=== PATIENT | male | born 1950 | race Hispanic/Latino ===

== ENCOUNTER 2016-08-24 05:44 | Day surgery (SDC) | payer MEDICARE ==
[2016-08-24] MEDS ORDERED: ANCEF/STERILE WATER 2 GM/20 ML 2 GM/20 ML SYRINGE IV NR (06:00)
[2016-08-24] MEDS ORDERED: NACL BACTERIOSTATIC INFILTRATI ONE (06:31)
[2016-08-24] MEDS ORDERED: PEPCID PO NR (07:00)
[2016-08-24] MEDS ORDERED: NEO SYNEPHRINE/NS Syringe(OR USE) IV ONE (07:00)
[2016-08-24] MEDS ORDERED: VERSED IV NR (07:00)
[2016-08-24] MEDS ORDERED: NACL 0.9% 1000 ML 1,000 ML IV SCH (07:00)
[2016-08-24] MEDS ORDERED: SUBLIMAZE ONE (07:30)
[2016-08-24] MEDS ORDERED: ZOFRAN ONE (07:30)
[2016-08-24] MEDS ORDERED: XYLOCAINE MPF 2% ONE ×2 (07:30)
[2016-08-24] MEDS ORDERED: DIPRIVAN 10 MG/ML IV ONE (07:30)
[2016-08-24] MEDS ORDERED: PROTAMINE SULFATE ONE (07:40)
[2016-08-24] MEDS ORDERED: HEPARIN 10,000 UNITS/10 ML ONE (07:40)
[2016-08-24] MEDS ORDERED: NACL 0.9% 500 ML 500 ML ONE (07:40)
[2016-08-24] MEDS ORDERED: MARCAINE 0.5% 30 ML INFILTRATI ONE (07:40)
--- NOTE | 2016-08-24 07:44 | Anesthesia Day of Surgery ---
Anesthesia Day of Surgery - Day of Surgery Patient Examined: Yes Patient H&P Reviewed: Yes Patient is NPO: Yes
--- NOTE | 2016-08-24 07:44 | Anesthesia Consultation ---
Anesthesia Consult and Med Hx Date of service: 08/24/16 - Airway Anesthetic Teeth Evaluation: Poor ROM Head & Neck: Adequate Mental/Hyoid Distance: Adequate Mallampati Class: Class II Intubation Access Assessment: Probably Good - Pulmonary Exam CTA: Yes - Cardiac Exam Cardiac Exam: RRR - Pre-Operative Health Status ASA Pre-Surgery Classification: ASA4 Proposed Anesthetic Plan: General - Pulmonary Hx Smoking: No Hx Asthma: No SOB: Yes (with exertion, recent right pleural effusion.) COPD: Yes Home Oxygen Therapy: Yes (O2 2L/m on 01/10 per ) Hx Sleep Apnea: No - Cardiovascular System Hx Hypertension: No (STATES HE DOESN'T HAVE HTN BUT TAKES METOPROLOL FOR HEART) Hx Coronary Artery Disease: No Hx Heart Attack/AMI: No Hx Pacemaker: Yes Hx Internal Defibrillator: Yes (2014. HAD CHECKED 3 MONTHS AGO. FOR CHF) Hx Peripheral Vascular Disease: Yes - Central Nervous System Hx Seizures: No CVA: No Hx Psychiatric Problems: No - Endocrine Hx Renal Disease: Yes (Dialysis T-T-S) Hx End Stage Renal Disease: Yes Hx Cirrhosis: No Hx Liver Disease: No Hx Thyroid Disease: No Hx Hypothyroidism: No Hx Hyperthyroidism: No - Hematic Hx Anemia: Yes Hx Sickle Cell Disease: No - Other Systems Hx Cancer: No - Additional Comments Anesthesia Medical History Comments: NAC
[2016-08-24] MEDS ORDERED: PROVENTIL IH NR (07:45)
[2016-08-24 08:00] LABS: Basophils % (Auto) 0.8 % (0.0-1.8); Eosinophils % (Auto) 1.3 % (0.0-4.3); Hematocrit 46.9 % (35.5-45.6); Hemoglobin 15.1 gm/dl (11.8-15.2); Mean Corpuscular HGB Conc 32 % (32-34); Mean Corpuscular Hemoglobin 31 pg (28-32); Mean Corpuscular Volume 97 fl (84-94); Red Blood Count 4.82 M/mm3 (3.65-5.03); Red Cell Distribution Width 15.8 % (13.2-15.2); White Blood Count 9.3 K/mm3 (4.5-11.0)
[2016-08-24 08:25] LABS: Platelet Count 94 K/mm3 (140-440)
[2016-08-24] MEDS ORDERED: AMIDATE IV ONE (09:29)
[2016-08-24 09:30] LABS: ISTAT K 5.8 (3.5-4.9)
[2016-08-24] MEDS ORDERED: DILAUDID IV PRN (10:08)
[2016-08-24] MEDS ORDERED: MARCAINE 0.25% INFILTRATI ONE ×2 (10:14)
[2016-08-24] MEDS ORDERED: NACL 0.9% IR ONE (10:14)
[2016-08-24] MEDS ORDERED: HEPARIN 10,000 UNITS/10 ML 2,000 UNIT in NACL 0.9% 500 ML 500 ML IR ONE (10:16)
--- NOTE | 2016-08-24 10:45 | Short Stay Summary ---
Short Stay Documentation Date of service: 08/24/16 Narrative H&P: See H&P - History H&P: obtained from office - Allergies and Medications Current Medications: Allergies No Known Allergies Allergy (Verified 06/16/15 08:44) Home Medications Medication Instructions Recorded Confirmed Last Taken Type Aspirin [Aspirin BABY CHEW TAB] 81 mg PO QDAY 06/16/15 08/24/16 08/23/16 History Cinacalcet HCl [Sensipar] 60 mg PO BID 06/16/15 08/24/16 08/23/16 History Metoprolol [Lopressor TAB] 50 mg PO BID 06/16/15 08/24/16 08/23/16 18:00 History Ipratropium/Albuterol Sulfate 1 ampul IH Q6HR PRN 10/03/15 08/24/16 07/26/16 History [Duoneb 0.5 mg-3 mg/3 ml Soln] oxyCODONE /ACETAMINOPHEN [Percocet 1 tab PO Q6HR PRN #20 tablet 10/25/1508/17/16 Rx 5/325] Active Medications Albuterol (Proventil) 2.5 mg IH PREOP NR Stop: 08/24/16 11:00 Last Admin: 08/24/16 07:53 Dose: 2.5 mg Famotidine (Pepcid) 20 mg PO PREOP NR Stop: 08/24/16 23:45 Last Admin: 08/24/16 07:22 Dose: 20 mg Hydromorphone HCl (Dilaudid) 0.25 mg IV Q10MIN PRN PRN Reason: Pain, Moderate (4-6) Stop: 08/27/16 10:09 Cefazolin Sodium (Ancef/Sterile Water 2 Gm/20 Ml) 2 gm in 20 mls @ 80 mls/hr IV PREOP NR PRN Reason: Protocol Stop: 08/24/16 23:59 Sodium Chloride (Nacl 0.9% 1000 Ml) 1,000 mls @ 42 mls/hr IV DIRECT TRISTIN Last Admin: 08/24/16 07:23 Dose: 42 mls/hr Midazolam HCl (Versed) 2 mg IV PREOP NR Stop: 08/24/16 23:59 Ondansetron HCl (Zofran) 4 mg IV ONCE PRN PRN Reason: Nausea And Vomiting Stop: 08/24/16 10:09 - Brief post op/procedure progress note Date of procedure: 08/24/16 Pre-op diagnosis: Complications of Dialysis Access Post-op diagnosis: same Procedure: Open Thrombectomy of Right Arm AV Fistula Anesthesia: LOW Surgeon: TESHA ALVAREZ Estimated blood loss: minimal Pathology: none Condition: stable - Disposition Condition at discharge: Good Disposition: DC-01 TO HOME OR SELFCARE Short Stay Discharge Plan Activity: no restrictions, other Wound: open to air, keep clean and dry, other (okay to wash the wound with soap and water but do not soak in water) Follow up with: PRIMARY CARE, [Primary Care Provider] - 7 Days Prescriptions: HYDROcodone/APAP 7.5-325 [[place] 7.5/325] 1 each PO Q6HR PRN #40 tablet PRN Reason: Pain
--- NOTE | 2016-08-24 10:52 | Operative Report ---
Operative Report Operative Report: Date of Procedure: 08/24/2016 Pre-operative Diagnosis: Complications of Dialysis Access Post-operative Diagnosis: Same Procedure(s): 1. Open Thrombectomy of Right Arm AV Fistula Surgeon: Hero Vogt M.D. Supervisor [employer] Office: [place] Anesthesia: Gen. endotracheal anesthesia EBL: Minimal Counts: Correct Complications: None Condition: Stable Findings: Successful thrombectomy right arm AV fistula with excellent thrill at the completion of the case. Specimen: None Indication: The patient is a 66-year-old male with a history of end-stage renal disease on hemodialysis through a right arm AV fistula. He had a previous percutaneous thrombectomy however there was residual thrombus within the fistula that was unable to be removed. He is in need of thrombectomy. He was given the risks, benefits, and alternative procedures and consented to procedure. Description of Procedure: The patient was brought to the operating room and laid in supine position. After general endotracheal anesthesia was achieved his right arm was prepped and draped in normal sterile fashion. A longitudinal incision was created over the fistula just proximal to the arterial anastomosis and carried onto the fascia and sharp dissection. This was dissected circumferentially and a vessel loop control the venous outflow as well as arterial inflow. I then used an 11 blade and Chavez scissors created a transverse venotomy to perform the thrombectomy. I initially used a 6 Jamia however this was too small to remove any significant amount of thrombus used a 6/10 Jamia graft adherent thrombus to be catheter and was able to remove all thrombus that was likely stuck to the wall of the first. After removing this the bleeding from the venous portion was much more robust. I then used 6-0 Prolene in interrupted fashion closed the venotomy. Prior to closing the venotomy I flushed the venous portions was arterial portion and completed the closure. Upon release of clamps was an excellent thrill in the fistula. Hemostasis was achieved with direct pressure. Once hemostasis was achieved the wound was closed in 2 layers using 3-0 Vicryl in an interrupted fashion a dermal layer and 4-0 Monocryl a running fashion subcuticular and then the wound was dressed with Dermabond. The patient tolerated the procedure well. All sponge, needle, and instrument counts were correct. The patient was taken to the recovery area in stable condition.
--- NOTE | 2016-08-24 11:02 | Post Anesthesia Evaluation ---
- Post Anesthesia Evaluation Patient Participated: Yes Airway Patent: Yes Stable Respiratory Function: Yes Nausea/Vomiting: No Temp > 96.8F: Yes Pain Manageable: Yes Adequeate Hydration: Yes Anesthesia Complications: No Block Receding Appropriately: Not Applicable Patient on Ventilator: No
[2016-08-24] MEDS ORDERED: ZOFRAN IV PRN (12:00)
[2016-08-24 12:54] VITALS: BP 159/98
== END 2016-08-24 12:24 | disposition home or self-care (01) ==
LOC: OR 05:44
PROVIDERS: ATTEND Surgery Vascular Surgery
DX: T82.868A Thrombosis due to vascular prosthetic devices, implants and grafts, initial encounter (principal); N18.6 End stage renal disease; J44.9 Chronic obstructive pulmonary disease, unspecified; D64.9 Anemia, unspecified; Z99.2 Dependence on renal dialysis; Z99.81 Dependence on supplemental oxygen; Z95.0 Presence of cardiac pacemaker; Z95.810 Presence of automatic (implantable) cardiac defibrillator; Z86.79 Personal history of other diseases of the circulatory system; Y83.2 Surgical operation with anastomosis, bypass or graft as the cause of abnormal reaction of the patient, or of later complication, without mention of misadventure at the time of the procedure
CPT/HCPCS: 36415; 36831; 82803; 84132; 85025; C1757; J0690; J1644; J2370; J2405; J2704; J3010; J7030; J7040; J2720

== ENCOUNTER 2017-02-25 08:27 | Inpatient (IN) | payer MEDICARE ==
[2017-02-25 09:08] LABS: Basophils % (Auto) 0.4 % (0.0-1.8); Eosinophils % (Auto) 1.5 % (0.0-4.3); Hematocrit 43.6 % (35.5-45.6); Hemoglobin 13.8 gm/dl (11.8-15.2); Mean Corpuscular HGB Conc 32 % (32-34); Mean Corpuscular Hemoglobin 31 pg (28-32); Mean Corpuscular Volume 98 fl (84-94); Red Blood Count 4.47 M/mm3 (3.65-5.03); Red Cell Distribution Width 16.2 % (13.2-15.2); White Blood Count 5.9 K/mm3 (4.5-11.0)
[2017-02-25 09:12] LABS: Platelet Count 96 K/mm3 (140-440)
[2017-02-25 09:29] LABS: Calcium 10.4 mg/dL (8.4-10.2); Chloride 93.5 mmol/L (98-107); Potassium 5.9 mmol/L (3.6-5.0)
[2017-02-25] MEDS ORDERED: HEPARIN 10,000 UNITS/10 ML ONE (10:03)
[2017-02-25] MEDS ORDERED: VERSED ONE (10:03)
[2017-02-25] MEDS ORDERED: HEPARIN/NS 5000 UNIT/500ML(CATH LAB) 500 ML IR ONE (10:03)
[2017-02-25] MEDS ORDERED: ANCEF/STERILE WATER 2 GM/20 ML 0 GM/0 ML SYRINGE IV ONE (10:04)
[2017-02-25] MEDS ORDERED: NACL 0.9% 500 ML 0 ML ONE (10:04)
[2017-02-25] MEDS ORDERED: XYLOCAINE 2% INFILTRATI ONE (10:04)
[2017-02-25] MEDS ORDERED: SUBLIMAZE ONE (10:04)
--- NOTE | 2017-02-25 10:45 | Event Note ---
Date: 02/25/17 Patient was brought in as an outpatient with a goal of performing a fistulogram from both and arm approach as well as a groin approach in an attempt to cross the patient's central venous occlusion and then placed drug coated balloons across this lesion in an attempt to allow it to remain open. The patient however presented with a potassium of 5.9 and the inability to lay flat secondary to volume overload. The patient stated that he had a full dialysis session on Saturday however, uncertain as to the amount of fluid removed. The patient's care was discussed with his investment associate Dr. Ballard who recommended admission to the hospitalist service at which point he lace orders for dialysis. The patient's procedure will be rescheduled for tomorrow.
[2017-02-25] MEDS ORDERED: NACL 0.9% 100 ML IV PRN (11:13)
[2017-02-25] MEDS ORDERED: DULCOLAX PR PRN ×2 (11:36→11:42)
[2017-02-25] MEDS ORDERED: TYLENOL PO PRN ×2 (11:36→11:42)
[2017-02-25] MEDS ORDERED: ZOFRAN IV PRN ×2 (11:36→11:42)
[2017-02-25] MEDS ORDERED: MILK OF MAGNESIA PO PRN (11:42)
--- NOTE | 2017-02-25 11:57 | History and Physical Report ---
History of Present Illness Date of admission: 02/25/17 11:36 Chief complaint: I need to have surgery History of present illness: 66 YO Male with COPD, HTN, CHF, ESRD on HD(T,R,Sa), DVT, presents to [facility] for elective procedure. Pt seen and evaluated in Preop and found to have hyperkalemia and Acute respiratory fajilure secondary to fluid overload. Pt seen and evaluated and admitted to hospitalist service. Pt acknowledges shortness of breath, but denies fever, chills, CP, Palpitations, NVD, Syncope, BRBPR, Productive cough, recent ill contacts, leg swelling, calf pain, prolonged travel/immobility. Past History Past Medical History: COPD, ESRD, heart failure, hypertension Past Surgical History: Other (AICD placement, Angioplasty) Social history: , lives with family. denies: smoking, alcohol abuse, prescription drug abuse Family history: CAD, hypertension Medications and Allergies Allergies Allergy/AdvReac Type Severity Reaction Status Date / Time No Known Allergies Allergy Verified 06/16/15 08:44 Home Medications Medication Instructions Recorded Confirmed Last Taken Type Aspirin [Aspirin BABY CHEW TAB] 81 mg PO QDAY 06/16/15 02/25/17 02/24/17 History 81mg Cinacalcet HCl [Sensipar] 60 mg PO BID 06/16/15 02/25/17 02/24/17 History 60mg Metoprolol [Lopressor TAB] 50 mg PO BID 06/16/15 02/25/17 02/24/17 History 50mg Ipratropium/Albuterol Sulfate 1 ampul IH Q6HR PRN 10/03/15 02/25/17 02/23/17 History [DUONEB *Not for PRN Use*] unit dose HYDROcodone/APAP 7.5-325 [[place] 1 each PO Q6HR PRN #40 tablet 08/24/16 02/25/17 02/24/17 Rx 7.5/325] 1 tab Acetaminophen/Diphenhydramine 1 tab PO PRN PRN 02/25/17 02/25/17 02/24/17 History [Tylenol Pm Ex-Strength Caplet] 1 tab Sevelamer Carbonate [Renvela] 800 mg PO TID 02/25/17 02/25/17 02/24/17 History 800mg Active Meds: Active Medications Acetaminophen (Tylenol) 650 mg PO Q4H PRN PRN Reason: Pain MILD(1-3)/Fever >100.5/RAMIREZ Acetaminophen (Tylenol) 650 mg PO Q4H PRN PRN Reason: Pain MILD(1-3)/Fever >100.5/RAMIREZ Aspirin (Baby Aspirin) 81 mg PO QDAY [facility] Bisacodyl (Dulcolax) 10 mg TN QDAY PRN PRN Reason: Constipation unrelieved by MOM Bisacodyl (Dulcolax) 10 mg TN QDAY PRN PRN Reason: Constipation unrelieved by MOM Heparin Sodium (Porcine) (Heparin) 5,000 unit SUB-Q Q12HR [facility] Sodium Chloride (Nacl 0.9%) 100 mls @ 999 mls/hr IV REINA PRN PRN Reason: Hypotension Magnesium Hydroxide (Milk Of Magnesia) 30 ml PO Q4H PRN PRN Reason: Constipation Metoprolol Tartrate (Lopressor) 50 mg PO BID [facility] Miscellaneous Medication (Cinacalcet Hcl [Sensipar]) 60 mg PO BID [facility] Miscellaneous Medication (Sevelamer Carbonate [Renvela]) 800 mg PO TID [facility] Morphine Sulfate (Morphine) 2 mg IV Q4H PRN PRN Reason: Pain, Moderate (4-6) Ondansetron HCl (Zofran) 4 mg IV Q8H PRN PRN Reason: N/V unrelieved by Odin Ondansetron HCl (Zofran) 4 mg IV Q8H PRN PRN Reason: N/V unrelieved by Odin Review of Systems Constitutional: weight gain, no weight loss, no fever, no sweats Ears, nose, mouth and throat: no ear pain, no ear discharge, no tinnitis, no decreased hearing Cardiovascular: shortness of breath, no chest pain, no orthopnea, no palpitations, no rapid/irregular heart beat, no edema, no syncope Respiratory: no cough, no cough with sputum, no excessive sputum, no hemoptysis Gastrointestinal: no nausea, no vomiting, no diarrhea, no constipation Genitourinary Male: no hematuria, no flank pain, no discharge, no urinary frequency, no urinary hesitancy Rectal: no pain, no incontinence, no bleeding Musculoskeletal: no neck stiffness, no neck pain, no shooting arm pain, no arm numbness/tingling, no low back pain, no shooting leg pain Integumentary: no rash, no pruritis, no redness, no sores, no wounds Neurological: no head injury, no transient paralysis, no paralysis, no weakness , no parathesias, no numbness, no tingling, no seizures Psychiatric: no anxiety, no memory loss, no change in sleep habits, no sleep disturbances, no insomnia, no hypersomnia, no change in appetite Endocrine: no cold intolerance, no heat intolerance, no polyphagia, no excessive thirst, no polydipsia, no polyuria, no nocturia Hematologic/Lymphatic: no easy bruising, no easy bleeding Allergic/Immunologic: no urticaria, no allergic rhinitis, no wheezing Exam - Constitutional Vitals: Temp Pulse Resp BP Pulse Ox 97.7 F 89 20 127/75 99 02/25/17 08:48 02/25/17 08:48 02/25/17 09:30 02/25/17 08:48 02/25/17 08:48 General appearance: Present: mild distress - EENT Eyes: Present: PERRL ENT: hearing intact, clear oral mucosa - Respiratory Respiratory effort: normal Respiratory: bilateral: diminished, rhonchi - Cardiovascular Heart Sounds: Present: S1 & S2. Absent: rub, click - Extremities Extremities: pulses symmetrical, No edema Peripheral Pulses: within normal limits - Abdominal General gastrointestinal: Present: soft, non-tender, non-distended, normal bowel sounds Male genitourinary: Present: normal - Integumentary Integumentary: Present: clear, warm, dry - Musculoskeletal Musculoskeletal: gait normal, strength equal bilaterally - Psychiatric Psychiatric: appropriate mood/affect, intact judgment & insight - Neurologic Neurologic: CNII-XII intact, moves all extremities Results - Labs CBC & Chem 7: 02/25/17 08:50 02/25/17 08:50 Labs: Abnormal lab results 02/25/17 02/25/17 Range/Units 08:50 08:50 MCV 98 H (84-94) fl RDW 16.2 H (13.2-15.2) % Plt Count 96 L (140-440) K/mm3 Lymph % (Auto) 9.1 L (13.4-35.0) % [place] % (Auto) 8.3 H (0.0-7.3) % Lymph # 0.5 L (1.2-5.4) K/mm3 Seg Neutrophils % 80.7 H (40.0-70.0) % Potassium 5.9 H (3.6-5.0) mmol/L Chloride 93.5 L (98-107) mmol/L BUN 46 H (9-20) mg/dL Creatinine 12.3 H (0.8-1.5) mg/dL Calcium 10.4 H (8.4-10.2) mg/dL Assessment and Plan - Patient Problems (1) CHF (congestive heart failure) Current Visit: Yes Status: Acute Plan to address problem: fluid restriction, daily weight, diuresis, dialysis as per nephrology, supplemental oxygen, monitor uop q shift to ensure negative fluid balance, (2) HTN (hypertension) Current Visit: Yes Status: Acute Plan to address problem: monitor BP q shift, (3) End stage renal disease on dialysis Current Visit: No Status: Chronic Plan to address problem: nephrology consulted for dialysis, dialysis as per renal team. (4) COPD (chronic obstructive pulmonary disease) Current Visit: Yes Status: Acute Plan to address problem: supplemental oxygen, nebs, aspiration precautions, pulmonary toilet (5) DVT prophylaxis Current Visit: Yes Status: Acute
[2017-02-25] MEDS: RENVELA PO SCH (13:22)
[2017-02-25] MEDS ORDERED: NON-FORMULARY (Sevelamer Carbonate [Renvela] 800 MG) PO SCH (14:00)
[2017-02-25] MEDS ORDERED: KIONEX PO ONE (16:03)
[2017-02-25] MEDS ORDERED: CALCIUM GLUCONATE 1,000 MG in NACL 0.9% 100 ML IV ONE (16:03)
--- NOTE | 2017-02-25 16:06 | Consultation ---
History of Present Illness - Reason for Consult Consult date: 02/25/17 end stage renal disease, hyperkalemia Requesting physician: SUZANNA FIGUEROA - History of Present Illness This is a 66 y.o., male with PMHX of hypertension, COPD, chronic systolic CHF with EF <15%, s/p AICD in 02/2014, h/o DVT not on anticoagulation due to h/o GI bleed, ESRD on HD on T/T/S, who presented to outpatient vascular surgery service for a fistulogram from both arm and groin approach for treatment of central venous occlusion. However patient was found to have hyperkalemia and acute respiratory distress secondary to fluid overload and renal consult is requested for management of ESRD and HD prior to procudure. Pt seen and evaluated at bedside, reports shortness of breath, but denies fever, chills, CP , Palpitations, NVD, Syncope, BRBPR, Productive cough, recent ill contacts, leg swelling, calf pain, prolonged travel/immobility. Past History Past Medical History: COPD, ESRD, heart failure, hypertension Past Surgical History: Other (AICD placement, Angioplasty) Social history: , lives with family. denies: smoking, alcohol abuse, prescription drug abuse Family history: CAD, hypertension Medications and Allergies Allergies Allergy/AdvReac Type Severity Reaction Status Date / Time No Known Allergies Allergy Verified 06/16/15 08:44 Home Medications Medication Instructions Recorded Confirmed Last Taken Type Aspirin [Aspirin BABY CHEW TAB] 81 mg PO QDAY 06/16/15 02/25/17 02/24/17 History 81mg Cinacalcet HCl [Sensipar] 60 mg PO BID 06/16/15 02/25/17 02/24/17 History 60mg Metoprolol [Lopressor TAB] 50 mg PO BID 06/16/15 02/25/17 02/24/17 History 50mg Ipratropium/Albuterol Sulfate 1 ampul IH Q6HR PRN 10/03/15 02/25/17 02/23/17 History [DUONEB *Not for PRN Use*] unit dose HYDROcodone/APAP 7.5-325 [[place] 1 each PO Q6HR PRN #40 tablet 08/24/16 02/25/17 02/24/17 Rx 7.5/325] 1 tab Acetaminophen/Diphenhydramine 1 tab PO PRN PRN 02/25/17 02/25/17 02/24/17 History [Tylenol Pm Ex-Strength Caplet] 1 tab Sevelamer Carbonate [Renvela] 800 mg PO TID 02/25/17 02/25/17 02/24/17 History 800mg Active Meds: Active Medications Acetaminophen (Tylenol) 650 mg PO Q4H PRN PRN Reason: Pain MILD(1-3)/Fever >100.5/RAMIREZ Acetaminophen (Tylenol) 650 mg PO Q4H PRN PRN Reason: Pain MILD(1-3)/Fever >100.5/RAMIREZ Aspirin (Baby Aspirin) 81 mg PO QDAY [facility] Bisacodyl (Dulcolax) 10 mg DC QDAY PRN PRN Reason: Constipation unrelieved by MOM Bisacodyl (Dulcolax) 10 mg DC QDAY PRN PRN Reason: Constipation unrelieved by MOM Cinacalcet (Sensipar) 60 mg PO BID [facility] Heparin Sodium (Porcine) (Heparin) 5,000 unit SUB-Q Q12HR [facility] Sodium Chloride (Nacl 0.9%) 100 mls @ 999 mls/hr IV REINA PRN PRN Reason: Hypotension Calcium Gluconate 1,000 mg/ (Sodium Chloride) 110 mls @ 660 mls/hr IV ONCE ONE Stop: 02/25/17 16:12 Magnesium Hydroxide (Milk Of Magnesia) 30 ml PO Q4H PRN PRN Reason: Constipation Metoprolol Tartrate (Lopressor) 50 mg PO BID [facility] Morphine Sulfate (Morphine) 2 mg IV Q4H PRN PRN Reason: Pain, Moderate (4-6) Ondansetron HCl (Zofran) 4 mg IV Q8H PRN PRN Reason: N/V unrelieved by Reglan Ondansetron HCl (Zofran) 4 mg IV Q8H PRN PRN Reason: N/V unrelieved by Reglan Sevelamer Carbonate (Renvela) 800 mg PO TID [facility] Last Admin: 02/25/17 13:22 Dose: 800 mg Sodium Polystyrene Sulfonate (Kionex) 30 gm PO ONCE ONE Stop: 02/25/17 16:04 Review of Systems All systems: negative Constitutional: fatigue, weakness Cardiovascular: shortness of breath, dyspnea on exertion Exam - Vital Signs Vital signs: Vital Signs Temp Pulse Resp BP Pulse Ox 97.7 F 89 20 127/75 99 02/25/17 08:48 02/25/17 08:48 02/25/17 08:48 02/25/17 08:48 02/25/17 08:48 - General Appearance General appearance: well-nourished, appears stated age, moderate distress, chronically ill EENT: ATNC, PERRL, mucous membranes moist Neck: Present: neck supple Respiratory: Decreased Breath Sounds Heart: regular, S1S2 Gastrointestinal: Present: normoactive bowel sounds, obese Integumentary: no rash, other (+ UE edema ) Neurologic: no focal deficit, alert and oriented x3, strength 5/5, CN 3-12 intact Psychiatric: mood/affect appropriate, cooperative Results - Lab Results 02/25/17 08:50 02/25/17 08:50 Most recent lab results Calcium 10.4 mg/dL (8.4-10.2) H 02/25/17 08:50 Laboratory Tests 10/21/15 10/21/15 10/21/15 05:35 05:35 05:35 PT 24.4 H INR 2.19 H Calcium Magnesium 1.9 TSH 6.450 H 02/25/17 08:50 PT INR Calcium 10.4 H Magnesium TSH Assessment and Plan - Patient Problems (1) End stage renal disease on dialysis Current Visit: No Status: Chronic Plan to address problem: HD today then cont HD on TTS schedule (2) Hyperkalemia Current Visit: No Status: Acute Plan to address problem: arranged HD today with 2 K bath for correction of hyperkalemia, cont 2g k renal diet (3) HTN (hypertension) Current Visit: Yes Status: Acute Plan to address problem: BP controlled on current meds (4) Mechanical complication of arteriovenous access or graft Current Visit: No Status: Acute Plan to address problem: follow vascular surgery recommendations. (5) Secondary hyperparathyroidism Current Visit: No Status: Acute Plan to address problem: cont renvela, sensipar (6) COPD (chronic obstructive pulmonary disease) Current Visit: Yes Status: Acute
[2017-02-25] MEDS ORDERED: NACL 0.9 (PRIMING MACHINE ONLY DIALYSIS) MC ONE (21:14)
[2017-02-25] MEDS ORDERED: NON-FORMULARY (Cinacalcet Hcl [Sensipar] 60 MG) PO SCH (22:00)
[2017-02-26] MEDS: RENVELA PO SCH ×4 (00:05→20:51)
[2017-02-26] MEDS: LOPRESSOR PO SCH ×3 (00:06→22:53)
[2017-02-26] MEDS: SENSIPAR PO SCH ×3 (00:10→22:51)
[2017-02-26] MEDS: HEPARIN SUB-Q SCH ×3 (00:11→22:52)
[2017-02-26] MEDS: MORPHINE IV PRN ×2 (00:31→12:56)
[2017-02-26 05:26] LABS: Basophils % (Auto) 0.8 % (0.0-1.8); Hemoglobin 13.1 gm/dl (11.8-15.2); Mean Corpuscular HGB Conc 33 % (32-34); Mean Corpuscular Hemoglobin 31 pg (28-32); Mean Corpuscular Volume 96 fl (84-94); Platelet Count 90 K/mm3 (140-440); Red Blood Count 4.19 M/mm3 (3.65-5.03); Red Cell Distribution Width 15.8 % (13.2-15.2); White Blood Count 4.2 K/mm3 (4.5-11.0)
[2017-02-26 05:43] LABS: Calcium 9.9 mg/dL (8.4-10.2); Chloride 93.4 mmol/L (98-107); Potassium 5.1 mmol/L (3.6-5.0)
[2017-02-26] MEDS ORDERED: HEPARIN 10,000 UNITS/10 ML ONE (09:19)
[2017-02-26] MEDS ORDERED: HEPARIN/NS 5000 UNIT/500ML(CATH LAB) 1,000 ML IR ONE (09:19)
[2017-02-26] MEDS ORDERED: NACL 0.9% 500 ML 500 ML ONE (09:20)
[2017-02-26] MEDS ORDERED: ANCEF/STERILE WATER 2 GM/20 ML 2 GM/20 ML SYRINGE IV ONE (09:20)
[2017-02-26] MEDS: VERSED ONE ×3 (09:35→10:16)
[2017-02-26] MEDS: SUBLIMAZE ONE ×4 (09:35→10:19)
[2017-02-26] MEDS: XYLOCAINE 2% INFILTRATI ONE ×3 (09:39→09:52)
[2017-02-26] MEDS ORDERED: NACL 0.9% 100 ML IV PRN (10:35)
--- NOTE | 2017-02-26 10:57 | Operative Report ---
Operative Report Operative Report: Date of Procedure: 02/26/2017 Pre-operative Diagnosis: Complications of Dialysis Access Post-operative Diagnosis: Same Procedure(s): 1. Ultrasound-Guided Access Right Common Femoral Vein 2. Ultrasound-Guided Access Left Common Femoral Vein 3. Diagnostic Inferior Venacavogram with Bilateral Iliac and Femoral Venogram 4. Access Right AV Fistula with 7 Peruvian Sheath Venous 5. Fistulogram with Central Venogram 6. Angioplasty of Right Subclavian Vein with 9 x 60 Lutonix Drug-Coated Balloon 7. Angioplasty of Right Innominate Vein with 12 x 40 Lutonix Drug-Coated Balloon 8. Radiologic Supervision with Interpretation Surgeon: Hero Vogt M.D. 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 Occlusion of bilateral external and common iliac veins as well as complete occlusion of infrarenal inferior vena cava. Specimen: None Indication: The patient is a 66-year-old male with a history of end-stage renal disease currently on hemodialysis through a right arm AV fistula. 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 He has significant right upper extremity swelling as well as significant facial swelling. He is in need of a fistula with possible intervention. He was given the risk, benefits, and alternative procedures and consented to the procedure. Description of Procedure: The patient was brought to the labor relations representative and laid in supine position. After he was adequately sedated bilateral groins and right upper extremity were prepped and draped in normal sterile fashion. Ultrasound was used to identify his right common femoral vein and confirmed patency. The overlying skin and soft tissue was anesthetized with lidocaine and then a small stab incision was created. An access needle was used to ultrasound guidance and the right common femoral vein and a J-wire was advanced. The J-wire was unable to be advanced into the central venous system under fluoroscopy so the dilator was advanced into the femoral vein and a venograms performed that demonstrated occlusion of the external iliac as well as common iliac veins with multiple collateral veins providing flow out of the common femoral vein. No flow was ever seen filling the inferior vena cava. At this point the plan to use the right iliac system to enter the IVC and eventually crossed the occluded SVC was abandoned. I was not going to attempt to use the left side. Ultrasound was used to identify the left common femoral vein and confirmed patency. The overlying skin and soft tissue was anesthetized with lidocaine. A small stab incision was made and then an 18-gauge needle was used to ultrasound guidance to the left common femoral vein. A 0.035 J-wire was then advanced into the vein and again I was unable to advance the J-wire into the central venous system. I performed a venogram through the 18-gauge needle and again noticed significant collateral flow that demonstrated occlusion of the external iliac vein as well as the common leg vein. Again no flow was seen entering the inferior vena cava. Attempts to use the IVC to cross the upper extremity occlusion were then completely abandoned. I anesthetized the skin overlying the fistula and use micropuncture technique to access the fistula towards the venous outflow and placed a 7 [place]uvian sheath by Seldinger technique. I performed a fistulogram that demonstrated the fistulous patent without significant stenosis however there is a flush occlusion of the subclavian vein in the mid and distal portion with no reconstitution of flow noted in the innominate or SVC. I advanced a vertebral catheter and 0.035 Advantage wire to the area of occlusion and then exchanged my 7 [place]uvian 4 cm sheath for a 7 [place]uvian 45 cm destination sheath. At this point I systemically heparinized the patient with 4000 units of heparin IV. I then advanced a 5 Fr Navicross catheter over the Advantage wire and was able to traverse the occluded subclavian and innominate occlusions and into the SVC and advanced a catheter wire to the atrium. I was eventually to advance the catheter wire into the suprarenal SVC and performed an inferior venacavogram that confirmed patency of the suprarenal IVC as well as occlusion of the infrarenal IVC. I used a 6 x 200 predilate the areas of occlusion and then perform balloon angioplasty of the subclavian lesion with a 9 x 60 Lutonix Drug-Coated Balloon and the Innominate occlusion with a 12 x 40 Lutonix Drug- coated Balloon. The follow up fistulagram demonstrated less than 20% residual stenosis and no reflux of contrast into the collateral branches. At this point all balloons and wires were removed and a 4-0 chromic in pursestring fashion was used to close the entry site. It was dressed with Dermabond. The patient tolerated the procedure well. All sponge, needle, and instrument counts were correct. The patient was taken back to his room in stable condition.
[2017-02-26] MEDS: BABY ASPIRIN PO SCH (12:24)
--- NOTE | 2017-02-26 14:50 | Progress Note ---
Assessment and Plan Assessment and plan: Fluid overload ESRD on HD Occlusion of subclavian vein HTN CHF Debility - Continue with hemodialysis - Continue metoprolol - Physical therapy consult - Patient was evaluated by vascular surgery and procedure was done DVT prophylaxis - On heparin Disposition - Continue inpatient care - Patient may need subacute rehabilitation. History Interval history: Patient was seen and evaluated while he was at the hemodialysis unit, patient has some shortness of breath, no chest pain. Hospitalist Physical - Physical exam Narrative exam: Not in cardiopulmonary distress. The patient appeared well nourished and normally developed. Swelling of the face with plethora. Vital signs as documented. Head exam is unremarkable. No scleral icterus . Neck is without jugular venous distension, thyromegaly, or carotid bruits. Lungs decreased air entry on the bibasilar area. Cardiac exam reveals regular rate and Rhythm. First and second heart sounds normal. No murmurs, rubs or gallops. Abdominal exam reveals normal bowel sounds, no masses, no organomegaly and no aortic enlargement. Extremities dry and scaly skin. 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 Generalized weakness. - Constitutional Vitals: Temp Pulse Resp BP Pulse Ox 98.2 F 68 24 86/54 100 02/26/17 14:10 02/26/17 14:10 02/26/17 14:10 02/26/17 14:10 02/26/17 12:42 General appearance: Present: mild distress Results - Labs CBC & Chem 7: 02/26/17 04:39 02/26/17 04:39 Labs: Laboratory Last Values WBC 4.2 K/mm3 (4.5-11.0) L 02/26/17 04:39 RBC 4.19 M/mm3 (3.65-5.03) 02/26/17 04:39 Hgb 13.1 gm/dl (11.8-15.2) 02/26/17 04:39 Hct 40.0 % (35.5-45.6) 02/26/17 04:39 MCV 96 fl (84-94) H 02/26/17 04:39 MCH 31 pg (28-32) 02/26/17 04:39 MCHC 33 % (32-34) 02/26/17 04:39 RDW 15.8 % (13.2-15.2) H 02/26/17 04:39 Plt Count 90 K/mm3 (140-440) L 02/26/17 04:39 Lymph % (Auto) 12.4 % (13.4-35.0) L 02/26/17 04:39 [place] % (Auto) 10.6 % (0.0-7.3) H 02/26/17 04:39 Eos % (Auto) 2.0 % (0.0-4.3) 02/26/17 04:39 Baso % (Auto) 0.8 % (0.0-1.8) 02/26/17 04:39 Lymph # 0.5 K/mm3 (1.2-5.4) L 02/26/17 04:39 [place] # 0.4 K/mm3 (0.0-0.8) 02/26/17 04:39 Eos # 0.1 K/mm3 (0.0-0.4) 02/26/17 04:39 Baso # 0.0 K/mm3 (0.0-0.1) 02/26/17 04:39 Seg Neutrophils % 74.2 % (40.0-70.0) H 02/26/17 04:39 Seg Neutrophils # 3.1 K/mm3 (1.8-7.7) 02/26/17 04:39 Sodium 139 mmol/L (137-145) 02/26/17 04:39 Potassium 5.1 mmol/L (3.6-5.0) H 02/26/17 04:39 Chloride 93.4 mmol/L (98-107) L 02/26/17 04:39 Carbon Dioxide 27 mmol/L (22-30) 02/26/17 04:39 Anion Gap 24 mmol/L 02/26/17 04:39 BUN 29 mg/dL (9-20) H 02/26/17 04:39 Creatinine 8.5 mg/dL (0.8-1.5) H 02/26/17 04:39 Estimated GFR 6 ml/min 02/26/17 04:39 BUN/Creatinine Ratio 3 % 02/26/17 04:39 Glucose 75 mg/dL (75-100) 02/26/17 04:39 Calcium 9.9 mg/dL (8.4-10.2) 02/26/17 04:39 Hyperkalemia
--- NOTE | 2017-02-26 18:39 | Progress Note ---
Assessment and Plan - Patient Problems (1) End stage renal disease on dialysis Current Visit: No Status: Chronic Plan to address problem: cont HD on TTS schedule (2) Hyperkalemia Current Visit: No Status: Acute Plan to address problem: to be corrected with HD, cont 2g k renal diet (3) HTN (hypertension) Current Visit: Yes Status: Acute Plan to address problem: BP controlled on current meds (4) Mechanical complication of arteriovenous access or graft Current Visit: No Status: Acute Plan to address problem: s/p vascular procedure today (5) Secondary hyperparathyroidism Current Visit: No Status: Acute Plan to address problem: cont renvela, sensipar (6) COPD (chronic obstructive pulmonary disease) Current Visit: Yes Status: Acute Subjective Date of service: 02/26/17 Principal diagnosis: ESRD Interval history: pt awake, alert, in NAD, underwent vascular procedure today Objective - Vital Signs Vital signs: Vital Signs - 12hr 02/26/17 02/26/17 02/26/17 07:42 11:03 11:15 Temperature 98.8 F 97.6 F Pulse Rate 103 H 93 H 71 Respiratory 20 14 19 Rate Blood Pressure 119/78 103/61 113/68 Blood Pressure [Left] O2 Sat by Pulse 97 98 93 Oximetry 02/26/17 02/26/17 02/26/17 11:30 11:45 12:23 Temperature Pulse Rate 91 H 94 H 91 H Respiratory 18 16 Rate Blood Pressure 107/63 107/63 Blood Pressure [Left] O2 Sat by Pulse 96 94 Oximetry 02/26/17 02/26/17 02/26/17 12:42 14:10 14:15 Temperature 98.2 F Pulse Rate 95 H 68 62 Respiratory 18 24 Rate Blood Pressure 86/54 88/54 Blood Pressure 105/68 [Left] O2 Sat by Pulse 100 Oximetry 02/26/17 02/26/17 02/26/17 14:30 14:45 15:00 Temperature Pulse Rate 62 68 60 Respiratory Rate Blood Pressure 88/54 78/52 100/72 Blood Pressure [Left] O2 Sat by Pulse Oximetry 02/26/17 02/26/17 02/26/17 15:15 15:30 15:45 Temperature Pulse Rate 60 64 62 Respiratory Rate Blood Pressure 90/56 94/62 88/52 Blood Pressure [Left] O2 Sat by Pulse Oximetry 02/26/17 02/26/1717 16:00 16:15 16:30 Temperature Pulse Rate 60 60 62 Respiratory Rate Blood Pressure 84/56 80/50 84/50 Blood Pressure [Left] O2 Sat by Pulse Oximetry 02/26/17 02/26/17 02/26/17 16:45 17:00 17:15 Temperature 98.3 F Pulse Rate 62 60 62 Respiratory 18 Rate Blood Pressure 88/50 84/52 82/50 Blood Pressure [Left] O2 Sat by Pulse Oximetry 02/26/17 17:29 Temperature Pulse Rate 62 Respiratory Rate Blood Pressure 86/54 Blood Pressure [Left] O2 Sat by Pulse Oximetry - General Appearance General appearance: appears stated age, moderate distress, chronically ill EENT: ATNC, PERRL, mucous membranes moist Neck: no JVD Respiratory: Present: Decreased Breath Sounds Cardiology: regular, S1S2 Gastrointestinal: normoactive bowel sounds, obese Integumentary: no rash, other (no edema ) Neurologic: no focal deficit, alert and oriented x3, strength 5/5, CN 3-12 intact Psychiatric: mood/affect appropriate, cooperative - Lab 02/26/17 04:39 02/26/17 04:39 Most recent lab results Calcium 9.9 mg/dL (8.4-10.2) 02/26/17 04:39
--- NOTE | 2017-02-27 00:20 | XRay Report ---
FINAL REPORT EXAM: XR CHEST 1V AP HISTORY: fluid overload TECHNIQUE: A portable semi upright view of the chest was obtained. FINDINGS: The heart is [id number] enlarged. The lungs are congested. There are patchy infiltrates in the lower 2/3 of the right lung. The right-sided effusion cannot be excluded. The thoracic aorta is mildly tortuous. There is a pacemaker overlying the left chest wall with the leads in the right atrium and right ventricle. The bones and soft tissues do not show any acute changes. IMPRESSION: Cardiomegaly with pulmonary vascular congestion. Non specific patchy airspace disease in the lower 2/3 of the right lung. Underlying pneumonia cannot be excluded.
[2017-02-27 04:30] LABS: Chloride 93.1 mmol/L (98-107); Potassium 5.1 mmol/L (3.6-5.0)
[2017-02-27] MEDS: MORPHINE IV PRN (08:32)
--- NOTE | 2017-02-27 10:40 | Progress Note ---
Assessment and Plan - Patient Problems (1) End stage renal disease on dialysis Current Visit: No Status: Chronic Plan to address problem: cont HD on TTS schedule (2) Hyperkalemia Current Visit: No Status: Acute Plan to address problem: to be corrected with HD, cont 2g k renal diet (3) HTN (hypertension) Current Visit: Yes Status: Acute Plan to address problem: BP controlled on current meds (4) Mechanical complication of arteriovenous access or graft Current Visit: No Status: Acute Plan to address problem: Follow vascular surgery recommendations. 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 (5) Secondary hyperparathyroidism Current Visit: No Status: Acute Plan to address problem: cont renvela, sensipar (6) COPD (chronic obstructive pulmonary disease) Current Visit: Yes Status: Acute Subjective Date of service: 02/27/17 Principal diagnosis: ESRD Interval history: pt awake, alert, in NAD Objective - Vital Signs Vital signs: Vital Signs - 12hr 02/26/17 02/27/17 02/27/17 22:53 01:00 04:23 Temperature 97.6 F Pulse Rate 69 86 Respiratory 24 20 Rate Blood Pressure 86/49 79/42 O2 Sat by Pulse 98 94 Oximetry 02/27/17 07:37 Temperature 97.6 F Pulse Rate 82 Respiratory 20 Rate Blood Pressure 91/47 O2 Sat by Pulse 98 Oximetry - General Appearance General appearance: appears stated age, chronically ill EENT: ATNC, PERRL, mucous membranes moist Neck: no JVD Respiratory: Present: Decreased Breath Sounds Cardiology: regular, S1S2 Gastrointestinal: normoactive bowel sounds, obese Integumentary: no rash, other (no edema ) Neurologic: no focal deficit, alert and oriented x3, strength 5/5, CN 3-12 intact Psychiatric: mood/affect appropriate, cooperative - Lab 02/26/17 04:39 02/27/17 04:00 Most recent lab results Calcium 8.0 mg/dL (8.4-10.2) L D 02/27/17 04:00
[2017-02-27] MEDS: RENVELA PO SCH ×2 (10:41→15:10)
[2017-02-27] MEDS: BABY ASPIRIN PO SCH (10:42)
[2017-02-27] MEDS: SENSIPAR PO SCH (10:42)
[2017-02-27] MEDS: HEPARIN SUB-Q SCH (10:42)
[2017-02-27] MEDS: LOPRESSOR PO SCH ×2 (10:42→21:11)
--- NOTE | 2017-02-27 13:29 | Progress Note ---
Assessment and Plan Assessment and plan: Fluid overload COPD on home oxygen ESRD on HD Occlusion of subclavian vein HTN CHF Debility - Continue with hemodialysis - Continue metoprolol - Physical therapy consult recommended subacute rehabilitation - Patient was evaluated by vascular surgery and procedure was done DVT prophylaxis - On heparin Disposition - Patient needs subacute rehabilitation placement as the patient refused to go there. Possible discharge tomorrow with home health. History Interval history: Patient was seen and evaluated at the bedside, patient has some shortness of breath, no chest pain. Hospitalist Physical - Physical exam Narrative exam: Not in cardiopulmonary distress. The patient appeared well nourished and normally developed. Swelling of the face with plethora. Vital signs as documented. Head exam is unremarkable. No scleral icterus . Neck is without jugular venous distension, thyromegaly, or carotid bruits. Lungs decreased air entry on the bibasilar area. Cardiac exam reveals regular rate and Rhythm. First and second heart sounds normal. No murmurs, rubs or gallops. Abdominal exam reveals normal bowel sounds, no masses, no organomegaly and no aortic enlargement. Extremities dry and scaly skin. SET UP PERSON: Alert and oriented 3. Generalized weakness. - Constitutional Vitals: Temp Pulse Resp BP Pulse Ox 97.6 F 82 20 91/47 98 02/27/17 07:37 02/27/17 10:42 02/27/17 07:37 02/27/17 10:42 02/27/17 07:37 General appearance: Present: mild distress Results - Labs CBC & Chem 7: 02/26/17 04:39 02/27/17 04:00 Labs: Laboratory Last Values WBC 4.2 K/mm3 (4.5-11.0) L 02/26/17 04:39 RBC 4.19 M/mm3 (3.65-5.03) 02/26/17 04:39 Hgb 13.1 gm/dl (11.8-15.2) 02/26/17 04:39 Hct 40.0 % (35.5-45.6) 02/26/17 04:39 MCV 96 fl (84-94) H 02/26/17 04:39 MCH 31 pg (28-32) 02/26/17 04:39 MCHC 33 % (32-34) 02/26/17 04:39 RDW 15.8 % (13.2-15.2) H 02/26/17 04:39 Plt Count 90 K/mm3 (140-440) L 02/26/17 04:39 Lymph % (Auto) 12.4 % (13.4-35.0) L 02/26/17 04:39 [place] % (Auto) 10.6 % (0.0-7.3) H 02/26/17 04:39 Eos % (Auto) 2.0 % (0.0-4.3) 02/26/17 04:39 Baso % (Auto) 0.8 % (0.0-1.8) 02/26/17 04:39 Lymph # 0.5 K/mm3 (1.2-5.4) L 02/26/17 04:39 [place] # 0.4 K/mm3 (0.0-0.8) 02/26/17 04:39 Eos # 0.1 K/mm3 (0.0-0.4) 02/26/17 04:39 Baso # 0.0 K/mm3 (0.0-0.1) 02/26/17 04:39 Seg Neutrophils % 74.2 % (40.0-70.0) H 02/26/17 04:39 Seg Neutrophils # 3.1 K/mm3 (1.8-7.7) 02/26/17 04:39 Sodium 138 mmol/L (137-145) 02/27/17 04:00 Potassium 5.1 mmol/L (3.6-5.0) H 02/27/17 04:00 Chloride 93.1 mmol/L (98-107) L 02/27/17 04:00 Carbon Dioxide 28 mmol/L (22-30) 02/27/17 04:00 Anion Gap 22 mmol/L 02/27/17 04:00 BUN 23 mg/dL (9-20) H 02/27/17 04:00 Creatinine 7.6 mg/dL (0.8-1.5) H 02/27/17 04:00 Estimated GFR 7 ml/min 02/27/17 04:00 BUN/Creatinine Ratio 3 % 02/27/17 04:00 Glucose 79 mg/dL (75-100) 02/27/17 04:00 Calcium 8.0 mg/dL (8.4-10.2) L D 02/27/17 04:00
[2017-02-28] MEDS: HEPARIN SUB-Q SCH ×2 (00:23→09:10)
[2017-02-28] MEDS: RENVELA PO SCH ×3 (00:24→14:06)
[2017-02-28] MEDS: SENSIPAR PO SCH ×2 (00:25→09:11)
[2017-02-28 04:13] LABS: Basophils % (Auto) 0.7 % (0.0-1.8); Eosinophils % (Auto) 2.7 % (0.0-4.3); Hematocrit 38.2 % (35.5-45.6); Hemoglobin 12.5 gm/dl (11.8-15.2); Mean Corpuscular HGB Conc 33 % (32-34); Mean Corpuscular Hemoglobin 32 pg (28-32); Mean Corpuscular Volume 97 fl (84-94); Red Blood Count 3.93 M/mm3 (3.65-5.03); Red Cell Distribution Width 16.4 % (13.2-15.2); White Blood Count 3.8 K/mm3 (4.5-11.0)
[2017-02-28 04:33] LABS: Calcium 7.8 mg/dL (8.4-10.2); Potassium 4.9 mmol/L (3.6-5.0)
[2017-02-28 04:36] LABS: Platelet Count 68 K/mm3 (140-440)
[2017-02-28] MEDS: LOPRESSOR PO SCH (09:14)
[2017-02-28] MEDS: BABY ASPIRIN PO SCH (09:15)
--- NOTE | 2017-02-28 12:13 | Discharge Summary ---
Providers - Providers Date of Admission: 02/25/17 11:36 Attending physician: GWEN JOSEPH MD 02/25/17 16:05 Consult to Physician [CONS] Routine Consulting Provider: JUWAN CERNA Reason For Exam: esrd Place consult to:: Nephrology Notified:: yes If yes, spoke with:: dr. cerna Comment:: que 02/26/17 14:30 Physical Therapy Evaluation and Treat [CONS] Routine Comment: Reason For Exam: debility Primary care physician: SANKET SALAZAR Hospitalization Reason for admission: Fluid overload, occlusion of right subclavian vein Procedures: 1. Ultrasound-Guided Access Right Common Femoral Vein 2. Ultrasound-Guided Access Left Common Femoral Vein 3. Diagnostic Inferior Venacavogram with Bilateral Iliac and Femoral Venogram 4. Access Right AV Fistula with 7 [place] Sheath Venous 5. Fistulogram with Central Venogram 6. Angioplasty of Right Subclavian Vein with 9 x 60 Lutonix Drug-Coated Balloon 7. Angioplasty of Right Innominate Vein with 12 x 40 Lutonix Drug-Coated Balloon 8. Radiologic Supervision with Interpretation Hospital course: 66 YO Male with COPD, HTN, CHF, ESRD on HD(TTS), DVT, presents to [facility] for elective procedure. Pt seen and evaluated in Preop and found to have hyperkalemia and Acute respiratory failure secondary to fluid overload. Pt seen and evaluated and admitted to hospitalist service. Pt acknowledges shortness of breath, but denies fever, chills, CP, Palpitations, NVD, Syncope, BRBPR, Productive cough, recent ill contacts, leg swelling, calf pain, prolonged travel /immobility. Patient was evaluated by vascular surgery and procedure was done successfully as stated above. Patient was admitted to the floor and nephrology was consulted and dialysis was continued as scheduled and patient was very weak and fragile and PT/OT was evaluated him and recommend subacute rehab. His wanted him to have acute rehab but the patient said he has been there before and declined subacute rehab and prefers to be discharged home with home health. patient was hemodynamically stable at the time of discharge. Patients medications were reviewed and updated at the time of discharge. Disposition: [id number] HOME UNDER HOME [facility] Time spent for discharge: 31 minutes - Discharge Diagnoses (1) Occlusion of right subclavian vein Status: Acute (2) CHF (congestive heart failure) Status: Acute (3) COPD (chronic obstructive pulmonary disease) Status: Acute (4) HTN (hypertension) Status: Acute (5) Facial swelling Status: Acute (6) Hyperkalemia Status: Acute Core Measure Documentation - Palliative Care Palliative Care/ Comfort Measures: Not Applicable - Core Measures Any of the following diagnoses?: none, history only (CHF) Exam - Physical Exam Narrative exam: Not in cardiopulmonary distress. The patient appeared well nourished and normally developed. Swelling of the face with plethora. Vital signs as documented. Head exam is unremarkable. No scleral icterus . Neck is without jugular venous distension, thyromegaly, or carotid bruits. Lungs decreased air entry on the bibasilar area. Cardiac exam reveals regular rate and Rhythm. First and second heart sounds normal. No murmurs, rubs or gallops. Abdominal exam reveals normal bowel sounds, no masses, no organomegaly and no aortic enlargement. Extremities dry and scaly skin. 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 Generalized weakness. - Constitutional Vitals: Temp Pulse Resp BP Pulse Ox 97.6 F 86 16 78/49 96 02/28/17 09:15 02/28/17 11:30 02/28/17 09:15 02/28/17 11:30 02/28/17 07:26 Plan Activity: no restrictions Weight Bearing Status: Full Weight Bearing Diet: low cholesterol, low salt, renal Follow up with: SANKET SALAZAR MD [Primary Care Provider] - 7 Days
[2017-02-28] MEDS ORDERED: NACL 0.9 (PRIMING MACHINE ONLY DIALYSIS) MC ONE (13:52)
--- NOTE | 2017-02-28 14:50 | Progress Note ---
Assessment and Plan - Patient Problems (1) End stage renal disease on dialysis Current Visit: No Status: Chronic Plan to address problem: cont HD on TTS schedule (2) Hyperkalemia Current Visit: No Status: Acute Plan to address problem: corrected with HD, cont 2g k renal diet (3) HTN (hypertension) Current Visit: Yes Status: Acute Plan to address problem: BP controlled on current meds (4) Mechanical complication of arteriovenous access or graft Current Visit: No Status: Acute Plan to address problem: Follow vascular surgery recommendations. 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 (5) Secondary hyperparathyroidism Current Visit: No Status: Acute Plan to address problem: cont renvela, sensipar (6) COPD (chronic obstructive pulmonary disease) Current Visit: Yes Status: Acute Subjective Date of service: 02/28/17 Principal diagnosis: ESRD Interval history: pt awake, alert, in NAD Objective - Vital Signs Vital signs: Vital Signs - 12hr 02/28/17 02/28/17 02/28/17 04:43 07:26 09:14 Temperature 98.5 F 98.8 F Pulse Rate 82 85 84 Respiratory 22 20 Rate Blood Pressure 90/55 97/60 94/50 O2 Sat by Pulse 96 96 Oximetry 02/28/17 02/28/17 02/28/17 09:15 09:30 09:37 Temperature 97.6 F Pulse Rate 87 87 83 Respiratory 16 Rate Blood Pressure 91/63 91/63 O2 Sat by Pulse Oximetry 02/28/17 02/28/17 02/28/17 09:45 10:00 10:15 Temperature Pulse Rate 80 80 81 Respiratory Rate Blood Pressure 93/46 85/57 85/57 O2 Sat by Pulse Oximetry 02/28/17 02/28/17 02/28/17 10:30 10:45 11:00 Temperature Pulse Rate 81 83 83 Respiratory Rate Blood Pressure 75/53 73/50 70/52 O2 Sat by Pulse Oximetry 02/28/17 02/28/17 11:15 11:30 Temperature Pulse Rate 83 86 Respiratory Rate Blood Pressure 75/49 78/49 O2 Sat by Pulse Oximetry - General Appearance General appearance: appears stated age, chronically ill EENT: ATNC, PERRL, mucous membranes moist Neck: no JVD Respiratory: Present: Decreased Breath Sounds Cardiology: regular, S1S2 Gastrointestinal: normoactive bowel sounds, obese Integumentary: no rash, other (no edema ) Neurologic: no focal deficit, alert and oriented x3, strength 5/5, CN 3-12 intact Psychiatric: mood/affect appropriate, cooperative - Lab 02/28/17 03:53 02/28/17 03:53 Most recent lab results Calcium 7.8 mg/dL (8.4-10.2) L 02/28/17 03:53
[2017-02-28 15:16] VITALS: BP 111/62
== END 2017-02-28 15:30 | disposition home health service (06) | DRG 252 ==
LOC: CATHLABREC 08:27 → 2B-ACE 11:36
PROVIDERS: ADMIT Internal Medicine; ATTEND Internal Medicine
PROC: 5A1D70Z Performance of Urinary Filtration, Intermittent, Less than 6 Hours Per Day (ICD-10-PCS; 2017-02-25)
PROC: 05733ZZ Dilation of Right Innominate Vein, Percutaneous Approach (ICD-10-PCS; principal; 2017-02-26)
PROC: 05753ZZ Dilation of Right Subclavian Vein, Percutaneous Approach (ICD-10-PCS; 2017-02-26)
PROC: B5161ZZ Fluoroscopy of Right Subclavian Vein using Low Osmolar Contrast (ICD-10-PCS; 2017-02-26)
PROC: B51V1ZZ Fluoroscopy of Other Veins using Low Osmolar Contrast (ICD-10-PCS; 2017-02-26)
PROC: B5191ZZ Fluoroscopy of Inferior Vena Cava using Low Osmolar Contrast (ICD-10-PCS; 2017-02-26)
PROC: B51H1ZZ Fluoroscopy of Bilateral Pelvic (Iliac) Veins using Low Osmolar Contrast (ICD-10-PCS; 2017-02-26)
PROC: B51D1ZZ Fluoroscopy of Bilateral Lower Extremity Veins using Low Osmolar Contrast (ICD-10-PCS; 2017-02-26)
PROC: 5A1D70Z Performance of Urinary Filtration, Intermittent, Less than 6 Hours Per Day (ICD-10-PCS; 2017-02-26)
PROC: 5A1D70Z Performance of Urinary Filtration, Intermittent, Less than 6 Hours Per Day (ICD-10-PCS; 2017-02-28)
DX: T82.590A Other mechanical complication of surgically created arteriovenous fistula, initial encounter (principal); N18.6 End stage renal disease; J96.00 Acute respiratory failure, unspecified whether with hypoxia or hypercapnia; N25.81 Secondary hyperparathyroidism of renal origin; I13.2 Hypertensive heart and chronic kidney disease with heart failure and with stage 5 chronic kidney disease, or end stage renal disease; I50.22 Chronic systolic (congestive) heart failure; I82.B11 Acute embolism and thrombosis of right subclavian vein; J44.9 Chronic obstructive pulmonary disease, unspecified; E87.5 Hyperkalemia; Y83.8 Other surgical procedures as the cause of abnormal reaction of the patient, or of later complication, without mention of misadventure at the time of the procedure; Y92.89 Other specified places as the place of occurrence of the external cause; Z99.2 Dependence on renal dialysis; Z95.810 Presence of automatic (implantable) cardiac defibrillator; Z82.49 Family history of ischemic heart disease and other diseases of the circulatory system; Z79.82 Long term (current) use of aspirin; Z79.899 Other long term (current) drug therapy; Z86.718 Personal history of other venous thrombosis and embolism
CPT/HCPCS: 36415; 36902; 71010; 80048; 82962; 85025; C1725; C1769; C1887; C1894; G8978-GP; G8979-GP; J0610; J0690; J1644; J2250; J2270; J3010; J7030; J7040; Q9967

== ENCOUNTER 2017-03-14 16:12 | Inpatient (IN) | payer MEDICARE ==
--- NOTE | 2017-03-14 18:48 | Emergency Department Report ---
ED Shortness of Breath HPI - General Chief Complaint: Dyspnea/Respdistress Stated Complaint: DIALYSIS Time Seen by Provider: 03/14/17 18:44 Source: patient, EMS Mode of arrival: Ambulatory Limitations: No Limitations - History of Present Illness Initial Comments: 66 YO MALE DIALYSIS PT WHO C/O SOB AFTER MISSING TWO SCHEDULED DIALYSIS TREATMENT. HE HAS NOT FELT WELL FOR ABOUT 3 DAYS BECAUSE OF COUGHING, N/V TWO EPISODES AND SOME ABDOMINAL PAIN. HIS ABDOMINAL PAIN IS RESOLVED ,SO HAS HIS NAUSEA BUT HE CONTINUES TO COUGH. MD Complaint: shortness of breath -: Gradual - Related Data Home Medications Medication Instructions Recorded Confirmed Last Taken Aspirin [Aspirin BABY CHEW TAB] 81 mg PO QDAY 06/16/15 02/25/17 02/24/17 81mg Cinacalcet HCl [Sensipar] 60 mg PO BID 06/16/15 02/25/17 02/24/17 60mg Metoprolol [Lopressor TAB] 50 mg PO BID 06/16/15 02/25/17 02/24/17 50mg Ipratropium/Albuterol Sulfate 1 ampul IH Q6HR PRN 10/03/15 02/25/17 02/23/17 [DUONEB *Not for PRN Use*] unit dose Acetaminophen/Diphenhydramine 1 tab PO PRN PRN 02/25/17 02/25/17 02/24/17 [Tylenol Pm Ex-Strength Caplet] 1 tab Sevelamer Carbonate [Renvela] 800 mg PO TID 02/25/17 02/25/17 02/24/17 800mg Previous Rx's Medication Instructions Recorded Last Taken Type HYDROcodone/APAP 7.5-325 [[place] 1 each PO Q6HR PRN #40 tablet 08/24/16 02/24/17 Rx 7.5-325 mg TAB] 1 tab Allergies Allergy/AdvReac Type Severity Reaction Status Date / Time No Known Allergies Allergy Verified 06/16/15 08:44 ED Review of Systems ROS: Stated complaint: DIALYSIS Other details as noted in HPI Constitutional: denies: chills, fever Eyes: denies: eye pain, eye discharge, vision change ENT: denies: ear pain, throat pain Respiratory: cough. denies: wheezing Cardiovascular: denies: chest pain, palpitations Endocrine: no symptoms reported Gastrointestinal: abdominal pain, nausea, vomiting. denies: diarrhea Genitourinary: denies: urgency, dysuria Musculoskeletal: arthralgia, myalgia. denies: back pain, joint swelling Skin: denies: rash, lesions Neurological: denies: headache, weakness, paresthesias Psychiatric: denies: anxiety, depression Hematological/Lymphatic: denies: easy bleeding, easy bruising ED Past Medical Hx - Past Medical History Hx Hypertension: No (STATES HE DOESN'T HAVE HTN BUT TAKES METOPROLOL FOR HEART) Hx Heart Attack/AMI: No Hx Congestive Heart Failure: Yes Hx Diabetes: No Hx Deep Vein Thrombosis: Yes (LEFT LEG) Hx Liver Disease: No Hx Renal Disease: Yes (Dialysis T-T-S) Hx Sickle Cell Disease: No Hx Arthritis: Yes (B/L knees) Hx Seizures: No Hx Asthma: No Hx COPD: Yes - Surgical History Hx Coronary Stent: No Hx Pacemaker: Yes Hx Internal Defibrillator: Yes (2014. HAD CHECKED 3 MONTHS AGO. FOR CHF) Additional Surgical History: fistula to right upper arm placed 3 wks - Social History Smoking Status: Never Smoker Substance Use Type: None - Medications Home Medications: Home Medications Medication Instructions Recorded Confirmed Last Taken Type Aspirin [Aspirin BABY CHEW TAB] 81 mg PO QDAY 06/16/15 02/25/17 02/24/17 History 81mg Cinacalcet HCl [Sensipar] 60 mg PO BID 06/16/15 02/25/17 02/24/17 History 60mg Metoprolol [Lopressor TAB] 50 mg PO BID 06/16/15 02/25/17 02/24/17 History 50mg Ipratropium/Albuterol Sulfate 1 ampul IH Q6HR PRN 10/03/15 02/25/17 02/23/17 History [DUONEB *Not for PRN Use*] unit dose HYDROcodone/APAP 7.5-325 [[place] 1 each PO Q6HR PRN #40 tablet 08/24/16 02/25/17 02/24/17 Rx 7.5-325 mg TAB] 1 tab Acetaminophen/Diphenhydramine 1 tab PO PRN PRN 02/25/17 02/25/17 02/24/17 History [Tylenol Pm Ex-Strength Caplet] 1 tab Sevelamer Carbonate [Renvela] 800 mg PO TID 02/25/17 02/25/17 02/24/17 History 800mg ED Physical Exam - General Limitations: No Limitations General appearance: alert, in distress - Head Head exam: Present: atraumatic, normocephalic - Eye Eye exam: Present: EOMI - ENT ENT exam: Present: mucous membranes dry - Neck Neck exam: Present: normal inspection, full ROM - Respiratory Respiratory exam: Present: rales (BILATERALLY) - Cardiovascular Cardiovascular Exam: Present: tachycardia - GI/Abdominal GI/Abdominal exam: Present: soft. Absent: distended, tenderness, guarding, rebound - Rectal Rectal exam: Present: deferred - Extremities Exam Extremities exam: Present: full ROM, other (HYPERPIGMENTATION BILATERL LOWER EXTREMITIES) - Neurological Exam Neurological exam: Present: alert, oriented X3, CN II-XII intact - Psychiatric Psychiatric exam: Present: normal mood, flat affect - Skin Skin exam: Present: warm, dry, intact. Absent: normal color (SEE ABOVE) ED Course Vital Signs 03/14/17 03/14/17 03/14/17 17:59 18:00 18:15 Temperature 98.2 F Pulse Rate 66 62 69 Respiratory 18 22 23 Rate Blood Pressure 113/67 110/67 113/67 O2 Sat by Pulse 99 99 Oximetry 03/14/17 03/14/17 03/14/17 18:31 18:45 19:00 Temperature Pulse Rate 74 60 65 Respiratory 14 22 15 Rate Blood Pressure 113/67 113/67 117/70 O2 Sat by Pulse 98 98 98 Oximetry - Reevaluation(s) Reevaluation #1: 03/14/17 20:58 POTASSIUM ELEVATED AND HAS BEEN TREATED APPROPRIATELY. HE WILL NOW HAVE EMERGENT DIALYSIS ED Medical Decision Making - Lab Data Result diagrams: 03/14/17 18:43 03/14/17 18:43 - EKG Data -: EKG Interpreted by Me (ATRIAL SENSED VENTRICULAR PACED COMPLEXES,LAD,LVH,PVC) - Radiology Data Radiology results: report reviewed (WOSENING APPEARANCE OF THE PULMONARY VASCULAR PROMINNENCE RIGHT SUPRAHILAR INFILTRATE MAY BE DEVELOPING AIRSP[CAITLIN DISEASE RATHER THAN UNILATERAL PULMONARY EDEMA. THERE IS A WORSENING DENSE INFILTRATE LOWER 2/3 OF THE RIGHT LUNG. 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 CT OF CHEST ORDERED BUT THE SCANNER CANNOT BE CLEARED FOR HIM. Critical Care Time: Yes Critical care time in (mins) excluding proc time.: 60 Critical care attestation.: If time is entered above; I have spent that time in minutes in the direct care of this critically ill patient, excluding procedure time. DARRELL Critical Care Time: 60MIN ED Disposition Clinical Impression: Hyperkalemia, diminished renal excretion Acute exacerbation of CHF (congestive heart failure) Qualifiers: Congestive heart failure type: unspecified congestive heart failure type Qualified Code(s): I50.9 - Heart failure, unspecified Dyspnea Qualifiers: Dyspnea type: unspecified Qualified Code(s): R06.00 - Dyspnea, unspecified Acute on chronic renal failure Qualifiers: Acute renal failure type: unspecified Chronic kidney disease stage: on chronic dialysis Qualified Code(s): N17.9 - Acute kidney failure, unspecified; N18.9 - Chronic kidney disease, unspecified; N18.9 - Chronic kidney disease, unspecified ; Z99.2 - Dependence on renal dialysis; Z99.2 - Dependence on renal dialysis; Z99.2 - Dependence on renal dialysis; Z99.2 - Dependence on renal dialysis Disposition: -09 OP ADMIT IP TO THIS HOSP Is pt being admited?: Yes Does the pt Need Aspirin: No Condition: Stable Referrals: PRIMARY CARE, [Primary Care Provider] - 3-5 Days
[2017-03-14 19:05] LABS: Basophils % (Auto) 0.6 % (0.0-1.8); Eosinophils # (Auto) 0.1 K/mm3 (0.0-0.4); Eosinophils % (Auto) 1.4 % (0.0-4.3); Hematocrit 38.6 % (35.5-45.6); Hemoglobin 13.3 gm/dl (11.8-15.2); Lymphocytes # (Auto) 0.3 K/mm3 (1.2-5.4); Lymphocytes % (Auto) 5.4 % (13.4-35.0); Mean Corpuscular HGB Conc 34 % (32-34); Mean Corpuscular Hemoglobin 33 pg (28-32); Mean Corpuscular Volume 96 fl (84-94); Monocytes # (Auto) 0.7 K/mm3 (0.0-0.8); Monocytes % (Auto) 13.8 % (0.0-7.3); Platelet Count 118 K/mm3 (140-440); Red Blood Count 4.03 M/mm3 (3.65-5.03); Red Cell Distribution Width 16.5 % (13.2-15.2)
[2017-03-14 19:18] LABS: Albumin 4.7 g/dL (3.9-5); Calcium 6.5 mg/dL (8.4-10.2)
[2017-03-14 19:20] LABS: Creatine Kinase MB 6.5 ng/mL (0.0-4.0)
[2017-03-14] MEDS ORDERED: D50W (25GM) Vial IV ONE (19:32)
[2017-03-14] MEDS ORDERED: CALCIUM CHLORIDE 1,000 MG in NACL 0.9% 100 ML IV ONE (19:33)
[2017-03-14] MEDS ORDERED: PROVENTIL IH ONE (19:34)
[2017-03-14 19:36] LABS: Chol/HDL Ratio 3.25 %
--- NOTE | 2017-03-14 19:48 | History and Physical Report ---
History of Present Illness Chief complaint: I feel sick History of present illness: 66 YO Male with COPD, HTN, CHF, ESRD on HD (T,R,Sa), DVT, presents to [facility] for evaluation. Pt states that he has experienced shortness of breath and swelling all over his body for the past 4 days with worsening symptoms over the past 3 days. Pt states that he has missed his past 2 dialysis sessions. Pt denies fever , chills, CP, Palpitations, NVD, Syncope, BRBPR, Productive cough, recent ill contacts, leg swelling, calf pain, prolonged travel/immobility. Pt seen and evaluated in ED and found to have Acute Respiratory failure secondary to fluid overload, as well as hyperkalemia without EKG changes. Nephrology consulted in ED for urgent dialysis. Pt sent directly to dialysis, and admitted to medical floor with remote telemetry. Past History Past Medical History: COPD, DVT, heart failure, hypertension Past Surgical History: Other (AICD placement, Angioplasty) Social history: , lives with family. denies: smoking, alcohol abuse, prescription drug abuse Family history: no significant family history (reviewed) Medications and Allergies Allergies Allergy/AdvReac Type Severity Reaction Status Date / Time No Known Allergies Allergy Verified 06/16/15 08:44 Home Medications Medication Instructions Recorded Confirmed Last Taken Type Aspirin [Aspirin BABY CHEW TAB] 81 mg PO QDAY 06/16/15 02/25/17 02/24/17 History 81mg Cinacalcet HCl [Sensipar] 60 mg PO BID 06/16/15 02/25/17 02/24/17 History 60mg Metoprolol [Lopressor TAB] 50 mg PO BID 06/16/15 02/25/17 02/24/17 History 50mg Ipratropium/Albuterol Sulfate 1 ampul IH Q6HR PRN 10/03/15 02/25/17 02/23/17 History [DUONEB *Not for PRN Use*] unit dose HYDROcodone/APAP 7.5-325 [[place] 1 each PO Q6HR PRN #40 tablet 08/24/16 02/25/17 02/24/17 Rx 7.5-325 mg TAB] 1 tab Acetaminophen/Diphenhydramine 1 tab PO PRN PRN 02/25/17 02/25/17 02/24/17 History [Tylenol Pm Ex-Strength Caplet] 1 tab Sevelamer Carbonate [Renvela] 800 mg PO TID 02/25/17 02/25/17 02/24/17 History 800mg Active Meds: Active Medications Dextrose (D50w (25gm) Syringe) 50 ml IV ONCE ONE Stop: 03/14/17 20:01 Review of Systems Constitutional: weight gain, no weight loss, no fever, no chills, no sweats Ears, nose, mouth and throat: no ear pain, no ear discharge, no tinnitis, no decreased hearing, no nose pain Cardiovascular: shortness of breath, leg edema, no chest pain, no orthopnea Respiratory: no cough, no cough with sputum, no excessive sputum, no hemoptysis Gastrointestinal: no nausea, no vomiting, no diarrhea, no constipation Genitourinary Male: no hematuria, no flank pain, no discharge, no urinary frequency, no urinary hesitancy Rectal: no pain, no incontinence, no bleeding Musculoskeletal: no neck pain, no shooting arm pain, no arm numbness/tingling, no low back pain Integumentary: no rash, no pruritis, no redness, no sores, no wounds Neurological: no transient paralysis, no paralysis, no weakness, no parathesias , no numbness Psychiatric: no memory loss, no change in sleep habits, no sleep disturbances, no insomnia, no hypersomnia Endocrine: no heat intolerance, no polyphagia, no excessive thirst, no polydipsia, no polyuria Hematologic/Lymphatic: no easy bruising, no easy bleeding Allergic/Immunologic: no urticaria, no allergic rhinitis, no wheezing Exam - Constitutional Vitals: Temp Pulse Resp BP Pulse Ox 98.2 F 65 15 117/70 98 03/14/17 17:59 03/14/17 19:00 03/14/17 19:00 03/14/17 19:00 03/14/17 19:00 General appearance: Present: mild distress - EENT Eyes: Present: PERRL ENT: hearing intact, clear oral mucosa - Neck Neck: Present: supple, normal ROM - Respiratory Respiratory effort: labored Respiratory: bilateral: diminished - Cardiovascular Heart Sounds: Present: S1 & S2. Absent: rub, click - Extremities Extremities: pulses symmetrical, No edema Extremity abnormal: edema Peripheral Pulses: within normal limits - Abdominal General gastrointestinal: Present: soft, non-tender, non-distended, normal bowel sounds Male genitourinary: Present: normal - Integumentary Integumentary: Present: clear, dry - Musculoskeletal Musculoskeletal: generalized weakness - Psychiatric Psychiatric: appropriate mood/affect, intact judgment & insight - Neurologic Neurologic: CNII-XII intact, moves all extremities Results - Labs CBC & Chem 7: 03/14/17 18:43 03/14/17 18:43 Labs: Abnormal lab results 03/14/17 03/14/17 03/14/17 Range/Units 18:43 18:43 18:43 MCV 96 H (84-94) fl MCH 33 H (28-32) pg RDW 16.5 H (13.2-15.2) % Plt Count 118 L (140-440) K/mm3 Lymph % (Auto) 5.4 L (13.4-35.0) % [place] % (Auto) 13.8 H (0.0-7.3) % Lymph # 0.3 L (1.2-5.4) K/mm3 Seg Neutrophils % 78.8 H (40.0-70.0) % Sodium 130 L (137-145) mmol/L Potassium 8.2 H* (3.6-5.0) mmol/L Chloride 83.7 L (98-107) mmol/L Carbon Dioxide 19 L (22-30) mmol/L BUN 86 H (9-20) mg/dL Creatinine 14.5 H (0.8-1.5) mg/dL Calcium 6.5 L (8.4-10.2) mg/dL Alkaline Phosphatase 140 H (35-129) units/L Total Creatine Kinase 524 H (55-170) units/L CK-MB (CK-2) 6.5 H (0.0-4.0) ng/mL Troponin T 0.046 H (0.00-0.029) ng/mL Assessment and Plan - Patient Problems (1) Acute hypoxemic respiratory failure Current Visit: Yes Status: Acute Plan to address problem: Supplemental oxygen, nebulizer therapy, NIPPV as clinically indicated, Urgent dialysis, (2) ESRD (end stage renal disease) on dialysis Current Visit: Yes Status: Acute Plan to address problem: Nephrology consulted in ED, dialysis today. (3) Fluid overload Current Visit: Yes Status: Acute Plan to address problem: Fluid restriction, monitor UOP q shift, urgent dialysis (4) CHF (congestive heart failure) Current Visit: No Status: Acute Plan to address problem: fluid restriction, afterload resuction, CXR, diuresis, supportive care, low sodium diet, urent dialysis, telemetry (5) Hyperkalemia Current Visit: Yes Status: Acute Plan to address problem: Calcium chloride, Insulin, Kayexelate, urgent dialysis. Nephrology consulted in ED. (6) DVT prophylaxis Current Visit: No Status: Acute
[2017-03-14] MEDS ORDERED: PROVENTIL IH PRN (19:54)
[2017-03-14] MEDS ORDERED: ZOFRAN IV PRN (19:54)
[2017-03-14] MEDS ORDERED: TYLENOL PO PRN (19:54)
[2017-03-14] MEDS ORDERED: D50W (25GM) Syringe IV ONE (20:00)
--- NOTE | 2017-03-14 20:02 | XRay Report ---
FINAL REPORT EXAM: XR CHEST 1V AP HISTORY: Dyspnea TECHNIQUE: Frontal chest x-ray Comparison: 02/26/2017 FINDINGS: Heart size is enlarged. There is a 2 lead pacer/AICD with 2 extra pacer leads present. 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 It is unchanged from previous. Component of pneumothorax may be present in the lower lobe as the pleura appears to be retracted from the pleural margin. Left costophrenic angle is clipped. There is persistent pulmonary vascular congestion which has a fluffier/blooming appearance than previously but unilaterally on the right. IMPRESSION: Worsening appearance of the pulmonary vascular prominence right suprahilar infiltrate right suprahilar infiltrate when compared with the previous may represent developing airspace disease rather than unilateral pulmonary edema. There is a worsening dense infiltrate lower 2/3 of the right lung. 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 Recommend CT chest for further characterization. There does not appear to be any shift although left costophrenic angle is clipped. There is partial silhouetting of the lateral left hemidiaphragm which may be consolidation. This is critical level 2 result relayed by OSR Cherri Jimenez on 03/14/2017 at 1959 hours.
[2017-03-14] MEDS ORDERED: NACL 0.9% 100 ML IV PRN (20:03)
[2017-03-14] MEDS ORDERED: KIONEX PO ONE (20:12)
--- NOTE | 2017-03-15 08:05 | Consultation ---
History of Present Illness - Reason for Consult Consult date: 03/15/17 end stage renal disease, hyperkalemia Requesting physician: JESSICA GREENE - History of Present Illness This is a 66 y.o., male with PMHX of hypertension, COPD, chronic systolic CHF with EF <15%, s/p AICD in 02/2014, h/o DVT not on anticoagulation due to h/o GI bleed, ESRD on HD on T/T/S, recent hospitalization for angioplasty of central venous occlusion. who now presents again to the ER with complaints of acute SOB , KEARNEY, pt missed last 2 HD treatments since he was sick due to "flu". in ER patient was found to have severe hyperkalemia with K> 8 and acute respiratory distress secondary to fluid overload with CXR showing worsening pulmonary vascular congestion. renal consult was requested for management of ESRD and HD. Past History Past Medical History: COPD, DVT, heart failure, hypertension Past Surgical History: Other (AICD placement, Angioplasty) Social history: , lives with family. denies: smoking, alcohol abuse, prescription drug abuse Family history: no significant family history (reviewed) Medications and Allergies Allergies Allergy/AdvReac Type Severity Reaction Status Date / Time No Known Allergies Allergy Verified 06/16/15 08:44 Home Medications Medication Instructions Recorded Confirmed Last Taken Type Aspirin [Aspirin BABY CHEW TAB] 81 mg PO QDAY 06/16/15 02/25/17 02/24/17 History 81mg Cinacalcet HCl [Sensipar] 60 mg PO BID 06/16/15 02/25/17 02/24/17 History 60mg Metoprolol [Lopressor TAB] 50 mg PO BID 06/16/15 02/25/17 02/24/17 History 50mg Ipratropium/Albuterol Sulfate 1 ampul IH Q6HR PRN 10/03/15 02/25/17 02/23/17 History [DUONEB *Not for PRN Use*] unit dose HYDROcodone/APAP 7.5-325 [[place] 1 each PO Q6HR PRN #40 tablet 08/24/16 02/25/17 02/24/17 Rx 7.5-325 mg TAB] 1 tab Acetaminophen/Diphenhydramine 1 tab PO PRN PRN 02/25/17 02/25/17 02/24/17 History [Tylenol Pm Ex-Strength Caplet] 1 tab Sevelamer Carbonate [Renvela] 800 mg PO TID 02/25/17 02/25/17 02/24/17 History 800mg Active Meds: Active Medications Acetaminophen (Tylenol) 650 mg PO Q4H PRN PRN Reason: Pain MILD(1-3)/Fever >100.5/RAMIREZ Albuterol (Proventil) 2.5 mg IH Q4HRT PRN PRN Reason: Shortness Of Breath Sodium Chloride (Nacl 0.9%) 100 mls @ 999 mls/hr IV REINA PRN PRN Reason: Hypotension Ondansetron HCl (Zofran) 4 mg IV Q8H PRN PRN Reason: N/V unrelieved by Reglan Review of Systems Constitutional: weakness Cardiovascular: shortness of breath, dyspnea on exertion, paroxysmal nocturnal dyspnea Respiratory: shortness of breath, dyspnea on exertion, congestion Exam - Vital Signs Vital signs: Vital Signs Temp Pulse Resp BP Pulse Ox 98.2 F 66 18 113/67 99 03/14/17 17:59 03/14/17 17:59 03/14/17 17:59 03/14/17 17:59 03/14/17 17:59 - General Appearance General appearance: well-nourished, appears stated age, moderate distress, chronically ill EENT: ATNC, PERRL, mucous membranes moist Neck: Present: neck supple Respiratory: Ronchi, Wheezes Heart: regular, S1S2 Gastrointestinal: Present: normoactive bowel sounds, obese Integumentary: no rash, other (++ RUE edema ) Neurologic: no focal deficit, alert and oriented x3, strength 5/5, CN 3-12 intact Psychiatric: mood/affect appropriate, cooperative Results - Lab Results 03/14/17 18:43 03/15/17 08:24 Most recent lab results Calcium 6.5 mg/dL (8.4-10.2) L 03/14/17 18:43 Assessment and Plan - Patient Problems (1) Hyperkalemia Current Visit: Yes Status: Acute Plan to address problem: emergent HD performed last night, K improved however still elevated. Will arrange another HD today using 2K bath (2) ESRD (end stage renal disease) on dialysis Current Visit: Yes Status: Acute Plan to address problem: HD today, then to cont HD TTS schedule (3) Fluid overload Current Visit: Yes Status: Acute Plan to address problem: target UF 2-3L as tolerated (4) Hyponatremia Current Visit: Yes Status: Acute Plan to address problem: likely hypervolemic in nature, fluid removal with HD (5) COPD (chronic obstructive pulmonary disease) Current Visit: No Status: Acute Plan to address problem: cont O2/bronchodilator therapy. (6) Mechanical complication of arteriovenous access or graft Current Visit: No Status: Acute Plan to address problem: s/p angioplasty of central vein stenosis. appreciate vascular surgery recommendations.
[2017-03-15 08:53] LABS: Calcium 7.1 mg/dL (8.4-10.2)
--- NOTE | 2017-03-15 09:03 | Cat Scan Report ---
CT scan of chest with IV contrast: History: Shortness of breath. Findings: No endobronchial or mediastinal mass. Mediastinal lymph nodes are identified and appear to be at upper limit of normal in size. No pericardial effusion. No evidence of axillary adenopathy. There is loculated fluid right lower chest with calcification of the anterior and posterior lateral wall. There is a mass identified anterior and upward with the calcified portion of the right lower lung parenchyma extending through the right lower lobe bronchus. No previous studies available. Calcification is noted along the posterior lateral left chest wall along the muscular and subcutaneous tissue. Impression: Impression: Findings as detailed above. At present no previous studies available for comparison. Further evaluation may be recommended if clinically indicated.
--- NOTE | 2017-03-15 10:19 | Consultation ---
History of Present Illness - Reason for Consult Consult date: 03/15/17 RUE swelling - History of Present Illness 66 year old male with COPD, HTN, CHF, ESRD on HD (T,R,Sa), DVT, presents to [facility] for evaluation. Pt states that he has experienced shortness of breath and swelling all over his body for the past 4 days with worsening symptoms over the past 3 days. Pt states that he has missed his past 2 dialysis sessions. On February 27 patient underwent a angioplasty of the right central veins with a drug-coated balloon. He reports that his right arm has mildly decreased in swelling, and he has had significant relief of his head and neck swelling since then. Since he has missed dialysis, he has become diffusely edematous. Past History Past Medical History: COPD, DVT, heart failure, hypertension Past Surgical History: Other (AICD placement, Angioplasty) Social history: , lives with family. denies: smoking, alcohol abuse, prescription drug abuse Family history: no significant family history (reviewed) Medications and Allergies Allergies Allergy/AdvReac Type Severity Reaction Status Date / Time No Known Allergies Allergy Verified 06/16/15 08:44 Home Medications Medication Instructions Recorded Confirmed Last Taken Type Aspirin [Aspirin BABY CHEW TAB] 81 mg PO QDAY 06/16/15 02/25/17 02/24/17 History 81mg Cinacalcet HCl [Sensipar] 60 mg PO BID 06/16/15 02/25/17 02/24/17 History 60mg Metoprolol [Lopressor TAB] 50 mg PO BID 06/16/15 02/25/17 02/24/17 History 50mg Ipratropium/Albuterol Sulfate 1 ampul IH Q6HR PRN 10/03/15 02/25/17 02/23/17 History [DUONEB *Not for PRN Use*] unit dose HYDROcodone/APAP 7.5-325 [[place] 1 each PO Q6HR PRN #40 tablet 08/24/16 02/25/17 02/24/17 Rx 7.5-325 mg TAB] 1 tab Acetaminophen/Diphenhydramine 1 tab PO PRN PRN 02/25/17 02/25/17 02/24/17 History [Tylenol Pm Ex-Strength Caplet] 1 tab Sevelamer Carbonate [Renvela] 800 mg PO TID 02/25/17 02/25/1702/24/17 History 800mg Active Meds: Active Medications Acetaminophen (Tylenol) 650 mg PO Q4H PRN PRN Reason: Pain MILD(1-3)/Fever >100.5/RAMIREZ Albuterol (Proventil) 2.5 mg IH Q4HRT PRN PRN Reason: Shortness Of Breath Sodium Chloride (Nacl 0.9%) 100 mls @ 999 mls/hr IV REINA PRN PRN Reason: Hypotension Ondansetron HCl (Zofran) 4 mg IV Q8H PRN PRN Reason: N/V unrelieved by [place] Review of Systems All systems: negative (see HPI) Exam - Constitutional Vitals: Temp Pulse Resp BP Pulse Ox 98.1 F 92 H 20 118/71 95 03/15/17 07:54 03/15/17 07:54 03/15/17 07:54 03/15/17 07:54 03/15/17 09:34 General appearance: Present: no acute distress - EENT Eyes: Present: EOM intact ENT: hearing intact - Neck Neck: Present: other (mild swelling head and neck) - Extremities Extremities: pulses intact (weak thrill RUE), abnormal (mild swelling RUE) - Psychiatric Psychiatric: appropriate mood/affect, cooperative Results - Labs CBC & Chem 7: 03/14/17 18:43 03/15/17 08:24 Labs: Abnormal lab results 03/14/17 03/14/17 03/14/17 Range/Units 18:43 18:43 18:43 MCV 96 H (84-94) fl MCH 33 H (28-32) pg RDW 16.5 H (13.2-15.2) % Plt Count 118 L (140-440) K/mm3 Lymph % (Auto) 5.4 L (13.4-35.0) % [place] % (Auto) 13.8 H (0.0-7.3) % Lymph # 0.3 L (1.2-5.4) K/mm3 Seg Neutrophils % 78.8 H (40.0-70.0) % Sodium 130 L (137-145) mmol/L Potassium 8.2 H* (3.6-5.0) mmol/L Chloride 83.7 L (98-107) mmol/L Carbon Dioxide 19 L (22-30) mmol/L BUN 86 H (9-20) mg/dL Creatinine 14.5 H (0.8-1.5) mg/dL Glucose (75-100) mg/dL Calcium 6.5 L (8.4-10.2) mg/dL Alkaline Phosphatase 140 H (35-129) units/L Total Creatine Kinase 524 H (55-170) units/L CK-MB (CK-2) 6.5 H (0.0-4.0) ng/mL Troponin T 0.046 H (0.00-0.029) ng/mL NT-Pro-B Natriuret Pep 87633 H (0-900) pg/mL 03/15/17 Range/Units 08:24 MCV (84-94) fl MCH (28-32) pg RDW (13.2-15.2) % Plt Count (140-440) K/mm3 Lymph % (Auto) (13.4-35.0) % [place] % (Auto) (0.0-7.3) % Lymph # (1.2-5.4) K/mm3 Seg Neutrophils % (40.0-70.0) % Sodium 136 L (137-145) mmol/L Potassium 5.6 H D (3.6-5.0) mmol/L Chloride 88.4 L (98-107) mmol/L Carbon Dioxide (22-30) mmol/L BUN 53 H (9-20) mg/dL Creatinine 10.6 H (0.8-1.5) mg/dL Glucose 72 L (75-100) mg/dL Calcium 7.1 L (8.4-10.2) mg/dL Alkaline Phosphatase (35-129) units/L Total Creatine Kinase (55-170) units/L CK-MB (CK-2) (0.0-4.0) ng/mL Troponin T (0.00-0.029) ng/mL NT-Pro-B Natriuret Pep (0-900) pg/mL Assessment and Plan 66-year-old male with end-stage renal disease who missed dialysis the last 2 sessions and presents diffusely edematous with severe hyperkalemia and underwent urgent hemodialysis. His head and neck swelling has significantly decreased since his central vein angioplasty. His right upper extremity has mildly decreased in size since his central vein angioplasty. He will continue to have swelling of his right upper extremity as long as he has his dialysis access due to his multiple comorbidities including severe congestive heart failure. This will never go away completely as long as he has his dialysis access which he needs for his end -stage renal disease. He has a weak thrill of his right upper extremity AV access which is likely secondary to his blood pressure. Recommend follow up on as an outpatient. No interventions at this time.
[2017-03-15] MEDS ORDERED: NACL 0.9% 100 ML IV PRN (10:57)
--- NOTE | 2017-03-15 12:13 | Progress Note ---
Assessment and Plan Assessment and plan: Patient is 66-year-old man with history of end-stage renal disease on hemodialysis TTS, status post multiple angioplasty for left arm hemodialysis access malfunction, nonischemic cardiomyopathy status post AICD w/ nsvt, chronic hypoxic respiratory failure on home O2 due to COPD, chronic systolic heart failure, hypertension and DVT not on anticoagulation due to acute GI bleed per cardiology note 10/19/2015 who presented to the ED with sob after missing 2 hemodialysis sessions (no reason given to me when asked). He was just discharged from here in February 28, 2017 after hemodialysis access malfunction/ swelling. -Acute on chronic hypoxic respiratory failure due to fluid overload from missed dialysis: Needing to hemodialysis -HD access malfunction: Vascular is following. -Acute on chronic systolic heart failure due to poor compliance: Counseling done -End Stage renal disease with hyperkalemia: Consulted nephrology -Electrolyte imbalances with hyperkalemia, hyponatremia, hypocalcemia: Hemodialysis should help and restart his medication Poor prognosis due to noncompliance: pt clinically looks very ill and debilitated but hemodynamics are stable Full code, patient states he wants his to make medical decisions if he is unable to do so. History Interval history: Patient was seen and examined. Follow-up on current diagnosis. Overnight uneventful. Patient complains of weakness and fatigue being tired. He has not productive cough. Imaging, nursing note, chart, labs and old chart reviewed. Discussed with patient. Hospitalist Physical - Physical exam Narrative exam: GEN: Ill-appearing, in no respiratory distress nasal Oxygen, awake alert oriented 3 HEENT: facial flushing, puffy face NECK: supple, neck/upper chest prominent veins CVS/HEART: RRR, NORMAL S1S2, NO JVD, pulses present bilaterally CHEST/LUNGS: Symmetrical chest expansion, diminished air entry bilaterally GI/Abdomen: soft, NTND, flank/dependant edema, good bowel sounds, no guarding or rebound /Bladder: no suprapubic tenderness, no CVA or paraspinal tenderness EXT/Skin: atrophy legs with chronic venous stasis ble MSK: FROM x 4 Neuro: CN 2-12 grossly intact, no new focal deficits Psych: calm - Constitutional Vitals: Temp Pulse Resp BP Pulse Ox 98.1 F 92 H 20 118/71 95 03/15/17 07:54 03/15/17 07:54 03/15/17 07:54 03/15/17 07:54 03/15/17 09:34 General appearance: Present: no acute distress Results - Labs CBC & Chem 7: 03/14/17 18:43 03/15/17 08:24 Labs: Laboratory Last Values WBC 5.2 K/mm3 (4.5-11.0) 03/14/17 18:43 RBC 4.03 M/mm3 (3.65-5.03) 03/14/17 18:43 Hgb 13.3 gm/dl (11.8-15.2) 03/14/17 18:43 Hct 38.6 % (35.5-45.6) 03/14/17 18:43 MCV 96 fl (84-94) H 03/14/17 18:43 MCH 33 pg (28-32) H 03/14/17 18:43 MCHC 34 % (32-34) 03/14/17 18:43 RDW 16.5 % (13.2-15.2) H 03/14/17 18:43 Plt Count 118 K/mm3 (140-440) L 03/14/17 18:43 Lymph % (Auto) 5.4 % (13.4-35.0) L 03/14/17 18:43 [place] % (Auto) 13.8 % (0.0-7.3) H 03/14/17 18:43 Eos % (Auto) 1.4 % (0.0-4.3) 03/14/17 18:43 Baso % (Auto) 0.6 % (0.0-1.8) 03/14/17 18:43 Lymph # 0.3 K/mm3 (1.2-5.4) L 03/14/17 18:43 [place] # 0.7 K/mm3 (0.0-0.8) 03/14/17 18:43 Eos # 0.1 K/mm3 (0.0-0.4) 03/14/17 18:43 Baso # 0.0 K/mm3 (0.0-0.1) 03/14/17 18:43 Seg Neutrophils % 78.8 % (40.0-70.0) H 03/14/17 18:43 Seg Neutrophils # 4.1 K/mm3 (1.8-7.7) 03/14/17 18:43 Sodium 136 mmol/L (137-145) L 03/15/17 08:24 Potassium 5.6 mmol/L (3.6-5.0) H D 03/15/17 08:24 Chloride 88.4 mmol/L (98-107) L 03/15/17 08:24 Carbon Dioxide 24 mmol/L (22-30) 03/15/17 08:24 Anion Gap 29 mmol/L 03/15/17 08:24 BUN 53 mg/dL (9-20) H 03/15/17 08:24 Creatinine 10.6 mg/dL (0.8-1.5) H 03/15/17 08:24 Estimated GFR 5 ml/min 03/15/17 08:24 BUN/Creatinine Ratio 5 % 03/15/17 08:24 Glucose 72 mg/dL (75-100) L 03/15/17 08:24 Calcium 7.1 mg/dL (8.4-10.2) L 03/15/17 08:24 Total Bilirubin 0.50 mg/dL (0.1-1.2) 03/14/17 18:43 AST 20 units/L (5-40) 03/14/17 18:43 ALT 13 units/L (7-56) 03/14/17 18:43 Alkaline Phosphatase 140 units/L (35-129) H 03/14/17 18:43 Total Creatine Kinase 524 units/L (55-170) H 03/14/17 18:43 CK-MB (CK-2) 6.5 ng/mL (0.0-4.0) H 03/14/17 18:43 CK-MB (CK-2) Rel Index 1.2 (0-4) 03/14/17 18:43 Troponin T 0.046 ng/mL (0.00-0.029) H 03/14/17 18:43 NT-Pro-B Natriuret Pep 46409 pg/mL (0-900) H 03/14/17 18:43 Total Protein 7.3 g/dL (6.3-8.2) 03/14/17 18:43 Albumin 4.7 g/dL (3.9-5) 03/14/17 18:43 Albumin/Globulin Ratio 1.8 % 03/14/17 18:43 Triglycerides 126 mg/dL (2-149) 03/14/17 18:43 Cholesterol 156 mg/dL (50-199) 03/14/17 18:43 LDL Cholesterol Direct 83 mg/dL (50-130) 03/14/17 18:43 HDL Cholesterol 48 mg/dL (40-59) 03/14/17 18:43 Cholesterol/HDL Ratio 3.25 % 03/14/17 18:43
[2017-03-15] MEDS ORDERED: DUONEB *Not for PRN Use IH (12:23)
[2017-03-15] MEDS ORDERED: NORCO 7.5/325 PO PRN (12:23)
[2017-03-15] MEDS ORDERED: NON-FORMULARY (Sevelamer Carbonate [Renvela] 800 MG) PO SCH (14:00)
[2017-03-15] MEDS: RENVELA PO SCH (14:00)
[2017-03-15] MEDS ORDERED: NON-FORMULARY (Cinacalcet Hcl [Sensipar] 60 MG) PO SCH (22:00)
[2017-03-15] MEDS: LOPRESSOR PO SCH (22:49)
[2017-03-15] MEDS: SENSIPAR PO SCH (22:50)
[2017-03-16 04:58] LABS: Hematocrit 37.4 % (35.5-45.6); Hemoglobin 12.6 gm/dl (11.8-15.2); Mean Corpuscular HGB Conc 34 % (32-34); Mean Corpuscular Hemoglobin 32 pg (28-32); Mean Corpuscular Volume 96 fl (84-94); Red Cell Distribution Width 16.4 % (13.2-15.2)
[2017-03-16 05:02] LABS: Platelet Count 70 K/mm3 (140-440)
[2017-03-16 05:13] LABS: Albumin 4.6 g/dL (3.9-5); Calcium 7.7 mg/dL (8.4-10.2)
[2017-03-16] MEDS ORDERED: NACL 0.9% 100 ML IV PRN (06:46)
--- NOTE | 2017-03-16 08:55 | Progress Note ---
Assessment and Plan - Patient Problems (1) Hyperkalemia Current Visit: Yes Status: Acute Plan to address problem: K improved with HD. cont 2g K renal diet (2) ESRD (end stage renal disease) on dialysis Current Visit: Yes Status: Acute Plan to address problem: cont HD TTS schedule (3) Fluid overload Current Visit: Yes Status: Acute Plan to address problem: target UF 2-3L as tolerated (4) Hyponatremia Current Visit: Yes Status: Acute Plan to address problem: likely hypervolemic in nature, improved with HD (5) COPD (chronic obstructive pulmonary disease) Current Visit: No Status: Acute Plan to address problem: cont O2/bronchodilator therapy. (6) Mechanical complication of arteriovenous access or graft Current Visit: No Status: Acute Plan to address problem: s/p angioplasty of central vein stenosis. no further intervention needed. appreciate vascular surgery recommendations. Subjective Date of service: 03/16/17 Principal diagnosis: ESRD Interval history: Pt awake, alert, in no acute respiratory distress Objective - Vital Signs Vital signs: Vital Signs - 12hr 03/15/17 03/16/17 22:49 02:00 Temperature 98.2 F Pulse Rate 106 H Respiratory 18 Rate Blood Pressure 79/47 Blood Pressure 117/51 [Right] O2 Sat by Pulse 93 Oximetry - General Appearance General appearance: appears stated age, obese, chronically ill EENT: ATNC, PERRL, mucous membranes moist Neck: no JVD Respiratory: Present: Clear to Ascultation Cardiology: regular, S1S2 Gastrointestinal: normoactive bowel sounds, obese Integumentary: no rash, other (++ RUE edema ) Neurologic: no focal deficit, alert and oriented x3, strength 5/5, CN 3-12 intact Psychiatric: mood/affect appropriate, cooperative - Lab 03/16/17 03:39 03/16/17 03:39 Most recent lab results Calcium 7.7 mg/dL (8.4-10.2) L 03/16/17 03:39
[2017-03-16] MEDS: SENSIPAR PO SCH ×2 (10:03→22:00)
[2017-03-16] MEDS: RENVELA PO SCH ×3 (10:03→20:40)
[2017-03-16] MEDS: BABY ASPIRIN PO SCH (10:03)
[2017-03-16] MEDS: LOPRESSOR PO SCH ×2 (10:04→22:00)
--- NOTE | 2017-03-16 11:10 | Discharge Summary ---
Providers - Providers Date of Admission: 03/14/17 19:55 Date of discharge: 03/17/17 Attending physician: JESSICA GREENE 03/15/17 08:06 Consult to Interventional Radiology [CONS] Routine Consulting Provider: ROSA BUENROSTRO Reason For Exam: LUE swelling, recent angioplasty for CV stenosis Place consult to:: answering service Notified:: yes Phone number called:: [phone] If yes, spoke with:: uzma Time called:: 08:14 Comment:: que 03/15/17 12:20 Consult to Physician [CONS] Routine Consulting Provider: JUWAN CERNA Reason For Exam: esrd needing hemodialysis, pt known to you Place consult to:: OFFICE Notified:: YES Time called:: 12:30 Comment:: QUE 03/16/17 11:03 Physical Therapy Evaluation and Treat [CONS] Routine Reason For Exam: adl evaluation Comment: 03/16/17 11:05 Occupational Therapy Evaluate and Treat [CONS] Routine Reason For Exam: ADLs evaluation Comment: 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 care physician: FLIGHT TEACHER Hospitalization Condition: Stable Hospital course: Patient is 66-year-old man with history of end-stage renal disease on hemodialysis TTS, status post multiple angioplasty for left arm hemodialysis access malfunction, chronic thrombocytopenia, nonischemic cardiomyopathy status post AICD w/ nsvt, chronic hypoxic respiratory failure on home 2L O2 due to COPD , chronic systolic heart failure, hypertension and DVT not on anticoagulation due to acute GI bleed per cardiology note 10/19/2015 who presented to the ED with sob after missing 2 hemodialysis sessions (says he was sick). He was just discharged from here in February 28, 2017 after hemodialysis access malfunction/ swelling. -Acute on chronic hypoxic respiratory failure due to fluid overload from missed dialysis: Needing to hemodialysis, he was on 2.5 liters of O2, at home he is on 2 liters, -HD access malfunction: Vascular is following. 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 ok to discharge after hemodialysis per renal Disposition: DC/[place]-03 [facility] Time spent for discharge: 35 minutes Core Measure Documentation - Palliative Care Palliative Care/ Comfort Measures: Not Applicable - Core Measures Any of the following diagnoses?: none - VTE Discharge Requirements Deep Vein Thrombosis/Pulmonary Embolism Present on Admission: No Has pt received <5 days of overlap therapy or INR<2.0: No Anticoagulant overlap therapy prescribed at discharge: No Contraindication No Overlap Therapy order at DC: Not Indicated Exam - Physical Exam Narrative exam: GEN: Ill-appearing, in no respiratory distress nasal Oxygen, awake alert oriented 3 HEENT: facial flushing, puffy face NECK: supple, neck/upper chest prominent veins CVS/HEART: RRR, NORMAL S1S2, NO JVD, pulses present bilaterally CHEST/LUNGS: Symmetrical chest expansion, diminished air entry bilaterally GI/Abdomen: soft, NTND, flank/dependant edema, good bowel sounds, no guarding or rebound /Bladder: no suprapubic tenderness, no CVA or paraspinal tenderness EXT/Skin: atrophy legs with chronic venous stasis ble MSK: FROM x 4 Neuro: CN 2-12 grossly intact, no new focal deficits Psych: calm - Constitutional Vitals: Temp Pulse Resp BP Pulse Ox 97.7 F 95 H 20 96/56 98 03/16/17 10:09 03/16/17 10:03/16/17 10:09 03/16/17 10:03/16/17 10:09 Plan Activity: other (no strenous activity ) Diet: renal Follow up with: PRIMARY CAREMD [Primary Care Provider] - 3-5 Days
--- NOTE | 2017-03-16 20:57 | Progress Note ---
Assessment and Plan Assessment and plan: Patient is 66-year-old man with history of end-stage renal disease on hemodialysis TTS, status post multiple angioplasty for left arm hemodialysis access malfunction, nonischemic cardiomyopathy status post AICD w/ nsvt, chronic hypoxic respiratory failure on home O2 due to COPD, chronic systolic heart failure, hypertension and DVT not on anticoagulation due to acute GI bleed per cardiology note 10/19/2015 who presented to the ED with sob after missing 2 hemodialysis sessions (no reason given to me when asked). He was just discharged from here in February 28, 2017 after hemodialysis access malfunction/ swelling. -Acute on chronic hypoxic respiratory failure due to fluid overload from missed dialysis: Needing to hemodialysis -HD access malfunction: Vascular is following. -Acute on chronic systolic heart failure due to poor compliance: Counseling done -End Stage renal disease with hyperkalemia: Consulted nephrology -Electrolyte imbalances with hyperkalemia, hyponatremia, hypocalcemia: Hemodialysis should help and restart his medication Poor prognosis due to noncompliance: pt clinically looks very ill and debilitated but hemodynamics are stable Full code, patient states he wants his to make medical decisions if he is unable to do so. History Interval history: Patient was seen and examined. Follow-up on current diagnosis. Overnight uneventful. Patient complains of weakness and fatigue being tired. He has not productive cough. Imaging, nursing note, chart, labs and old chart reviewed. Discussed with patient. Hospitalist Physical - Physical exam Narrative exam: GEN: Ill-appearing, in no respiratory distress nasal Oxygen, awake alert oriented 3 HEENT: facial flushing, puffy face NECK: supple, neck/upper chest prominent veins CVS/HEART: RRR, NORMAL S1S2, NO JVD, pulses present bilaterally CHEST/LUNGS: Symmetrical chest expansion, diminished air entry bilaterally GI/Abdomen: soft, NTND, flank/dependant edema, good bowel sounds, no guarding or rebound /Bladder: no suprapubic tenderness, no CVA or paraspinal tenderness EXT/Skin: atrophy legs with chronic venous stasis ble MSK: FROM x 4 Neuro: CN 2-12 grossly intact, no new focal deficits Psych: calm - Constitutional Vitals: Temp Pulse Resp BP Pulse Ox 97.7 F 68 20 133/60 98 03/16/17 16:15 03/16/17 16:15 03/16/17 16:15 03/16/17 16:15 03/16/17 11:12 General appearance: Present: no acute distress Results - Labs CBC & Chem 7: 03/16/17 03:39 03/16/17 03:39 Labs: Laboratory Last Values WBC 3.0 K/mm3 (4.5-11.0) L 03/16/17 03:39 RBC 3.90 M/mm3 (3.65-5.03) 03/16/17 03:39 Hgb 12.6 gm/dl (11.8-15.2) 03/16/17 03:39 Hct 37.4 % (35.5-45.6) 03/16/17 03:39 MCV 96 fl (84-94) H 03/16/17 03:39 MCH 32 pg (28-32) 03/16/17 03:39 MCHC 34 % (32-34) 03/16/17 03:39 RDW 16.4 % (13.2-15.2) H 03/16/17 03:39 Plt Count 70 K/mm3 (140-440) L 03/16/17 03:39 Lymph % (Auto) 5.4 % (13.4-35.0) L 03/14/17 18:43 [place] % (Auto) 13.8 % (0.0-7.3) H 03/14/17 18:43 Eos % (Auto) 1.4 % (0.0-4.3) 03/14/17 18:43 Baso % (Auto) 0.6 % (0.0-1.8) 03/14/17 18:43 Lymph # 0.3 K/mm3 (1.2-5.4) L 03/14/17 18:43 [place] # 0.7 K/mm3 (0.0-0.8) 03/14/17 18:43 Eos # 0.1 K/mm3 (0.0-0.4) 03/14/17 18:43 Baso # 0.0 K/mm3 (0.0-0.1) 03/14/17 18:43 Seg Neutrophils % 78.8 % (40.0-70.0) H 03/14/17 18:43 Seg Neutrophils # 4.1 K/mm3 (1.8-7.7) 03/14/17 18:43 Sodium 141 mmol/L (137-145) 03/16/17 03:39 Potassium 5.0 mmol/L (3.6-5.0) 03/16/17 03:39 Chloride 93.7 mmol/L (98-107) L 03/16/17 03:39 Carbon Dioxide 27 mmol/L (22-30) 03/16/17 03:39 Anion Gap 25 mmol/L 03/16/17 03:39 BUN 33 mg/dL (9-20) H 03/16/17 03:39 Creatinine 8.6 mg/dL (0.8-1.5) H 03/16/17 03:39 Estimated GFR 6 ml/min 03/16/17 03:39 BUN/Creatinine Ratio 4 % 03/16/17 03:39 Glucose 77 mg/dL (75-100) 03/16/17 03:39 Calcium 7.7 mg/dL (8.4-10.2) L 03/16/17 03:39 Total Bilirubin 0.40 mg/dL (0.1-1.2) 03/16/17 03:39 AST 21 units/L (5-40) 03/16/17 03:39 ALT 13 units/L (7-56) 03/16/17 03:39 Alkaline Phosphatase 124 units/L (35-129) 03/16/17 03:39 Total Creatine Kinase 524 units/L (55-170) H 03/14/17 18:43 CK-MB (CK-2) 6.5 ng/mL (0.0-4.0) H 03/14/17 18:43 CK-MB (CK-2) Rel Index 1.2 (0-4) 03/14/17 18:43 Troponin T 0.046 ng/mL (0.00-0.029) H 03/14/17 18:43 NT-Pro-B Natriuret Pep 42271 pg/mL (0-900) H 03/14/17 18:43 Total Protein 6.3 g/dL (6.3-8.2) 03/16/17 03:39 Albumin 4.6 g/dL (3.9-5) 03/16/17 03:39 Albumin/Globulin Ratio 2.7 % 03/16/17 03:39 Triglycerides 126 mg/dL (2-149) 03/14/17 18:43 Cholesterol 156 mg/dL (50-199) 03/14/17 18:43 LDL Cholesterol Direct 83 mg/dL (50-130) 03/14/17 18:43 HDL Cholesterol 48 mg/dL (40-59) 03/14/17 18:43 Cholesterol/HDL Ratio 3.25 % 03/14/17 18:43
[2017-03-17 05:18] LABS: Hematocrit 35.7 % (35.5-45.6); Hemoglobin 11.8 gm/dl (11.8-15.2); Mean Corpuscular HGB Conc 33 % (32-34); Mean Corpuscular Hemoglobin 32 pg (28-32); Mean Corpuscular Volume 98 fl (84-94); Red Blood Count 3.66 M/mm3 (3.65-5.03); Red Cell Distribution Width 16.4 % (13.2-15.2)
[2017-03-17 05:21] LABS: Platelet Count 78 K/mm3 (140-440)
[2017-03-17 09:11] VITALS: BP 84/34
[2017-03-17] MEDS: BABY ASPIRIN PO SCH (09:13)
[2017-03-17] MEDS: RENVELA PO SCH (09:13)
[2017-03-17] MEDS: SENSIPAR PO SCH (09:13)
--- NOTE | 2017-03-17 09:43 | Progress Note ---
Assessment and Plan - Patient Problems (1) Hyperkalemia Current Visit: Yes Status: Acute Plan to address problem: K improved with HD. cont 2g K renal diet (2) ESRD (end stage renal disease) on dialysis Current Visit: Yes Status: Acute Plan to address problem: stable for discharge from renal stand point. cont HD TTS schedule. (3) Fluid overload Current Visit: Yes Status: Acute Plan to address problem: improved wiht HD/UF (4) Hyponatremia Current Visit: Yes Status: Acute Plan to address problem: likely hypervolemic in nature, improved with HD (5) COPD (chronic obstructive pulmonary disease) Current Visit: No Status: Acute Plan to address problem: cont O2/bronchodilator therapy. (6) Mechanical complication of arteriovenous access or graft Current Visit: No Status: Acute Plan to address problem: s/p angioplasty of central vein stenosis. no further intervention needed. appreciate vascular surgery recommendations. Subjective Date of service: 03/17/17 Principal diagnosis: ESRD Interval history: Pt awake, alert, in no acute respiratory distress Objective - Vital Signs Vital signs: Vital Signs - 12hr 03/16/17 03/17/17 03/17/17 22:00 01:42 03:38 Temperature 99.4 F Pulse Rate 68 101 H 75 Respiratory 20 Rate Blood Pressure 85/51 O2 Sat by Pulse 96 98 93 Oximetry 03/17/17 09:05 Temperature 97.3 F L Pulse Rate 61 Respiratory 20 Rate Blood Pressure 84/34 O2 Sat by Pulse 100 Oximetry - General Appearance General appearance: appears stated age, chronically ill EENT: ATNC, PERRL, mucous membranes moist Neck: no JVD Respiratory: Present: Decreased Breath Sounds Cardiology: regular, S1S2 Gastrointestinal: normoactive bowel sounds, obese Integumentary: no rash, other (+ RUE edema ) Neurologic: no focal deficit, alert and oriented x3, strength 5/5, CN 3-12 intact Psychiatric: mood/affect appropriate, cooperative - Lab 03/17/17 04:46 03/16/17 03:39 Most recent lab results Calcium 7.7 mg/dL (8.4-10.2) L 03/16/17 03:39
[2017-03-17] MEDS: LOPRESSOR PO SCH (10:00)
--- NOTE | 2017-03-17 10:22 | Progress Note ---
Assessment and Plan Assessment and plan: Patient is 66-year-old man with history of end-stage renal disease on hemodialysis TTS, status post multiple angioplasty for left arm hemodialysis access malfunction, nonischemic cardiomyopathy status post AICD w/ nsvt, chronic hypoxic respiratory failure on home O2 due to COPD, chronic systolic heart failure, hypertension and DVT not on anticoagulation due to acute GI bleed per cardiology note 10/19/2015 who presented to the ED with sob after missing 2 hemodialysis sessions (no reason given to me when asked). He was just discharged from here in February 28, 2017 after hemodialysis access malfunction/ swelling. -Acute on chronic hypoxic respiratory failure due to fluid overload from missed dialysis: Needing to hemodialysis -HD access malfunction: Vascular is following. -Acute on chronic systolic heart failure due to poor compliance: Counseling done -End Stage renal disease with hyperkalemia: Consulted nephrology -Electrolyte imbalances with hyperkalemia, hyponatremia, hypocalcemia: Hemodialysis should help and restart his medication -Hypertension on lopressor 50mg bid, now low: reduce Lopressor to 12.5 mg bid Poor prognosis due to noncompliance: pt clinically looks very ill and debilitated but hemodynamics are stable Full code, patient states he wants his to make medical decisions if he is unable to do so. It appears patient came from [facility], and he is going back once accepted History Interval history: Patient was seen and examined. Follow-up on current diagnosis. Overnight uneventful. Patient complains of weakness and fatigue being tired. He has not productive cough. Imaging, nursing note, chart, labs and old chart reviewed. Discussed with patient. Hospitalist Physical - Physical exam Narrative exam: GEN: Ill-appearing, in no respiratory distress nasal Oxygen, awake alert oriented 3 HEENT: facial flushing, puffy face NECK: supple, neck/upper chest prominent veins CVS/HEART: RRR, NORMAL S1S2, NO JVD, pulses present bilaterally CHEST/LUNGS: Symmetrical chest expansion, diminished air entry bilaterally GI/Abdomen: soft, NTND, flank/dependant edema, good bowel sounds, no guarding or rebound /Bladder: no suprapubic tenderness, no CVA or paraspinal tenderness EXT/Skin: atrophy legs with chronic venous stasis ble MSK: FROM x 4 Neuro: CN 2-12 grossly intact, no new focal deficits Psych: calm - Constitutional Vitals: Temp Pulse Resp BP Pulse Ox 97.3 F L 61 20 84/34 100 03/17/17 09:05 03/17/17 09:05 03/17/17 09:05 03/17/17 09:05 03/17/17 09:05 General appearance: Present: no acute distress Results - Labs CBC & Chem 7: 03/17/17 04:46 03/16/17 03:39 Labs: Laboratory Last Values WBC 3.8 K/mm3 (4.5-11.0) L 03/17/17 04:46 RBC 3.66 M/mm3 (3.65-5.03) 03/17/17 04:46 Hgb 11.8 gm/dl (11.8-15.2) 03/17/17 04:46 Hct 35.7 % (35.5-45.6) 03/17/17 04:46 MCV 98 fl (84-94) H 03/17/17 04:46 MCH 32 pg (28-32) 03/17/17 04:46 MCHC 33 % (32-34) 03/17/17 04:46 RDW 16.4 % (13.2-15.2) H 03/17/17 04:46 Plt Count 78 K/mm3 (140-440) L 03/17/17 04:46 Lymph % (Auto) 5.4 % (13.4-35.0) L 03/14/17 18:43 Lares % (Auto) 13.8 % (0.0-7.3) H 03/14/17 18:43 Eos % (Auto) 1.4 % (0.0-4.3) 03/14/17 18:43 Baso % (Auto) 0.6 % (0.0-1.8) 03/14/17 18:43 Lymph # 0.3 K/mm3 (1.2-5.4) L 03/14/17 18:43 Lares # 0.7 K/mm3 (0.0-0.8) 03/14/17 18:43 Eos # 0.1 K/mm3 (0.0-0.4) 03/14/17 18:43 Baso # 0.0 K/mm3 (0.0-0.1) 03/14/17 18:43 Seg Neutrophils % 78.8 % (40.0-70.0) H 03/14/17 18:43 Seg Neutrophils # 4.1 K/mm3 (1.8-7.7) 03/14/17 18:43 Sodium 141 mmol/L (137-145) 03/16/17 03:39 Potassium 5.0 mmol/L (3.6-5.0) 03/16/17 03:39 Chloride 93.7 mmol/L (98-107) L 03/16/17 03:39 Carbon Dioxide 27 mmol/L (22-30) 03/16/17 03:39 Anion Gap 25 mmol/L 03/16/17 03:39 BUN 33 mg/dL (9-20) H 03/16/17 03:39 Creatinine 8.6 mg/dL (0.8-1.5) H 03/16/17 03:39 Estimated GFR 6 ml/min 03/16/17 03:39 BUN/Creatinine Ratio 4 % 03/16/17 03:39 Glucose 77 mg/dL (75-100) 03/16/17 03:39 Calcium 7.7 mg/dL (8.4-10.2) L 03/16/17 03:39 Total Bilirubin 0.40 mg/dL (0.1-1.2) 03/16/17 03:39 AST 21 units/L (5-40) 03/16/17 03:39 ALT 13 units/L (7-56) 03/16/17 03:39 Alkaline Phosphatase 124 units/L (35-129) 03/16/17 03:39 Total Creatine Kinase 524 units/L (55-170) H 03/14/17 18:43 CK-MB (CK-2) 6.5 ng/mL (0.0-4.0) H 03/14/17 18:43 CK-MB (CK-2) Rel Index 1.2 (0-4) 03/14/17 18:43 Troponin T 0.046 ng/mL (0.00-0.029) H 03/14/17 18:43 NT-Pro-B Natriuret Pep 69358 pg/mL (0-900) H 03/14/17 18:43 Total Protein 6.3 g/dL (6.3-8.2) 03/16/17 03:39 Albumin 4.6 g/dL (3.9-5) 03/16/17 03:39 Albumin/Globulin Ratio 2.7 % 03/16/17 03:39 Triglycerides 126 mg/dL (2-149) 03/14/17 18:43 Cholesterol 156 mg/dL (50-199) 03/14/17 18:43 LDL Cholesterol Direct 83 mg/dL (50-130) 03/14/17 18:43 HDL Cholesterol 48 mg/dL (40-59) 03/14/17 18:43 Cholesterol/HDL Ratio 3.25 % 03/14/17 18:43
[2017-03-17] MEDS ORDERED: LOPRESSOR PO SCH (22:00)
== END 2017-03-17 12:35 | DRG 291 ==
LOC: ED 16:12 → 2B-ACE 19:55
PROVIDERS: ADMIT Internal Medicine; ATTEND Internal Medicine
PROC: 5A1D70Z Performance of Urinary Filtration, Intermittent, Less than 6 Hours Per Day (ICD-10-PCS; principal; 2017-03-15)
PROC: 5A1D70Z Performance of Urinary Filtration, Intermittent, Less than 6 Hours Per Day (ICD-10-PCS; 2017-03-16)
DX: I13.2 Hypertensive heart and chronic kidney disease with heart failure and with stage 5 chronic kidney disease, or end stage renal disease (principal); I50.23 Acute on chronic systolic (congestive) heart failure; N18.6 End stage renal disease; J96.21 Acute and chronic respiratory failure with hypoxia; E87.1 Hypo-osmolality and hyponatremia; N17.9 Acute kidney failure, unspecified; Z99.2 Dependence on renal dialysis; I42.9 Cardiomyopathy, unspecified; M17.0 Bilateral primary osteoarthritis of knee; J44.9 Chronic obstructive pulmonary disease, unspecified; E83.51 Hypocalcemia; D69.6 Thrombocytopenia, unspecified; E87.5 Hyperkalemia; Z79.82 Long term (current) use of aspirin; Z79.899 Other long term (current) drug therapy; Z86.718 Personal history of other venous thrombosis and embolism; Z95.810 Presence of automatic (implantable) cardiac defibrillator; Z95.828 Presence of other vascular implants and grafts; Z71.89 Other specified counseling; Z91.15 Patient's noncompliance with renal dialysis
CPT/HCPCS: 36415; 71045; 71260; 80048; 80053; 80061; 82550; 82553; 83880; 84484; 85025; 85027; 87400; 93005; 93010; 94760; 96374; 96375; J1815; Q9967

== ENCOUNTER 2017-04-12 06:33 | Day surgery (SDC) | payer MEDICARE ==
[~2017-04-12 06:33] MED LIST: ANCEF/STERILE WATER 2 GM/20 ML 2 GM/20 ML SYRINGE IV NR; NACL 0.9% 1000 ML 1,000 ML IV SCH; NEO SYNEPHRINE ONE; ePHEDrine SULFATE ONE
[2017-04-12] MEDS ORDERED: NACL 0.9% 500 ML 500 ML IV SCH (07:00)
[2017-04-12 07:19] LABS: Basophils % (Auto) 1.3 % (0.0-1.8); Eosinophils # (Auto) 0.2 K/mm3 (0.0-0.4); Eosinophils % (Auto) 5.8 % (0.0-4.3); Hemoglobin 12.4 gm/dl (11.8-15.2); Lymphocytes # (Auto) 0.4 K/mm3 (1.2-5.4); Lymphocytes % (Auto) 10.7 % (13.4-35.0); Mean Corpuscular HGB Conc 33 % (32-34); Mean Corpuscular Hemoglobin 31 pg (28-32); Mean Corpuscular Volume 96 fl (84-94); Monocytes # (Auto) 0.3 K/mm3 (0.0-0.8); Monocytes % (Auto) 7.5 % (0.0-7.3); Platelet Count 119 K/mm3 (140-440); Red Blood Count 3.95 M/mm3 (3.65-5.03); Red Cell Distribution Width 16.2 % (13.2-15.2)
[2017-04-12] MEDS ORDERED: DIPRIVAN 10 MG/ML IV ONE ×3 (07:51→07:52)
[2017-04-12] MEDS ORDERED: DILAUDID ONE (07:52)
[2017-04-12] MEDS ORDERED: VERSED IV ONE (07:52)
[2017-04-12] MEDS ORDERED: XYLOCAINE MPF 2% ONE (07:54)
[2017-04-12] MEDS ORDERED: D50W (25GM) Syringe IV ONE (08:24)
[2017-04-12] MEDS ORDERED: HEPARIN/NS 5000 UNIT/500ML(CATH LAB) 500 ML IR ONE (08:27)
[2017-04-12] MEDS ORDERED: XYLOCAINE 2% INFILTRATI ONE (08:27)
[2017-04-12] MEDS ORDERED: ANCEF/STERILE WATER 2 GM/20 ML 2 GM/20 ML SYRINGE IV ONE (08:33)
[2017-04-12] MEDS ORDERED: DILAUDID IV PRN (08:36)
--- NOTE | 2017-04-12 08:43 | Anesthesia Consultation ---
Anesthesia Consult and Med Hx Date of service: 04/12/17 - Airway Anesthetic Teeth Evaluation: Good ROM Head & Neck: Adequate Mental/Hyoid Distance: Adequate Mallampati Class: Class II Intubation Access Assessment: Probably Good - Pulmonary Exam CTA: Yes - Cardiac Exam Cardiac Exam: RRR - Pre-Operative Health Status ASA Pre-Surgery Classification: ASA4 Proposed Anesthetic Plan: MAC - Pulmonary Hx Smoking: No Hx Asthma: No SOB: Yes (with exertion, recent right pleural effusion.) COPD: Yes Hx Sleep Apnea: Yes - Cardiovascular System Hx Hypertension: Yes (2006) Hx Coronary Artery Disease: No Hx Heart Attack/AMI: No Hx Pacemaker: Yes Hx Internal Defibrillator: Yes (2013. HAD CHECKED 3 MONTHS AGO. FOR CHF) Hx Peripheral Vascular Disease: Yes - Central Nervous System Hx Seizures: No CVA: No Hx Psychiatric Problems: No - Endocrine Hx Renal Disease: Yes (Dialysis T-T-S) Hx End Stage Renal Disease: Yes (2006) Hx Cirrhosis: No Hx Liver Disease: No Hx Thyroid Disease: No Hx Hypothyroidism: No Hx Hyperthyroidism: No - Hematic Hx Anemia: Yes Hx Sickle Cell Disease: No - Other Systems Hx Cancer: No
--- NOTE | 2017-04-12 08:43 | Anesthesia Day of Surgery ---
Anesthesia Day of Surgery - Day of Surgery Patient Examined: Yes Patient H&P Reviewed: Yes Patient is NPO: Yes Beta Blockers: Yes Cardiac Clearance: Yes Pulmonary Clearance: Yes
[2017-04-12] MEDS ORDERED: NACL 0.9% 1000 ML 1,000 ML ONE (08:52)
[2017-04-12] MEDS ORDERED: NACL 0.9% 100 ML ONE (09:14)
--- NOTE | 2017-04-12 10:44 | Short Stay Summary ---
Short Stay Documentation Date of service: 04/12/17 Narrative H&P: SVC syndrome - History Principal diagnosis: SVC syndrome H&P: obtained from office - Allergies and Medications Current Medications: Allergies No Known Allergies Allergy (Verified 06/16/15 08:44) Home Medications Medication Instructions Recorded Confirmed Last Taken Type Aspirin [Aspirin BABY CHEW TAB] 81 mg PO QDAY #30 tab.chew 04/08/17 04/12/1703/28 Rx Cinacalcet HCl [Sensipar] 60 mg PO BID #60 tablet 04/08/17 04/12/17 04/11/17 Rx HYDROcodone/APAP 7.5-325 [[place] 1 each PO Q6HR PRN #20 tablet 04/08/17 04/12/17 04/11/17 Rx 7.5-325 mg TAB] Ipratropium/Albuterol Sulfate 1 ampul IH Q6HR PRN #30 ampul.neb 04/08/1704/11/17 Rx [DUONEB *Not for PRN Use*] Metoprolol [Lopressor TAB] 25 mg PO BID #60 tablet 04/08/17 04/12/17 04/11/17 Rx Sevelamer Carbonate [Renvela] 800 mg PO TID #90 tablet 04/08/17 04/12/17 Rx Active Medications Hydromorphone HCl (Dilaudid) 0.25 mg IV Q10MIN PRN PRN Reason: Pain, Moderate (4-6) Stop: 04/12/17 12:00 Cefazolin Sodium (Ancef/Sterile Water 2 Gm/20 Ml) 2 gm in 20 mls @ 80 mls/hr IV PREOP NR PRN Reason: Protocol Stop: 04/12/17 23:00 Sodium Chloride (Nacl 0.9% 500 Ml) 500 mls @ 50 mls/hr IV DIRECT TRISTIN - Physical exam General appearance: no acute distress HEENT: Other (head and neck swelling) Lungs: Normal air movement - Brief post op/procedure progress note Date of procedure: 04/12/17 Pre-op diagnosis: SVC syndrome Post-op diagnosis: same Procedure: angioplasty of the cephalic arch, right subclavian vein, right innominate vein Anesthesia: MAC Surgeon: ROSA GR Estimated blood loss: minimal Condition: stable - Hospital course Hospital course: Tolerated procedure well. Can be discharged in 1-2 hrs. - Disposition Condition at discharge: Stable Disposition: DC-01 TO HOME OR SELFCARE - Discharge Diagnoses (1) SVC (superior vena cava obstruction) Status: Acute Short Stay Discharge Plan Activity: advance as tolerated Weight Bearing Status: Weight Bear as Tolerated Diet: advance as tolerated Wound: keep clean and dry Follow up with: SANKET SALAZAR MD [Primary Care Provider] - 7 Days
--- NOTE | 2017-04-12 10:56 | Operative Report ---
Operative Report Operative Report: EXAM: 1. Ultrasound-guided access of the right brachiocephalic AV fistula 2. Fistulogram 3. Angioplasty of the right innominate vein and right subclavian vein with an 8 mm 2 cm cutting angioplasty balloon 4. Angioplasty of the right innominate vein and right subclavian vein with a 12 mm x 6 cm angioplasty balloon 5. Angioplasty of the right cephalic arch with a 12 mm x 6 cm angioplasty balloon DATE: 04/12/17 STATISTICAL CONSULTANT: ROSA GR MD INDICATION: 66-year-old male with left-sided cardiac implanted pacemaker and defibrillator with right sided AV fistula and recurrent SVC syndrome MEDICATIONS: Please see nursing report for full details. DEVICES: 8 mm x 2 cm cutting angioplasty below 12 mm x 6 cm angioplasty balloon CONTRAST: Please see microbiology lab technician report for full details. PROCEDURE: The risks, benefits, and alternatives were discussed with the patient; written informed consent was obtained. Anesthesia was present for the procedure secondary to patient request from pain from the last procedure. They used MAC for anesthesia. The patient's right arm was prepped and draped in a sterile fashion. The right AV fistula was evaluated under ultrasound was patent. Under direct ultrasound guidance, the right mid arm cephalic vein was accessed with a 21- gauge micropuncture needle. 0.018 inch wire was passed and the needle. Needle was exchanged for transitional dilator. Wire was exchanged for 0.035 inch wire. Transitional dilator was exchanged for a short 7 Croatian sheath. Digital subtraction angiography was performed demonstrating 20% narrowing of the cephalic arch, 30% narrowing of the subclavian vein on the right side, and 40% narrowing of the right innominate vein. Multiple collaterals visualized extending into the central circulation. This was not as severely narrowed as noted on the prior venogram performed 1 week ago. The SVC was patent. 8 mm x 2 cm cutting angioplasty balloon was advanced over the V18 which was passed into the IVC with the assistance of a catheter. Angioplasty was performed for prolonged duration at burst pressure in the right subclavian vein , and right innominate vein. 12 mm x 6 cm angioplasty balloon was then used to perform angioplasty of the right innominate vein and right subclavian vein at three-minute inflations at burst pressure. The right cephalic arch was then treated with a 12 mm x 6 I'm your angioplasty balloon. Digital subtraction angiography demonstrates no residual narrowing with nonvisualization of the multiple collaterals extending into the central circulation. This is compatible with a good angiographic result. No extravasation or pseudoaneurysm. All wires and catheters were removed. Sheath was removed and the site was closed with 3-0 Vicryl suture. Patient tolerated the procedure well. No immediate postprocedural complication. FINDINGS: Please see procedure note above IMPRESSION: 1. Successful angioplasty of the central dialysis access (right subclavian vein and right innominate vein) 2. Successful angioplasty of the peripheral dialysis access (cephalic arch).
[2017-04-12 12:38] VITALS: BP 119/66
--- NOTE | 2017-04-17 12:57 | Vascular Lab Report ---
MISCELLANEOUS VESSEL IDENTIFICATION: The arteriovenous access was identified in the right upper extremity and under real-time ultrasound guidance was cannulated. IMPRESSION: Successful ultrasound guided cannulation of the arteriovenous access site.
== END 2017-04-12 12:50 | disposition home or self-care (01) ==
LOC: CATHLABREC 06:33
PROVIDERS: ATTEND Radiology Diagnostic Radiology
DX: I87.1 Compression of vein (principal); I13.2 Hypertensive heart and chronic kidney disease with heart failure and with stage 5 chronic kidney disease, or end stage renal disease; N18.6 End stage renal disease; I50.9 Heart failure, unspecified; I73.9 Peripheral vascular disease, unspecified; J44.9 Chronic obstructive pulmonary disease, unspecified; G47.30 Sleep apnea, unspecified; Z95.810 Presence of automatic (implantable) cardiac defibrillator; Z79.899 Other long term (current) drug therapy
CPT/HCPCS: 36415; 36902; 36907; 76937; 80048; 82962; 85025; C1725; C1751; C1769; C1894; J0690; J1170; J1644; J2250; J2370; J2704; J7030; Q9967

== ENCOUNTER 2017-09-27 11:49 | Day surgery (SDC) | payer MEDICARE ==
[2017-09-27] MEDS ORDERED: HEPARIN/NS 5000 UNIT/500ML(CATH LAB) 1,000 ML IR ONE (14:16)
[2017-09-27] MEDS ORDERED: ANCEF/STERILE WATER 2 GM/20 ML 2 GM/20 ML SYRINGE IV ONE (14:17)
[2017-09-27] MEDS ORDERED: XYLOCAINE 2% INFILTRATI ONE (14:17)
[2017-09-27] MEDS ORDERED: NACL 0.9% 500 ML 0 ML ONE (14:17)
[2017-09-27] MEDS ORDERED: NACL 0.9% 250ML 250 ML ONE (14:20)
[2017-09-27] MEDS: SUBLIMAZE ONE ×6 (14:58→15:21)
[2017-09-27] MEDS: VERSED ONE ×6 (14:58→15:21)
[2017-09-27] MEDS ORDERED: HEPARIN 10,000 UNITS/10 ML ONE (15:00)
--- NOTE | 2017-09-27 16:14 | Operative Report ---
Operative Report Operative Report: EXAM: 1. Ultrasound-guided access of the right brachiocephalic AV fistula 2. Fistulogram 3. Angioplasty of the right innominate vein and right subclavian vein with an 8 mm 2 cm cutting angioplasty balloon 4. Angioplasty of the right innominate vein and right subclavian vein with a 12 mm x 6 cm angioplasty balloon 5. Angioplasty of the right cephalic arch with a 12 mm x 6 cm angioplasty balloon DATE: 09/27/17 INFORMATICS MANAGER: ROSA GR MD INDICATION: 66-year-old male with left-sided cardiac implanted pacemaker and defibrillator with right sided AV fistula and recurrent SVC syndrome who presents with SVC syndrome. MEDICATIONS: Please see nursing report for full details. DEVICES: 8 mm x 2 cm cutting angioplasty below 12 mm x 6 cm angioplasty balloon CONTRAST: Please see medical lab director report for full details. PROCEDURE: The risks, benefits, and alternatives were discussed with the patient; written informed consent was obtained. The patient's right arm was prepped and draped in a sterile fashion. The right AV fistula was evaluated under ultrasound was patent. Under direct ultrasound guidance, the right mid arm cephalic vein was accessed with a 21- gauge micropuncture needle. 0.018 inch wire was passed and the needle. Needle was exchanged for transitional dilator. Wire was exchanged for 0.035 inch wire. Transitional dilator was exchanged for a short 7 Sinhala sheath. Digital subtraction angiography was performed demonstrating 20%-30% narrowing of the cephalic arch, 90% narrowing of the subclavian vein on the right side, and 95% narrowing of the right innominate vein. Multiple collaterals visualized extending into the central circulation. The SVC was patent. 8 mm x 2 cm cutting angioplasty balloon was advanced over the Spart[place] wire which was passed into the IVC with the assistance of a catheter. Angioplasty was performed for prolonged duration at burst pressure in the right subclavian vein, and right innominate vein. 12 mm x 6 cm angioplasty balloon was then used to perform angioplasty of the right innominate vein and right subclavian vein at three-minute inflations at burst pressure. The right cephalic arch was then treated with a 12 mm x 6 cm angioplasty balloon. Digital subtraction angiography demonstrates no residual narrowing with severely decreased visualization of the multiple collaterals extending into the central circulation. This is compatible with a good technical result. No extravasation or venous pseudoaneurysm. All wires and catheters were removed. Sheath was removed and the site was closed with 3-0 Vicryl suture. Patient tolerated the procedure well. No immediate postprocedural complication. FINDINGS: Please see procedure note above IMPRESSION: 1. Successful angioplasty of the central dialysis access (right subclavian vein and right innominate vein) 2. Successful angioplasty of the peripheral dialysis access (cephalic arch).
[2017-09-27 17:54] VITALS: BP 113/72
--- NOTE | 2017-09-27 17:54 | Short Stay Summary ---
Short Stay Documentation Date of service: 09/27/17 Narrative H&P: 67 year old male with ESRD with SVC syndrome who presents for recurrent swelling - History Principal diagnosis: SVC syndrome; AVF malfunction H&P: obtained from office Past Medical History: dialysis, heart failure Past Surgical History: Other (AV access creations, pacemakers) - Allergies and Medications Current Medications: Allergies No Known Allergies Allergy (Verified 06/16/15 08:44) Home Medications Medication Instructions Recorded Confirmed Last Taken Type Aspirin [Aspirin BABY CHEW TAB] 81 mg PO QDAY #30 tab.chew 04/08/17 09/27/17 Rx 81mg Cinacalcet HCl [Sensipar] 60 mg PO BID #60 tablet 04/08/17 09/27/17 09/26/17 Rx 60mg HYDROcodone/APAP 7.5-325 [[place] 1 each PO Q6HR PRN #20 tablet 04/08/17 09/27/17 08/06/17 Rx 7.5-325 mg TAB] 1 Ipratropium/Albuterol Sulfate 1 ampul IH Q6HR PRN #30 ampul.neb 04/08/1709/26/17 Rx [DUONEB *Not for PRN Use*] 1 Metoprolol [Lopressor TAB] 25 mg PO BID #60 tablet 04/08/17 09/27/17 09/26/17 Rx 25mg Sevelamer Carbonate [Renvela] 800 mg PO TID #90 tablet 04/08/17 09/27/17 Rx 800mg - Physical exam General appearance: no acute distress Lungs: Normal air movement Gastrointestinal: normal Extremities: normal temperature - Brief post op/procedure progress note Date of procedure: 09/27/17 Pre-op diagnosis: SVC syndrome Post-op diagnosis: same Procedure: Peripheral angioplasty and central angioplasty Anesthesia: local (w/ conscious sedation) Surgeon: ROSA GR Estimated blood loss: minimal Condition: stable - Hospital course Hospital course: Ready for discharge. - Disposition Condition at discharge: Stable Disposition: DC-01 TO HOME OR SELFCARE - Discharge Diagnoses (1) Malfunction of arteriovenous dialysis fistula Status: Acute (2) SVC (superior vena cava obstruction) Status: Acute Short Stay Discharge Plan Activity: advance as tolerated Weight Bearing Status: Weight Bear as Tolerated Diet: renal Wound: keep clean and dry Follow up with: SANKET SALAZAR MD [Primary Care Provider] - 7 Days Forms: AVG Arteriogram D/CInstruction
== END 2017-09-27 17:50 | disposition home or self-care (01) ==
LOC: CATHLABREC 11:49
PROVIDERS: ATTEND Radiology Diagnostic Radiology
DX: T82.858A Stenosis of other vascular prosthetic devices, implants and grafts, initial encounter (principal); I87.1 Compression of vein; I50.9 Heart failure, unspecified; N18.6 End stage renal disease; Z99.2 Dependence on renal dialysis; Z79.82 Long term (current) use of aspirin; Z95.810 Presence of automatic (implantable) cardiac defibrillator; Y83.2 Surgical operation with anastomosis, bypass or graft as the cause of abnormal reaction of the patient, or of later complication, without mention of misadventure at the time of the procedure
CPT/HCPCS: 36415; 36902; 36907; 84132; 99156; 99157; C1725; C1751; C1769; C1894; J0690; J1644; J2250; J3010; J7050; 36901; J7040; Q9967

== ENCOUNTER 2017-11-29 09:06 | Day surgery (SDC) | payer MEDICARE ==
[2017-11-29] MEDS ORDERED: D50W (25GM) Syringe IV ONE ×2 (11:49→11:51)
[2017-11-29] MEDS ORDERED: NACL 0.9% 500 ML 500 ML IV SCH (13:00)
[2017-11-29] MEDS ORDERED: VERSED ONE (13:43)
[2017-11-29] MEDS ORDERED: ANCEF/STERILE WATER 2 GM/20 ML 0 GM/0 ML SYRINGE IV ONE (13:48)
[2017-11-29] MEDS: SUBLIMAZE ONE ×2 (13:58→14:42)
[2017-11-29] MEDS ORDERED: XYLOCAINE 2% INFILTRATI ONE (13:58)
[2017-11-29] MEDS ORDERED: HEPARIN 10,000 UNITS/10 ML 5,000 UNIT in NACL 0.9% 500 ML 500 ML IR ONE ×2 (14:00→14:32)
--- NOTE | 2017-11-29 14:49 | Short Stay Summary ---
Short Stay Documentation Date of service: 11/29/17 - History Principal diagnosis: malfunctioning access Past Medical History: dialysis, ESRD Past Surgical History: Other (rue graft) Social history: , lives with family - Allergies and Medications Current Medications: Allergies No Known Allergies Allergy (Verified 06/16/15 08:44) Home Medications Medication Instructions Recorded Confirmed Last Taken Type Aspirin [Aspirin BABY CHEW TAB] 81 mg PO QDAY #30 tab.chew 04/08/17 09/27/1708/26 Rx 81mg Cinacalcet HCl [Sensipar] 60 mg PO BID #60 tablet 04/08/17 11/15/17 11/14/17 Rx 60mg HYDROcodone/APAP 7.5-325 [[place] 1 each PO Q6HR PRN #20 tablet 04/08/17 11/15/17 11/14/17 Rx 7.5-325 mg TAB] 1 tab Ipratropium/Albuterol Sulfate 1 ampul IH Q6HR PRN #30 ampul.neb 04/08/1711/14/17 Rx [DUONEB *Not for PRN Use*] 1 amp Sevelamer Carbonate [Renvela] 800 mg PO TID #90 tablet 04/08/17 11/15/17 Rx 800mg HYDROcodone/APAP 7.5-325 [[place] 1 each PO Q6HR PRN #25 tablet 11/15/17 Unknown Rx 7.5/325] Active Medications Sodium Chloride (Nacl 0.9% 500 Ml) 500 mls @ 50 mls/hr IV DIRECT TRISTIN Last Admin: 11/29/17 14:00 Dose: 60 mls - Physical exam General appearance: mild distress, obese Integumentary: no rash Lungs: Normal air movement Breasts: deferred Gastrointestinal: normal Male Genitourinary: deferred Rectal Exam: deferred Extremities: abnormal - Brief post op/procedure progress note Date of procedure: 11/29/17 Pre-op diagnosis: malfunctioning access Post-op diagnosis: same Procedure: central venoplasty Anesthesia: local Surgeon: ROSA BUENROSTRO Estimated blood loss: minimal Pathology: none Condition: stable - Disposition Condition at discharge: Good Disposition: DC-01 TO HOME OR SELFCARE Short Stay Discharge Plan Activity: advance as tolerated Weight Bearing Status: Weight Bear as Tolerated Diet: regular Wound: keep clean and dry, per your surgeon's advice Follow up with: SANKET SALAZAR MD [Primary Care Provider] - 7 Days
--- NOTE | 2017-11-29 14:53 | Operative Report ---
Operative Report Operative Report: Exam: Right upper extremity fistulogram, central venoplasty Clinical indication: Patient with a history of right arm swelling and no central venous stenosis Date: 11/29/2017 Procedure: Following an explanation of the risks, benefits and alternatives; written informed consent was obtained. The patient was brought to the injury graphic suite and placed in supine position on the examination table. A palpable thrill was present on the patient's right upper arm AV graft. The patient's right arm or is significantly swollen. His right upper arm was prepped and draped in the usual sterile fashion. 1% lidocaine was used for anesthesia. Under ultrasound guidance, the right upper arm AV graft was cannulated towards the venous outflow using a 7 cm 21-gauge needle. A 0.018 guidewire was advanced centrally. The needle was removed and a micro-sheath placed. The 0.018 guidewire was exchanged for a 0.035 guidewire and the micro-sheath exchanged for a 7 Greek vascular sheath. Contrast was injected through the sheath and imaging obtained at multiple locations. 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 A vertebral catheter was advanced over the guidewire and attempts to cannulate the vein were unsuccessful. The guidewire was advanced somewhat more distally. A 35 Trailblazer was exchanged for the vertebral catheter and together the Trailblazer catheter and guidewire were advanced into the IVC under fluoroscopy. Contrast was injected to document appropriate positioning. With the Trailblazer catheter and the IVC, th 035 guidewire was exchanged for an 014 catheter which was advanced into the IVC. The catheter was removed. Angioplasty of the stenosis was first performed using a 4 mm Nanocross balloon. The vertebral catheter was advanced over the guidewire and the guidewire exchanged for an 035 guidewire. Additional angioplasty was then performed using an 8 mm balloon and a 10 mm balloon and the innominate vein. Following venoplasty, a patent channel is present throughout the innominate vein however, there is residual 50-60% stenosis. At this point, the catheters, guidewires and she's were removed and hemostasis achieved using 4-0 Vicryl suture and manual compression. A sterile dressing was then applied. The patient tolerated the procedure well. There was no immediate post procedure complications. Sedation was not utilized secondary to patient's tenuous status. The patient received minimal fentanyl for analgesia. Continuous cardiopulmonary monitoring was utilized. Pressure: 1) Left lower extremity fistulogram demonstrating occlusion of the innominate vein. 2) Venoplasty of the innominate vein as described
[2017-11-29 15:58] VITALS: BP 127/58
== END 2017-11-29 16:15 | disposition home or self-care (01) ==
LOC: CATHLABREC 09:06
PROVIDERS: ATTEND Radiology Diagnostic Radiology
DX: I87.1 Compression of vein (principal); I13.2 Hypertensive heart and chronic kidney disease with heart failure and with stage 5 chronic kidney disease, or end stage renal disease; N18.6 End stage renal disease; I50.22 Chronic systolic (congestive) heart failure; J44.9 Chronic obstructive pulmonary disease, unspecified; I48.91 Unspecified atrial fibrillation; G47.30 Sleep apnea, unspecified; M17.0 Bilateral primary osteoarthritis of knee; F32.9 Major depressive disorder, single episode, unspecified; F41.9 Anxiety disorder, unspecified; T82.590A Other mechanical complication of surgically created arteriovenous fistula, initial encounter; Z99.2 Dependence on renal dialysis; Z82.49 Family history of ischemic heart disease and other diseases of the circulatory system; Z79.82 Long term (current) use of aspirin; Z79.899 Other long term (current) drug therapy; Z98.890 Other specified postprocedural states; Z86.2 Personal history of diseases of the blood and blood-forming organs and certain disorders involving the immune mechanism; Y83.8 Other surgical procedures as the cause of abnormal reaction of the patient, or of later complication, without mention of misadventure at the time of the procedure; Y92.89 Other specified places as the place of occurrence of the external cause
CPT/HCPCS: 36415; 36902; 76937; 82962; 84132; 96374; C1725; C1751; C1769; C1894; J1644; J3010; J7040; J0690; J2250; Q9967

== ENCOUNTER 2017-12-02 20:07 | Inpatient (IN) | payer MEDICARE ==
[2017-12-02] MEDS ORDERED: XYLOCAINE 1%/ EPI 1:100,000 INFILTRATI ONE (20:31)
--- NOTE | 2017-12-02 20:49 | Emergency Department Report ---
HPI - General Chief Complaint: Wound/Laceration Time Seen by Provider: 12/02/17 20:20 - HPI HPI: Room 5 The patient is a 67-year-old male presenting with a chief complaint of bleeding from vein and chest. The patient states his symptoms began this evening while at rest spontaneously began to bleed from a vein in his chest. Patient denies any preceding trauma. The patient states he has a history of end-stage renal disease and was last dialyzed 11/28/2017. Patient denies any other complaints Location: Chest Duration: Just prior to arrival Quality: Painless Severity: Moderate Modifying factors: [see above] Context: [see above] Mode of transportation: [not driving] ED Past Medical Hx - Past Medical History Hx Hypertension: Yes (2006) Hx Congestive Heart Failure: Yes (2006) Hx Deep Vein Thrombosis: Yes (LEFT LEG 2014) Hx Renal Disease: Yes (Dialysis T-T-S) Hx Arthritis: Yes (B/L knees) Hx COPD: Yes - Surgical History Hx Pacemaker: Yes Hx Internal Defibrillator: Yes (2013. HAD CHECKED 3 MONTHS AGO. FOR CHF) Additional Surgical History: fistula to right upper arm placed 3 wks - Family History Family history: no significant - Social History Smoking Status: Never Smoker Substance Use Type: None - Medications Home Medications: Home Medications Medication Instructions Recorded Confirmed Last Taken Type Aspirin [Aspirin BABY CHEW TAB] 81 mg PO QDAY #30 tab.chew 04/08/17 09/27/1708/26 Rx 81mg Cinacalcet HCl [Sensipar] 60 mg PO BID #60 tablet 04/08/17 11/15/17 11/14/17 Rx 60mg HYDROcodone/APAP 7.5-325 [[place] 1 each PO Q6HR PRN #20 tablet 04/08/17 11/15/17 11/14/17 Rx 7.5-325 mg TAB] 1 tab Ipratropium/Albuterol Sulfate 1 ampul IH Q6HR PRN #30 ampul.neb 04/08/1711/14/17 Rx [DUONEB *Not for PRN Use*] 1 amp Sevelamer Carbonate [Renvela] 800 mg PO TID #90 tablet 04/08/17 11/15/17 Rx 800mg HYDROcodone/APAP 7.5-325 [[place] 1 each PO Q6HR PRN #25 tablet 11/15/17 Unknown Rx 7.5/325] ED Review of Systems ROS: Stated complaint: ENGORGED VEIN IN CHEST(EXTERNAL) Other details as noted in HPI Constitutional: no symptoms reported Eyes: denies: eye pain ENT: denies: throat pain Respiratory: no symptoms reported Cardiovascular: denies: chest pain Endocrine: no symptoms reported Gastrointestinal: denies: abdominal pain Genitourinary: denies: dysuria Musculoskeletal: denies: back pain Neurological: denies: headache Hematological/Lymphatic: other (bleeding from vein on chest) Physical Exam - Physical Exam Physical Exam: GENERAL: The patient is well-developed well-nourished male lying on stretcher with EMS holding pressure to chest bleeding site. [] HEENT: Normocephalic. Atraumatic. Extraocular motions are intact. Patient has moist mucous membranes. NECK: Supple. Trachea midline CHEST/LUNGS: There is a dilated vein to the upper chest that is actively bleeding.. There is no respiratory distress noted. HEART/CARDIOVASCULAR: Regular. There is no tachycardia. ABDOMEN: There is no abdominal distention. SKIN: TThere is a dilated vein to the upper chest that is actively bleeding. There is no diaphoresis. NEURO: The patient is awake, alert, and oriented. The patient is cooperative. The patient has normal speech MUSCULOSKELETAL: There is no evidence of acute injury. ED Course - Reevaluation(s) Reevaluation #1: 12/02/17 21:12 Patient asymptomatic. Hemostatic dressing in place and it appears to be resolution of bleeding. There is no significant bleed through - Consultations Consultation #1: 12/02/17 21:34 Nephrology paged 12/02/17 21:[address] Miles-agrees with Shay - Laceration /Wound Repair Upper Chest Wound Location: chest Wound Length (cm): 0 (punctate lesion) Wound's Depth, Shape: superficial Betadine Prep?: Yes Anesthesia: Lidocaine w/ Epi Volume Anesthetic (ccs): 3 Suture Size/Type: 4:0, nylon Number of Sutures: 1 ([id number]) ED Medical Decision Making - Lab Data Result diagrams: 12/02/17 20:40 12/02/17 20:40 Laboratory Tests 12/02/17 12/02/17 12/02/17 20:40 20:40 20:40 WBC 3.6 L RBC 3.87 Hgb 12.4 Hct 37.0 MCV 96 H MCH 32 MCHC 34 RDW 17.5 H Plt Count 114 L Lymph % (Auto) 9.6 L [place] % (Auto) 12.0 H Eos % (Auto) 3.8 Baso % (Auto) 1.2 Lymph # 0.4 L [place] # 0.4 Eos # 0.1 Baso # 0.0 Seg Neutrophils % 73.4 H Seg Neutrophils # 2.7 PT 14.2 INR 1.05 APTT 35.0 Sodium 133 L Potassium 5.6 H Chloride 89.5 L Carbon Dioxide 27 Anion Gap 22 BUN 33 H Creatinine 8.3 H Estimated GFR 7 BUN/Creatinine Ratio 4 Glucose 77 Calcium 9.2 Blood Type Antibody Screen 12/02/17 20:41 WBC RBC Hgb Hct MCV MCH MCHC RDW Plt Count Lymph % (Auto) [place] % (Auto) Eos % (Auto) Baso % (Auto) Lymph # [place] # Eos # Baso # Seg Neutrophils % Seg Neutrophils # PT INR APTT Sodium Potassium Chloride Carbon Dioxide Anion Gap BUN Creatinine Estimated GFR BUN/Creatinine Ratio Glucose Calcium Blood Type A POSITIVE Antibody Screen Negative - Differential Diagnosis bleeding, end-stage renal disease Critical care attestation.: If time is entered above; I have spent that time in minutes in the direct care of this critically ill patient, excluding procedure time. ED Disposition Clinical Impression: Bleeding, End stage renal disease, Hyperkalemia Disposition: OP ADMIT IP TO THIS HOSP Is pt being admited?: Yes Does the pt Need Aspirin: No Condition: Fair Referrals: PRIMARY CARE, [Primary Care Provider] - 3-5 Days Time of Disposition: 21:39 (hospitalist paged (Dr Woodward))
[2017-12-02 20:51] LABS: Basophils % (Auto) 1.2 % (0.0-1.8); Eosinophils # (Auto) 0.1 K/mm3 (0.0-0.4); Eosinophils % (Auto) 3.8 % (0.0-4.3); Hemoglobin 12.4 gm/dl (11.8-15.2); Lymphocytes # (Auto) 0.4 K/mm3 (1.2-5.4); Lymphocytes % (Auto) 9.6 % (13.4-35.0); Mean Corpuscular HGB Conc 34 % (32-34); Mean Corpuscular Hemoglobin 32 pg (28-32); Mean Corpuscular Volume 96 fl (84-94); Monocytes # (Auto) 0.4 K/mm3 (0.0-0.8); Platelet Count 114 K/mm3 (140-440); Red Blood Count 3.87 M/mm3 (3.65-5.03); Red Cell Distribution Width 17.5 % (13.2-15.2)
[2017-12-02] MEDS ORDERED: XYLOCAINE 1%/ EPI 1:100,000 INFILTRATI NR (21:00)
[2017-12-02 21:01] LABS: INR 1.05 (0.87-1.13)
[2017-12-02 21:10] LABS: Calcium 9.2 mg/dL (8.4-10.2)
[2017-12-02] MEDS ORDERED: CALCIUM GLUCONATE 1,000 MG in NACL 0.9% 100 ML IV ONE (21:21)
[2017-12-02] MEDS ORDERED: NACL 0.9% IV ONE (21:30)
[2017-12-02] MEDS ORDERED: DDAVP IV ONE (21:30)
[2017-12-02] MEDS ORDERED: KIONEX PO ONE (21:38)
[2017-12-02] MEDS ORDERED: ZOFRAN IV PRN (23:27)
[2017-12-03] MEDS: NORCO 7.5/325 PO PRN ×2 (00:31→21:58)
[2017-12-03] MEDS ORDERED: PROVENTIL IH PRN (01:12)
--- NOTE | 2017-12-03 05:48 | History and Physical Report ---
CHIEF COMPLAINT: Spontaneous bleeding from superficial veins in the chest wall. HISTORY OF PRESENT ILLNESS: The patient is a 67-year-old male with history of end-stage renal disease, on dialysis, who was resting at home and suddenly noticed bleeding from some superficial vein in the anterior chest wall. There was no history of trauma and no history of any insect or animal bite or scratching of the skin prior to the bleeding. There was also no history of shortness of breath, chest pain, nausea or vomiting. The patient presented to the Emergency Room. PAST MEDICAL HISTORY: Pertinent for hypertension, congestive heart failure, deep vein thrombosis, end-stage renal disease on dialysis on Tuesdays, , and Saturdays and also with past history of COPD and arthritis. PAST SURGICAL HISTORY: Pertinent for internal defibrillator placement and fistula placement in the right upper arm for dialysis. FAMILY HISTORY: Noncontributory. SOCIAL HISTORY: The patient does not smoke, does not drink alcohol and does not use illicit drugs. MEDICATIONS: The patient is on aspirin 81 mg daily, cinacalcet or Sensipar 60 mg by mouth twice daily, [place] 7.5/325 mg 1 by mouth every 6 hours as needed and DuoNeb nebulizer q.6 hours as needed for shortness of breath, Renvela 800 mg by mouth 3 times daily, [place] 7.5/325 mg 1 by mouth every 6 hours as needed for pain. ALLERGIES: There are no known drug allergies. REVIEW OF SYSTEMS: CONSTITUTIONAL: There is no fever, no chills, no diaphoresis. HEENT: There is no headache or sore throat. CARDIOVASCULAR SYSTEM: There is no chest pain or orthopnea. RESPIRATORY: There is no shortness of breath or cough. GASTROINTESTINAL SYSTEM: There is no nausea, no vomiting, no diarrhea, constipation or abdominal pain. NEUROLOGICAL SYSTEM: There is no numbness, no dizziness, no altered mental status. MUSCULOSKELETAL SYSTEM: There is no joint pain or joint swelling. DERMATOLOGICAL SYSTEM: There is bleeding from superficial veins on the anterior chest wall. GENITOURINARY: There is dysuria, but no hematuria or flank pain. PERTINENT LABORATORY AND IMAGING STUDIES: The patient had CBC done with low white count of 3.6, normal hemoglobin, normal hematocrit, low platelet count of 114 and CBC differential shows slightly elevated monocyte count of 12% and a slightly elevated segmented neutrophil of 73.4%. Coagulation studies were unremarkable. Chemistry shows low sodium of 133, slightly elevated potassium level of 5.6 and low chloride of 89.5 with elevated BUN of 33 and high creatinine of 3.3 consistent with the patient's end-stage renal disease, on dialysis. IMAGING STUDIES: No imaging studies were done at this time. DIAGNOSES: 1. Spontaneous superficial vein bleeding. 2. End-stage renal disease, on dialysis. 3. Hyperkalemia or elevated potassium level. PLAN OF ACTION: 1. The patient will be admitted to medical surgical floor. 2. The patient will continue Nephrology consult with Dr. Rogelio Miles for management of end-stage renal disease with hyperkalemia. 3. The patient will have basic metabolic panel done this morning and will be on p.r.n. medications like Tylenol 650 mg by mouth every 4 hours for fever and headache as well as Zofran 4 mg IV every 8 hours for nausea and vomiting. 4. The patient will be on home medications as shown in the medication reconciliation section. JOB# [id number] OCN/NTS YUN
[2017-12-03 06:48] LABS: Calcium 8.8 mg/dL (8.4-10.2)
[2017-12-03] MEDS: DUONEB *Not for PRN Use IH SCH ×4 (07:11→20:20)
[2017-12-03] MEDS ORDERED: NACL 0.9% 100 ML IV PRN (08:00)
[2017-12-03] MEDS: RENVELA PO SCH ×3 (08:45→18:41)
--- NOTE | 2017-12-03 08:56 | Consultation ---
History of Present Illness - Reason for Consult end stage renal disease, hyperkalemia - History of Present Illness Patient is a pleasant 67 y/o [place] male with h/o ESRD, well known to our group, with a h/o also of central vein stenosis requiring intervention, who presented to the ED secondary to complaints of superficial bleeding from his anterior chest wall. He deneis any history of trauma. The bleeding has seemed to have stopped at this time. He has no acute complaints. He is on a TTS dialysis schedule, with his last HD session done Saturday. Patient underwent a RUE fistulogram and central venoplasty. Past History Past Medical History: COPD, DVT, ESRD, heart failure, hypertension, renal failure Past Surgical History: Other (LUE AVG , angioplasties of central veins, ) Social history: no significant social history, smoking (denies), alcohol abuse ( denies), prescription drug abuse (denies), IV drug use (denies) Family history: no significant family history Medications and Allergies Allergies Allergy/AdvReac Type Severity Reaction Status Date / Time No Known Allergies Allergy Verified 06/16/15 08:44 Home Medications Medication Instructions Recorded Confirmed Last Taken Type Aspirin [Aspirin BABY CHEW TAB] 81 mg PO QDAY #30 tab.chew 04/08/17 12/02/1708/26 Rx 81mg Cinacalcet HCl [Sensipar] 60 mg PO BID #60 tablet 04/08/17 12/02/17 11/14/17 Rx 60mg HYDROcodone/APAP 7.5-325 [[place] 1 each PO Q6HR PRN #20 tablet 04/08/17 12/02/17 11/14/17 Rx 7.5-325 mg TAB] 1 tab Ipratropium/Albuterol Sulfate 1 ampul IH Q6HR PRN #30 ampul.neb 04/08/1711/14/17 Rx [DUONEB *Not for PRN Use*] 1 amp Sevelamer Carbonate [Renvela] 800 mg PO TID #90 tablet 04/08/17 12/02/17 Rx 800mg HYDROcodone/APAP 7.5-325 [[place] 1 each PO Q6HR PRN #25 tablet 11/15/17 12/02/17 Unknown Rx 7.5/325] Active Meds: Active Medications Acetaminophen (Tylenol) 650 mg PO Q4H PRN PRN Reason: Fever >101 Acetaminophen/Hydrocodone Bitart ([place] 7.5/325) 1 each PO Q6H PRN PRN Reason: Pain, Moderate (4-6) Last Admin: 12/03/17 00:31 Dose: 1 each Albuterol (Proventil) 2.5 mg IH Q3HRT PRN PRN Reason: Shortness Of Breath Albuterol/Ipratropium (Duoneb *Not For Prn Use*) 1 ampul IH Q6HRT TRISTIN Last Admin: 12/03/17 07:26 Dose: Not Given Aspirin (Baby Aspirin) 81 mg PO QDAY TRISTIN Cinacalcet (Sensipar) 60 mg PO BID [facility] Sodium Chloride (Nacl 0.9%) 100 mls @ 999 mls/hr IV REINA PRN PRN Reason: Hypotension Ondansetron HCl (Zofran) 4 mg IV Q8H PRN PRN Reason: Nausea And Vomiting Pneumococcal Polyvalent Vaccine (Pneumovax 23) 0.5 ml IM .ONCE ONE Stop: 12/03/17 12:01 Sevelamer Carbonate (Renvela) 800 mg PO TIDWM [facility] Review of Systems All systems: negative Integumentary: other (superficial bleeding from anterior chest wall site. ) Exam - Vital Signs Vital signs: Vital Signs BP Pulse Ox 115/42 99 12/02/17 21:00 12/02/17 21:00 - General Appearance General appearance: well-developed, appears stated age EENT: ATNC, PERRL Neck: Present: neck supple, trachea midline Respiratory: Clear to Ascultation, Normal Exam Heart: regular, S1S2 Gastrointestinal: Present: normal, normoactive bowel sounds Integumentary: no rash, warm and dry Neurologic: no focal deficit, no asterixis Musculoskeletal: Present: other (-edema of lower extremities ) Psychiatric: mood/affect appropriate, cooperative Results - Lab Results 12/02/17 20:40 12/03/17 05:46 Most recent lab results Calcium 8.8 mg/dL (8.4-10.2) 12/03/17 05:46 Assessment and Plan - Patient Problems (1) ESRD (end stage renal disease) Current Visit: Yes Status: Chronic Plan to address problem: Plan for HD today per his outpatient TTS schedule. (2) Hyperkalemia Current Visit: Yes Status: Acute Plan to address problem: Will dialyze today on a 2 K bath. Please ensure that patient is on a renal low K diet. (3) Bleeding Current Visit: Yes Status: Acute Plan to address problem: Bleeding has stopped at this time. Will monitor. (4) Secondary hyperparathyroidism Current Visit: No Status: Acute Plan to address problem: Favor to restart his home regimen of phos binders.
--- NOTE | 2017-12-03 09:31 | Progress Note ---
Assessment and Plan Assessment and plan: --Hyperkalemia; nephrology following Hemodialysis today --End-stage renal disease; HD per schedule Continue current management, nephrology following --Mild hyponatremia; secondary to fluid overload Continue hemodialysis per schedule, closely monitor electrolytes --DVT prophylaxis; heparin renal dose Renal Consult and recommendations noted and appreciated Closely monitor the patient and adjust management as needed History Interval history: Patient seen and examined medical records reviewed No new events reported by nursing On hemodialysis per schedule Alert awake oriented 3 vital signs reviewed Hospitalist Physical - Constitutional Vitals: Temp Pulse Resp BP Pulse Ox 97.3 F L 96 H 18 104/33 96 12/03/17 07:37 12/03/17 07:37 12/03/17 07:37 12/03/17 07:37 12/03/17 07:37 General appearance: Present: no acute distress, well-nourished - EENT Eyes: Present: PERRL, EOM intact - Neck Neck: Present: supple, normal ROM - Respiratory Respiratory effort: normal Respiratory: bilateral: diminished, rales, negative: rhonchi, wheezing - Cardiovascular Rhythm: regular Heart Sounds: Present: S1 & S2 - Extremities Extremities: no ischemia, No edema - Abdominal General gastrointestinal: soft, non-tender, non-distended, normal bowel sounds - Integumentary Integumentary: Present: clear, warm - Psychiatric Psychiatric: appropriate mood/affect, cooperative - Neurologic Neurologic: CNII-XII intact, moves all extremities Results - Labs CBC & Chem 7: 12/04/17 05:34 12/04/17 05:34 Labs: Laboratory Last Values WBC 3.6 K/mm3 (4.5-11.0) L 12/02/17 20:40 RBC 3.87 M/mm3 (3.65-5.03) 12/02/17 20:40 Hgb 12.4 gm/dl (11.8-15.2) 12/02/17 20:40 Hct 37.0 % (35.5-45.6) 12/02/17 20:40 MCV 96 fl (84-94) H 12/02/17 20:40 MCH 32 pg (28-32) 12/02/17 20:40 MCHC 34 % (32-34) 12/02/17 20:40 RDW 17.5 % (13.2-15.2) H 12/02/17 20:40 Plt Count 114 K/mm3 (140-440) L 12/02/17 20:40 Lymph % (Auto) 9.6 % (13.4-35.0) L 12/02/17 20:40 [place] % (Auto) 12.0 % (0.0-7.3) H 12/02/17 20:40 Eos % (Auto) 3.8 % (0.0-4.3) 12/02/17 20:40 Baso % (Auto) 1.2 % (0.0-1.8) 12/02/17 20:40 Lymph # 0.4 K/mm3 (1.2-5.4) L 12/02/17 20:40 [place] # 0.4 K/mm3 (0.0-0.8) 12/02/17 20:40 Eos # 0.1 K/mm3 (0.0-0.4) 12/02/17 20:40 Baso # 0.0 K/mm3 (0.0-0.1) 12/02/17 20:40 Seg Neutrophils % 73.4 % (40.0-70.0) H 12/02/17 20:40 Seg Neutrophils # 2.7 K/mm3 (1.8-7.7) 12/02/17 20:40 PT 14.2 Sec. (12.2-14.9) 12/02/17 20:40 INR 1.05 (0.87-1.13) 12/02/17 20:40 APTT 35.0 Sec. (24.2-36.6) 12/02/17 20:40 Sodium 131 mmol/L (137-145) L 12/03/17 05:46 Potassium 5.4 mmol/L (3.6-5.0) H 12/03/17 05:46 Chloride 88.8 mmol/L (98-107) L 12/03/17 05:46 Carbon Dioxide 25 mmol/L (22-30) 12/03/17 05:46 Anion Gap 23 mmol/L 12/03/17 05:46 BUN 34 mg/dL (9-20) H 12/03/17 05:46 Creatinine 9.3 mg/dL (0.8-1.5) H 12/03/17 05:46 Estimated GFR 6 ml/min 12/03/17 05:46 BUN/Creatinine Ratio 4 % 12/03/17 05:46 Glucose 82 mg/dL (75-100) 12/03/17 05:46 Calcium 8.8 mg/dL (8.4-10.2) 12/03/17 05:46 Blood Type A POSITIVE 12/02/17 20:41 Antibody Screen Negative 12/02/17 20:41
[2017-12-03] MEDS: SENSIPAR PO SCH ×2 (10:38→21:58)
[2017-12-03] MEDS: BABY ASPIRIN PO SCH (10:38)
[2017-12-03] MEDS: HEPARIN SUB-Q SCH ×2 (10:38→21:58)
[2017-12-03] MEDS ORDERED: AFLURIA QUAD 2018-2019 SYRINGE IM ONE (12:00)
[2017-12-03] MEDS ORDERED: PNEUMOVAX 23 IM ONE (12:00)
[2017-12-03] MEDS ORDERED: NACL 0.9 (PRIMING MACHINE ONLY DIALYSIS) MC ONE (14:34)
[2017-12-04 06:18] LABS: Basophils % (Auto) 0.9 % (0.0-1.8); Eosinophils # (Auto) 0.1 K/mm3 (0.0-0.4); Eosinophils % (Auto) 2.9 % (0.0-4.3); Hematocrit 34.4 % (35.5-45.6); Hemoglobin 11.3 gm/dl (11.8-15.2); Lymphocytes # (Auto) 0.3 K/mm3 (1.2-5.4); Lymphocytes % (Auto) 8.8 % (13.4-35.0); Mean Corpuscular HGB Conc 33 % (32-34); Mean Corpuscular Hemoglobin 32 pg (28-32); Mean Corpuscular Volume 98 fl (84-94); Monocytes # (Auto) 0.4 K/mm3 (0.0-0.8); Monocytes % (Auto) 13.6 % (0.0-7.3); Red Blood Count 3.53 M/mm3 (3.65-5.03); Red Cell Distribution Width 17.9 % (13.2-15.2)
[2017-12-04 06:27] LABS: Platelet Count 90 K/mm3 (140-440)
[2017-12-04 06:42] LABS: Calcium 8.9 mg/dL (8.4-10.2)
--- NOTE | 2017-12-04 07:07 | Progress Note ---
Assessment and Plan - Patient Problems (1) ESRD (end stage renal disease) Current Visit: Yes Status: Chronic Plan to address problem: Had HD yesterday per his TTS schedule. No acute HD needs today. He has procedure scheduled with vascular for intervention on his [facility] tommorow. (2) Hyperkalemia Current Visit: Yes Status: Acute Plan to address problem: Resolved with HD. Will continue to monitor. (3) Bleeding Current Visit: Yes Status: Acute Plan to address problem: Bleeding has stopped at this time. Will monitor. (4) Secondary hyperparathyroidism Current Visit: No Status: Acute Plan to address problem: Favor to restart his home regimen of phos binders. Subjective Date of service: 12/04/17 Interval history: Tolerated HD yesterday without any issues with removal of 2L UF. No acute complaints at this time. Bleeding from superficial anterior chest wall site has stopped. Objective - Vital Signs Vital signs: Vital Signs - 12hr 12/03/17 12/03/17 12/03/17 20:17 20:20 21:58 Temperature 97.8 F Pulse Rate 101 H Pulse Rate [ 86 Anterior Bilateral Throughout] Pulse Rate [ Apical] Pulse Rate [ Left Dorsalis Pedis] Pulse Rate [ Right Dorsalis Pedis] Respiratory 20 20 Rate Respiratory 18 Rate [Anterior Bilateral Throughout] Blood Pressure 112/43 O2 Sat by Pulse 95 Oximetry 12/03/17 12/03/17 12/04/17 22:00 22:58 02:28 Temperature 98.0 F Pulse Rate 101 H 101 H Pulse Rate [ Anterior Bilateral Throughout] Pulse Rate [ 82 Apical] Pulse Rate [ 80 Left Dorsalis Pedis] Pulse Rate [ 80 Right Dorsalis Pedis] Respiratory 21 18 Rate Respiratory Rate [Anterior Bilateral Throughout] Blood Pressure 81/65 O2 Sat by Pulse 96 93 Oximetry - General Appearance General appearance: well-developed, well-nourished, appears stated age EENT: ATNC, PERRL Neck: no JVD, no thyromegaly, supple Respiratory: Present: Clear to Ascultation, Normal Exam Cardiology: regular, S1S2 Gastrointestinal: normal Integumentary: no rash, warm and dry Neurologic: no focal deficit, no asterixis Musculoskeletal: other (no edema of b/l LE; ) Psychiatric: mood/affect appropriate - Lab 12/04/17 05:34 12/04/17 05:34 Most recent lab results Calcium 8.9 mg/dL (8.4-10.2) 12/04/17 05:34 - Allied health notes Allied health notes reviewed: nursing
[2017-12-04] MEDS: DUONEB *Not for PRN Use IH SCH ×4 (08:04→20:06)
[2017-12-04] MEDS: RENVELA PO SCH ×3 (08:30→16:57)
[2017-12-04] MEDS: HEPARIN SUB-Q SCH ×2 (09:30→22:09)
[2017-12-04] MEDS: SENSIPAR PO SCH ×2 (09:30→22:08)
[2017-12-04] MEDS: BABY ASPIRIN PO SCH (09:30)
--- NOTE | 2017-12-04 12:25 | Progress Note ---
Assessment and Plan Assessment and plan: --Hyperkalemia; resolved --End-stage renal disease; HD per schedule Continue current management, nephrology following --Mild hyponatremia; secondary to fluid overload Continue hemodialysis per schedule, closely monitor electrolytes --DVT prophylaxis; heparin renal dose Patient is scheduled for outpatient vascular procedure for tomorrow We will consult vascular Dr. Trent , Place patient nothing by mouth after midnight Case reviewed with the patient and his nurse History Interval history: Patient seen and examined medical records reviewed No new events reported by nursing staff Patient is on hemodialysis per schedule Alert awake vital signs reviewed Vital signs stable Hospitalist Physical - Constitutional Vitals: Temp Pulse Resp BP Pulse Ox 97.7 F 103 H 19 106/60 94 12/04/17 07:48 12/04/17 08:06 12/04/17 08:06 12/04/17 07:48 12/04/17 08:07 General appearance: Present: no acute distress, well-nourished - EENT Eyes: Present: PERRL, EOM intact - Neck Neck: Present: supple, normal ROM - Respiratory Respiratory effort: normal Respiratory: bilateral: diminished, rales, negative: rhonchi, wheezing - Cardiovascular Rhythm: regular Heart Sounds: Present: S1 & S2 - Extremities Extremities: no ischemia, No edema - Abdominal General gastrointestinal: soft, non-tender, non-distended, normal bowel sounds - Integumentary Integumentary: Present: clear, warm - Psychiatric Psychiatric: appropriate mood/affect, cooperative - Neurologic Neurologic: CNII-XII intact, moves all extremities Results - Labs CBC & Chem 7: 12/04/17 05:34 12/04/17 05:34 Labs: Laboratory Last Values WBC 2.9 K/mm3 (4.5-11.0) L 12/04/17 05:34 RBC 3.53 M/mm3 (3.65-5.03) L 12/04/17 05:34 Hgb 11.3 gm/dl (11.8-15.2) L 12/04/17 05:34 Hct 34.4 % (35.5-45.6) L 12/04/17 05:34 MCV 98 fl (84-94) H 12/04/17 05:34 MCH 32 pg (28-32) 12/04/17 05:34 MCHC 33 % (32-34) 12/04/17 05:34 RDW 17.9 % (13.2-15.2) H 12/04/17 05:34 Plt Count 90 K/mm3 (140-440) L 12/04/17 05:34 Lymph % (Auto) 8.8 % (13.4-35.0) L 12/04/17 05:34 [place] % (Auto) 13.6 % (0.0-7.3) H 12/04/17 05:34 Eos % (Auto) 2.9 % (0.0-4.3) 12/04/17 05:34 Baso % (Auto) 0.9 % (0.0-1.8) 12/04/17 05:34 Lymph # 0.3 K/mm3 (1.2-5.4) L 12/04/17 05:34 [place] # 0.4 K/mm3 (0.0-0.8) 12/04/17 05:34 Eos # 0.1 K/mm3 (0.0-0.4) 12/04/17 05:34 Baso # 0.0 K/mm3 (0.0-0.1) 12/04/17 05:34 Seg Neutrophils % 73.8 % (40.0-70.0) H 12/04/17 05:34 Seg Neutrophils # 2.1 K/mm3 (1.8-7.7) 12/04/17 05:34 PT 14.2 Sec. (12.2-14.9) 12/02/17 20:40 INR 1.05 (0.87-1.13) 12/02/17 20:40 APTT 35.0 Sec. (24.2-36.6) 12/02/17 20:40 Sodium 140 mmol/L (137-145) D 12/04/17 05:34 Potassium 4.8 mmol/L (3.6-5.0) 12/04/17 05:34 Chloride 93.6 mmol/L (98-107) L 12/04/17 05:34 Carbon Dioxide 28 mmol/L (22-30) 12/04/17 05:34 Anion Gap 23 mmol/L 12/04/17 05:34 BUN 24 mg/dL (9-20) H 12/04/17 05:34 Creatinine 6.8 mg/dL (0.8-1.5) H 12/04/17 05:34 Estimated GFR 8 ml/min 12/04/17 05:34 BUN/Creatinine Ratio 4 % 12/04/17 05:34 Glucose 78 mg/dL (75-100) 12/04/17 05:34 Calcium 8.9 mg/dL (8.4-10.2) 12/04/17 05:34 Blood Type A POSITIVE 12/02/17 20:41 Antibody Screen Negative 12/02/17 20:41
[2017-12-04] MEDS: TYLENOL PO PRN (12:29)
[2017-12-05] MEDS: DUONEB *Not for PRN Use IH SCH ×4 (04:12→20:36)
--- NOTE | 2017-12-05 06:50 | Progress Note ---
Assessment and Plan - Patient Problems (1) ESRD (end stage renal disease) Current Visit: Yes Status: Chronic Plan to address problem: For HD today per his TTS schedule. He is also NPO for vascular procedure that he had scheduled earlier for today. (2) Hyperkalemia Current Visit: Yes Status: Acute Plan to address problem: Resolved with HD. Will continue to monitor. (3) Bleeding Current Visit: Yes Status: Acute Plan to address problem: Bleeding has stopped at this time. Will monitor. (4) Secondary hyperparathyroidism Current Visit: No Status: Acute Plan to address problem: Restarted his home regimen of phos binders. Subjective Date of service: 12/05/17 Interval history: No acute issues overnight. He has been NPO after midnight for vascular procedure today. He is also due for his HD session. Objective - Vital Signs Vital signs: Vital Signs - 12hr 12/04/17 12/04/17 12/04/17 19:27 20:00 20:09 Temperature 97.5 F L Pulse Rate 96 H Pulse Rate [ 90 Anterior Bilateral Throughout] Pulse Rate [ Apical] Pulse Rate [ Left Dorsalis Pedis] Pulse Rate [ Right Dorsalis Pedis] Respiratory 20 Rate Respiratory 20 Rate [Anterior Bilateral Throughout] Blood Pressure 91/35 O2 Sat by Pulse 96 96 Oximetry 12/04/17 12/04/17 12/05/17 20:10 22:00 03:02 Temperature 97.4 F L Pulse Rate 96 H 105 H Pulse Rate [ 92 H Anterior Bilateral Throughout] Pulse Rate [ 82 Apical] Pulse Rate [ 80 Left Dorsalis Pedis] Pulse Rate [ 80 Right Dorsalis Pedis] Respiratory 18 20 Rate Respiratory 18 Rate [Anterior Bilateral Throughout] Blood Pressure 90/35 O2 Sat by Pulse 98 96 Oximetry - General Appearance General appearance: well-developed, well-nourished, appears stated age EENT: ATNC, PERRL Neck: no JVD, no thyromegaly, supple Respiratory: Present: Clear to Ascultation Cardiology: regular, S1S2 Gastrointestinal: normal, normoactive bowel sounds Integumentary: warm and dry Neurologic: no focal deficit, no asterixis Musculoskeletal: other (-edema of the lower extremities. ) Psychiatric: mood/affect appropriate, cooperative - Lab 12/04/17 05:34 12/04/17 05:34 Most recent lab results Calcium 8.9 mg/dL (8.4-10.2) 12/04/17 05:34 - Allied health notes Allied health notes reviewed: nursing
[2017-12-05 07:12] LABS: Basophils % (Auto) 0.8 % (0.0-1.8); Eosinophils # (Auto) 0.1 K/mm3 (0.0-0.4); Eosinophils % (Auto) 2.4 % (0.0-4.3); Hematocrit 31.9 % (35.5-45.6); Hemoglobin 10.8 gm/dl (11.8-15.2); Lymphocytes # (Auto) 0.2 K/mm3 (1.2-5.4); Lymphocytes % (Auto) 4.6 % (13.4-35.0); Mean Corpuscular HGB Conc 34 % (32-34); Mean Corpuscular Hemoglobin 32 pg (28-32); Mean Corpuscular Volume 96 fl (84-94); Monocytes # (Auto) 0.4 K/mm3 (0.0-0.8); Monocytes % (Auto) 8.3 % (0.0-7.3); Red Blood Count 3.32 M/mm3 (3.65-5.03); Red Cell Distribution Width 17.7 % (13.2-15.2)
[2017-12-05 07:22] LABS: Calcium 8.4 mg/dL (8.4-10.2); INR 1.14 (0.87-1.13)
[2017-12-05 07:23] LABS: Partial Thromboplastin Time 35.5 Sec. (24.2-36.6)
[2017-12-05 07:49] LABS: Platelet Count 89 K/mm3 (140-440)
[2017-12-05] MEDS: RENVELA PO SCH ×3 (08:29→18:00)
--- NOTE | 2017-12-05 09:01 | Event Note ---
Date: 12/05/17 67 year old male with ESRD and central stenosis/occlusion requiring treatment. Had angioplasties performed with symptoms refractory to angioplasty. Plan for stent-graft. This was originally an outpatient procedure, but will be performed during this admission. NPO except meds. 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
[2017-12-05] MEDS: SENSIPAR PO SCH ×2 (10:28→22:41)
[2017-12-05] MEDS: BABY ASPIRIN PO SCH (10:29)
[2017-12-05] MEDS: HEPARIN SUB-Q SCH ×2 (10:35→22:41)
[2017-12-05] MEDS ORDERED: HEPARIN/NS 5000 UNIT/500ML(CATH LAB) 1,000 ML IR ONE (11:26)
[2017-12-05] MEDS ORDERED: XYLOCAINE 1%/ EPI 1:100,000 INFILTRATI ONE (11:28)
[2017-12-05] MEDS ORDERED: ANCEF/STERILE WATER 2 GM/20 ML IV ONE (12:05)
[2017-12-05] MEDS ORDERED: SUBLIMAZE IV ONE ×3 (12:11→12:43)
[2017-12-05] MEDS ORDERED: VERSED IV ONE ×3 (12:11→12:43)
[2017-12-05] MEDS ORDERED: VERSED ONE (12:46)
[2017-12-05] MEDS ORDERED: SUBLIMAZE ONE (12:46)
--- NOTE | 2017-12-05 13:36 | Post Operative Note ---
Date of procedure: 12/05/17 Pre-op diagnosis: SVC syndrome, right brachiocephalic occlusion Post-op diagnosis: same Procedure: 1. Ultrasound guided access of the right cephalic vein 2. Fistulogram 3. Angioplasty of the right subclavian vein, right innominate vein, SVC with a 9 mm x 60 mm angioplasty balloon 4. Fluoroscopic guided placement of a right subclavian and right innominate vein with a 12 mm x 80 mm angioplasty balloon 5. Angioplasty of the right subclavian vein, and right innominate vein with a 12 mm x 60 mm angioplasty balloon 6. Angioplasty of the right innominate vein with a 12 mm x 40 mm Conquest balloon Anesthesia: local (w/ conscious sedation) Surgeon: ROSA GR Estimated blood loss: minimal Condition: stable
--- NOTE | 2017-12-05 13:36 | Operative Report ---
Operative Report Operative Report: EXAM: 1. Ultrasound guided access of the right cephalic vein 2. Fistulogram 3. Angioplasty of the right subclavian vein, right innominate vein, SVC with a 9 mm x 60 mm angioplasty balloon 4. Fluoroscopic guided placement of a 12 mm x 80 mm Fluency stent-graft in the right subclavian and innominate vein 5. Angioplasty of the right subclavian vein, and right innominate vein with a 12 mm x 60 mm angioplasty balloon 6. Angioplasty of the right innominate vein with a 12 mm x 40 mm Conquest balloon DATE: 12/05/17 SAMPLE WORKER: ROSA GR MD INDICATION: SVC syndrome and severe right upper extremity swelling with recent bleeding from one of the superficial chest varicosities. MEDICATIONS: Please see nursing report for full details. DEVICES: 9 mm x 60 mm ever cross angioplasty balloon 12 mm x 60 mm Evercross angioplasty balloon 12 mm x 40 mm Conquest angioplasty balloon 12 mm x 80 mm Fluency stent-graft PROCEDURE: The risks, benefits, and alternatives of the procedure were discussed and written informed consent was obtained. The patient was transported in stable condition to the angiography suite. The patient's right arm AV cephalic vein was assessed by ultrasound and was patent. The patient was prepped and draped in a sterile fashion. Under ultrasound guidance, the left arm AV cephalic vein was accessed with a 21- gauge micropuncture needle. The area was anesthetized prior to access. 0.018 inch wire was advanced through the micropuncture needle into the fistula and then the needle was exchanged for a 5 Sudanese transitional dilator. The inner dilator and wire were removed and a 0.035 inch wire was advanced through the venous outflow. The transitional dilator was exchanged for a 6 Sudanese short sheath. Fistulogram was performed of the venous outflow and central veins. Digital subtraction angiography was performed demonstrating right subclavian vein occlusion and right innominate vein occlusion with numerous collaterals visualized. The lesion was crossed with an angled catheter and a Glidewire drainage wire. The catheter was used to select the SVC and digital subtraction angiography was performed demonstrating patency of the SVC. Wire was passed into the IVC. The right innominate vein and right subclavian vein was then predilated with a 9 mm x 60 mm angioplasty balloon. Digital subtraction angiography demonstrated a 4 mm channel from the right innominate vein to the right subclavian vein. The sheath was then removed and an 8 Sudanese sheath was used to predilate the track. 12 mm x 80 mm fluency stent-graft was then deployed in the right innominate vein and right subclavian vein without a sheath. 9 Sudanese sheath was then advanced over the wire. 12 mm x 60 mm angioplasty balloon was used to perform angioplasty of the stent- graft in the right innominate and right subclavian vein. Digital subtraction angiography was performed demonstrating some residual narrowing in the midportion of the stent at the point of the right first rib interface with the subclavian vein. 12 mm x 40 mm conquest balloon was used to perform angioplasty at this location at 20 meche. Digital subjective angiography demonstrated mild residual narrowing at this location, but prompt flow through the stent with no collaterals visualized. The patient's arm began to have symptomatically improvement. The distal and mid cephalic vein was patent. The wire was removed and the site was closed with a 3-0 Vicryl suture. The sheath was then removed. Hemostasis was achieved with slight manual compression. The patient was transported from the angiography suite to the floor in stable condition. IMPRESSION: Successful fistulogram. Successful 12 mm x 80 mm stent graft placement in the central veins of the dialysis access with good technical result.
[2017-12-05] MEDS: TYLENOL PO PRN ×2 (15:37→22:43)
--- NOTE | 2017-12-05 16:13 | Progress Note ---
Assessment and Plan Assessment and plan: --Hyperkalemia; resolved --End-stage renal disease; HD per schedule Continue current management, nephrology following --Vascular procedure today vascular surgeon --Mild hyponatremia; secondary to fluid overload Continue hemodialysis per schedule, closely monitor electrolytes --DVT prophylaxis; heparin renal dose --Physical therapy occupational therapy --DC planning; possible home with home health at DC Discharge in 1-2 days if stable Plan of care reviewed with the patient and his nurse History Interval history: Patient seen and examined medical records reviewed A new events reported by the nursing staff Patient scheduled for vascular procedure and later hemodialysis Patient comfortable in no new complaints Vital signs reviewed Hospitalist Physical - Constitutional Vitals: Temp Pulse Resp BP Pulse Ox 97.3 F L 113 H 20 108/68 89 12/05/17 13:33 12/05/17 14:15 12/05/17 15:37 12/05/17 14:15 12/05/17 14:15 General appearance: Present: no acute distress, well-nourished - EENT Eyes: Present: PERRL, EOM intact - Neck Neck: Present: supple, normal ROM - Respiratory Respiratory effort: normal Respiratory: bilateral: diminished, negative: rales, rhonchi, wheezing - Cardiovascular Rhythm: regular Heart Sounds: Present: S1 & S2 - Extremities Extremities: no ischemia Extremity abnormal: edema - Abdominal General gastrointestinal: soft, non-tender, non-distended, normal bowel sounds - Integumentary Integumentary: Present: clear, warm - Psychiatric Psychiatric: appropriate mood/affect - Neurologic Neurologic: CNII-XII intact, moves all extremities Results - Labs CBC & Chem 7: 12/05/17 06:46 12/05/17 06:46 Labs: Laboratory Last Values WBC 4.8 K/mm3 (4.5-11.0) 12/05/17 06:46 RBC 3.32 M/mm3 (3.65-5.03) L 12/05/17 06:46 Hgb 10.8 gm/dl (11.8-15.2) L 12/05/17 06:46 Hct 31.9 % (35.5-45.6) L 12/05/17 06:46 MCV 96 fl (84-94) H 12/05/17 06:46 MCH 32 pg (28-32) 12/05/17 06:46 MCHC 34 % (32-34) 12/05/17 06:46 RDW 17.7 % (13.2-15.2) H 12/05/17 06:46 Plt Count 89 K/mm3 (140-440) L 12/05/17 06:46 Lymph % (Auto) 4.6 % (13.4-35.0) L 12/05/17 06:46 [place] % (Auto) 8.3 % (0.0-7.3) H 12/05/17 06:46 Eos % (Auto) 2.4 % (0.0-4.3) 12/05/17 06:46 Baso % (Auto) 0.8 % (0.0-1.8) 12/05/17 06:46 Lymph # 0.2 K/mm3 (1.2-5.4) L 12/05/17 06:46 [place] # 0.4 K/mm3 (0.0-0.8) 12/05/17 06:46 Eos # 0.1 K/mm3 (0.0-0.4) 12/05/17 06:46 Baso # 0.0 K/mm3 (0.0-0.1) 12/05/17 06:46 Seg Neutrophils % 83.9 % (40.0-70.0) H 12/05/17 06:46 Seg Neutrophils # 4.1 K/mm3 (1.8-7.7) 12/05/17 06:46 PT 15.1 Sec. (12.2-14.9) H 12/05/17 06:46 INR 1.14 (0.87-1.13) H 12/05/17 06:46 APTT 35.5 Sec. (24.2-36.6) 12/05/17 06:46 Sodium 138 mmol/L (137-145) 12/05/17 06:46 Potassium 5.0 mmol/L (3.6-5.0) 12/05/17 06:46 Chloride 94.6 mmol/L (98-107) L 12/05/17 06:46 Carbon Dioxide 27 mmol/L (22-30) 12/05/17 06:46 Anion Gap 21 mmol/L 12/05/17 06:46 BUN 33 mg/dL (9-20) H 12/05/17 06:46 Creatinine 8.6 mg/dL (0.8-1.5) H 12/05/17 06:46 Estimated GFR 6 ml/min 12/05/17 06:46 BUN/Creatinine Ratio 4 % 12/05/17 06:46 Glucose 82 mg/dL (75-100) 12/05/17 06:46 Calcium 8.4 mg/dL (8.4-10.2) 12/05/17 06:46 Blood Type A POSITIVE 12/02/17 20:41 Antibody Screen Negative 12/02/17 20:41
[2017-12-05] MEDS ORDERED: NACL 0.9 (PRIMING MACHINE ONLY DIALYSIS) MC ONE (17:59)
[2017-12-05] MEDS: NORCO 7.5/325 PO PRN (18:25)
[2017-12-05] MEDS ORDERED: MORPHINE IV ONE (19:20)
[2017-12-06] MEDS: NORCO 7.5/325 PO PRN ×2 (01:14→07:00)
[2017-12-06] MEDS: DUONEB *Not for PRN Use IH SCH ×2 (02:43→08:46)
[2017-12-06 05:50] LABS: Basophils % (Auto) 0.8 % (0.0-1.8); Eosinophils # (Auto) 0.1 K/mm3 (0.0-0.4); Eosinophils % (Auto) 2.9 % (0.0-4.3); Hematocrit 32.8 % (35.5-45.6); Hemoglobin 10.9 gm/dl (11.8-15.2); Lymphocytes # (Auto) 0.2 K/mm3 (1.2-5.4); Lymphocytes % (Auto) 4.1 % (13.4-35.0); Mean Corpuscular HGB Conc 33 % (32-34); Mean Corpuscular Hemoglobin 32 pg (28-32); Mean Corpuscular Volume 96 fl (84-94); Monocytes # (Auto) 0.4 K/mm3 (0.0-0.8); Monocytes % (Auto) 8.9 % (0.0-7.3); Red Cell Distribution Width 17.7 % (13.2-15.2)
[2017-12-06 05:52] LABS: Platelet Count 73 K/mm3 (140-440)
[2017-12-06 06:21] LABS: Calcium 8.1 mg/dL (8.4-10.2)
--- NOTE | 2017-12-06 07:00 | Progress Note ---
Assessment and Plan - Patient Problems (1) ESRD (end stage renal disease) Current Visit: Yes Status: Chronic Plan to address problem: HD tommorow per his TTS schedule. (2) SVC (superior vena cava obstruction) Current Visit: No Status: Acute Plan to address problem: Patient underwent angioplasty and stent-graft placement in the right subclavian and innominate vein in the setting of SVC syndrome and right brachiocephalic occlusion with vascular surgery, POD 1. Further recommendation per vascular surgery. (3) Hyperkalemia Current Visit: Yes Status: Acute Plan to address problem: Resolved with HD. Will continue to monitor. (4) Bleeding Current Visit: Yes Status: Acute Plan to address problem: Bleeding has stopped at this time. Will monitor. (5) Secondary hyperparathyroidism Current Visit: No Status: Acute Plan to address problem: Restarted his home regimen of phos binders. Subjective Date of service: 12/06/17 Interval history: Patient is complaining of cramping pain in his RUE, that has been persistent all night. Patient underwent angioplasty and stent-graft placement in the right subclavian and innominate vein in the setting of SVC syndrome and right brachiocephalic occlusion with vascular surgery, POD 1. He also had HD session yesterday after the OR. Labs noted, and there is no acute needs for HD at this time. Objective - Vital Signs Vital signs: Vital Signs - 12hr 12/05/17 12/05/17 12/05/17 19:00 19:25 19:34 Temperature 98.0 F Pulse Rate 110 H Pulse Rate [ Posterior Bilateral Throughout] Respiratory 18 20 20 Rate Respiratory Rate [Posterior Bilateral Throughout] Respiratory Rate [Right Arm ] Blood Pressure 132/54 O2 Sat by Pulse Oximetry 12/05/17 12/05/17 12/05/17 19:35 19:44 20:04 Temperature 97.3 F L Pulse Rate 111 H Pulse Rate [ Posterior Bilateral Throughout] Respiratory 24 20 Rate Respiratory Rate [Posterior Bilateral Throughout] Respiratory 20 Rate [Right Arm ] Blood Pressure 145/66 O2 Sat by Pulse 89 Oximetry 12/05/17 12/05/17 12/05/17 20:37 20:38 20:51 Temperature Pulse Rate Pulse Rate [ 103 H 99 H Posterior Bilateral Throughout] Respiratory Rate Respiratory 18 18 Rate [Posterior Bilateral Throughout] Respiratory Rate [Right Arm ] Blood Pressure O2 Sat by Pulse 96 Oximetry 12/05/17 12/05/17 12/05/17 22:00 22:43 23:43 Temperature Pulse Rate Pulse Rate [ Posterior Bilateral Throughout] Respiratory 20 20 20 Rate Respiratory Rate [Posterior Bilateral Throughout] Respiratory Rate [Right Arm ] Blood Pressure O2 Sat by Pulse Oximetry 12/06/17 12/06/17 12/06/17 01:14 02:14 02:18 Temperature 97.6 F Pulse Rate 109 H Pulse Rate [ Posterior Bilateral Throughout] Respiratory 20 20 20 Rate Respiratory Rate [Posterior Bilateral Throughout] Respiratory Rate [Right Arm ] Blood Pressure 104/42 O2 Sat by Pulse 90 Oximetry 12/06/17 12/06/17 12/06/17 02:43 02:52 04:02 Temperature Pulse Rate 110 H Pulse Rate [ 101 H 104 H Posterior Bilateral Throughout] Respiratory Rate Respiratory 18 18 Rate [Posterior Bilateral Throughout] Respiratory Rate [Right Arm ] Blood Pressure O2 Sat by Pulse Oximetry - General Appearance General appearance: well-developed, well-nourished, appears stated age EENT: ATNC, PERRL Neck: no JVD, no thyromegaly, supple Respiratory: Present: Clear to Ascultation, Normal Exam Cardiology: regular, S1S2, other (RUE AVG (+)T/B) Gastrointestinal: normal, normoactive bowel sounds Integumentary: warm and dry Neurologic: no focal deficit, no asterixis Musculoskeletal: other (his RLE edema has significantly decreased. He dose have noteable erythema in the right dorsal/palmar region. ) Psychiatric: cooperative - Lab 12/06/17 05:20 12/06/17 05:20 Most recent lab results Calcium 8.1 mg/dL (8.4-10.2) L 12/06/17 05:20 - Allied health notes Allied health notes reviewed: nursing
[2017-12-06] MEDS: RENVELA PO SCH ×3 (08:34→18:17)
[2017-12-06] MEDS: TYLENOL PO PRN (08:34)
[2017-12-06] MEDS: HEPARIN SUB-Q SCH (09:42)
[2017-12-06] MEDS: SENSIPAR PO SCH (09:42)
[2017-12-06] MEDS: BABY ASPIRIN PO SCH (09:42)
[2017-12-06] MEDS ORDERED: MORPHINE IV PRN (11:09)
--- NOTE | 2017-12-06 14:18 | Progress Note ---
Assessment and Plan s/p right innominate stenting for central venous stenosis facial edema decompressed, access worked good during HD yesterday f/u as outpatient Subjective Date of service: 12/06/17 Interval history: Patient is doing well, had HD yesterday Objective - Exam Narrative Exam: facial edema improved - Constitutional Vitals: Vital Signs - 12hr 12/06/17 12/06/17 12/06/17 02:18 02:43 02:52 Temperature 97.6 F Pulse Rate 109 H Pulse Rate [ Anterior Bilateral Throughout] Pulse Rate [ 101 H 104 H Posterior Bilateral Throughout] Respiratory 20 Rate Respiratory Rate [Anterior Bilateral Throughout] Respiratory 18 18 Rate [Posterior Bilateral Throughout] Blood Pressure 104/42 O2 Sat by Pulse 90 Oximetry 12/06/17 12/06/17 12/06/17 04:02 07:00 07:41 Temperature 97.7 F Pulse Rate 110 H 98 H Pulse Rate [ Anterior Bilateral Throughout] Pulse Rate [ Posterior Bilateral Throughout] Respiratory 20 20 Rate Respiratory Rate [Anterior Bilateral Throughout] Respiratory Rate [Posterior Bilateral Throughout] Blood Pressure 127/97 O2 Sat by Pulse 95 Oximetry 12/06/17 12/06/17 12/06/17 08:34 08:40 08:49 Temperature Pulse Rate Pulse Rate [ 100 H 100 H Anterior Bilateral Throughout] Pulse Rate [ Posterior Bilateral Throughout] Respiratory 20 Rate Respiratory 18 20 Rate [Anterior Bilateral Throughout] Respiratory Rate [Posterior Bilateral Throughout] Blood Pressure O2 Sat by Pulse Oximetry 12/06/17 12/06/17 12/06/17 09:34 10:00 11:53 Temperature Pulse Rate Pulse Rate [ Anterior Bilateral Throughout] Pulse Rate [ Posterior Bilateral Throughout] Respiratory 20 20 Rate Respiratory Rate [Anterior Bilateral Throughout] Respiratory Rate [Posterior Bilateral Throughout] Blood Pressure O2 Sat by Pulse 97 Oximetry - Labs CBC & Chem 7: 12/06/17 05:20 12/06/17 05:20 Labs: Abnormal lab results 12/06/17 12/06/17 Range/Units 05:20 05:20 RBC 3.40 L (3.65-5.03) M/mm3 Hgb 10.9 L (11.8-15.2) gm/dl Hct 32.8 L (35.5-45.6) % MCV 96 H (84-94) fl RDW 17.7 H (13.2-15.2) % Plt Count 73 L (140-440) K/mm3 Lymph % (Auto) 4.1 L (13.4-35.0) % [place] % (Auto) 8.9 H (0.0-7.3) % Lymph # 0.2 L (1.2-5.4) K/mm3 Seg Neutrophils % 83.3 H (40.0-70.0) % BUN 21 H (9-20) mg/dL Creatinine 6.9 H (0.8-1.5) mg/dL Calcium 8.1 L (8.4-10.2) mg/dL
--- NOTE | 2017-12-06 15:32 | Discharge Summary ---
Providers - Providers Date of Admission: 12/02/17 23:36 Date of discharge: 12/06/17 Attending physician: ROSY MCKEON 12/02/17 21:36 Consult to Physician [CONS] Urgent Comment: Dr. Nicole spoke with Dr. Cerna @ [phone] Consulting Provider: JUWAN CERNA Physician Instructions: Reason For Exam: hyperkalemia, end-stage renal disease 12/03/17 09:25 Physical Therapy Evaluation and Treat [CONS] Routine Comment: Reason For Exam: dizziness/near syncope 12/04/17 16:06 Consult to Physician [CONS] Routine Comment: Consulting Provider: ROSA GR Physician Instructions: Reason For Exam: scheduled outpt vasc procedure/AV graft tomorrow Primary care physician: FILM MOUNTER Hospitalization Condition: Fair Disposition: DC/[place]-06 HOME UNDER HOME [facility] Core Measure Documentation - Palliative Care Palliative Care/ Comfort Measures: Not Applicable - Core Measures Any of the following diagnoses?: none Exam - Constitutional Vitals: Temp Pulse Resp BP Pulse Ox 97.7 F 100 H 20 127/97 97 12/06/17 07:41 12/06/17 08:49 12/06/17 11:53 12/06/17 07:41 12/06/17 10:00 General appearance: Present: no acute distress, well-nourished - EENT Eyes: Present: PERRL, EOM intact - Neck Neck: Present: supple, normal ROM - Respiratory Respiratory effort: normal Respiratory: bilateral: diminished, negative: rales, rhonchi, wheezing - Cardiovascular Rhythm: regular Heart Sounds: Present: S1 & S2 - Extremities Extremities: no ischemia, No edema - Abdominal General gastrointestinal: Present: soft, non-tender, non-distended, normal bowel sounds - Integumentary Integumentary: Present: clear, warm - Musculoskeletal Musculoskeletal: strength equal bilaterally - Psychiatric Psychiatric: appropriate mood/affect, cooperative - Neurologic Neurologic: CNII-XII intact, moves all extremities Plan Activity: advance as tolerated, fall precautions Diet: renal Additional Instructions: Follow renal/hemodialysis per schedule. Fall precautions Follow up with: PRIMARY CARE, [Primary Care Provider] - 3-5 Days ZENON DALTON DO [Staff Physician] - 7 Days GREGORIO GARCIA DO [Staff Physician] - 7 Days
[2017-12-06 15:59] VITALS: BP 77/50
== END 2017-12-06 18:35 | disposition home or self-care (01) | DRG 252 ==
LOC: ED 20:07 → 2B-ACE 23:36
PROVIDERS: ADMIT Internal Medicine; ATTEND Internal Medicine
PROC: 0HQ5XZZ Repair Chest Skin, External Approach (ICD-10-PCS; 2017-12-02)
PROC: 5A1D70Z Performance of Urinary Filtration, Intermittent, Less than 6 Hours Per Day (ICD-10-PCS; 2017-12-03)
PROC: 3E0234Z Introduction of Serum, Toxoid and Vaccine into Muscle, Percutaneous Approach (ICD-10-PCS; 2017-12-03)
PROC: 05753DZ Dilation of Right Subclavian Vein with Intraluminal Device, Percutaneous Approach (ICD-10-PCS; principal; 2017-12-05)
PROC: 05733DZ Dilation of Right Innominate Vein with Intraluminal Device, Percutaneous Approach (ICD-10-PCS; 2017-12-05)
PROC: B51W1ZZ Fluoroscopy of Dialysis Shunt/Fistula using Low Osmolar Contrast (ICD-10-PCS; 2017-12-05)
PROC: B546ZZ3 Ultrasonography of Right Subclavian Vein, Intravascular (ICD-10-PCS; 2017-12-05)
PROC: B5181ZZ Fluoroscopy of Superior Vena Cava using Low Osmolar Contrast (ICD-10-PCS; 2017-12-05)
PROC: B51VZZZ Fluoroscopy of Other Veins (ICD-10-PCS; 2017-12-05)
PROC: B5161ZZ Fluoroscopy of Right Subclavian Vein using Low Osmolar Contrast (ICD-10-PCS; 2017-12-05)
PROC: 5A1D70Z Performance of Urinary Filtration, Intermittent, Less than 6 Hours Per Day (ICD-10-PCS; 2017-12-05)
DX: I87.1 Compression of vein (principal); N18.6 End stage renal disease; E87.1 Hypo-osmolality and hyponatremia; N25.81 Secondary hyperparathyroidism of renal origin; I13.2 Hypertensive heart and chronic kidney disease with heart failure and with stage 5 chronic kidney disease, or end stage renal disease; E87.5 Hyperkalemia; I50.9 Heart failure, unspecified; M17.0 Bilateral primary osteoarthritis of knee; J44.9 Chronic obstructive pulmonary disease, unspecified; Z86.718 Personal history of other venous thrombosis and embolism; Z79.82 Long term (current) use of aspirin; Z95.810 Presence of automatic (implantable) cardiac defibrillator; Z79.899 Other long term (current) drug therapy; Z23 Encounter for immunization
CPT/HCPCS: 36415; 36903; 36907; 80048; 85025; 85610; 85730; 86850; 86900; 86901; 87116; 90686; 90732; 94640; 94760; 96365; 96375; C1725; C1751; C1769; C1894; G8978-GP; G8980-GP; J0610; J0690; J1644; J2250; J2270; J2597; J3010; J7030; Q9967